=== PATIENT | female | born 1940 | race Caucasian/White ===

== ENCOUNTER 2019-03-14 16:55 | Inpatient (IN) | payer MEDICARE ==
[2019-03-15] MEDS ORDERED: Maalox 30 mL Cup PO PRN (14:26)
[2019-03-15] MEDS ORDERED: Magnesium Hydroxide (MOM) 30 mL UDC PO PRN (14:26)
[2019-03-16] MEDS: Multivitamin Tab PO SCH (08:50)
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
--- NOTE | 2019-03-17 00:07 | History & Physical ---
ADMIT DATE: 03/16/2019 REASON FOR ADMISSION: Psychiatric disorder. HISTORY OF PRESENT ILLNESS: This is an 78-year-old female with underlying history of hypertension, hyperlipidemia, hypothyroidism and prior history of valvular heart disease, status post repair, on Coumadin, admitted to the [facility] for underlying psychiatric illnesses by Dr. Hinkle. Dr. Hinkle requested medical H and P on this patient. During my evaluation, the patient's daughter was at bedside. Daughter helped me providing most of the history. 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 PAST MEDICAL HISTORY: Hypothyroidism; hypertension; hyperlipidemia; old CVA, late effect and valvular heart ____ in the past. FAMILY HISTORY: Noncontributory. SOCIAL HISTORY: The patient lives at home. No reported alcohol, tobacco or drug use. CURRENT MEDICATIONS: Per medication reconciliation. ALLERGIES: No known allergies. REVIEW OF SYSTEMS: No reported fever, no chills, no diarrhea, no vomiting, no abdominal pain, no headache, no chest pain or trouble breathing or concerns. PHYSICAL EXAMINATION: VITAL SIGNS: Temperature 97.4, pulse 61, respirations 18, blood pressure 134/59, oxygen ____ on room air. HEENT: Unremarkable. HEART: S1, S2 normal. LUNGS: Clear to auscultation. ABDOMEN: Soft, nontender, no guarding. NEUROLOGIC: The patient is awake, alert, follows commands. Aphasia noted. ASSESSMENT: 1. 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 2. Hypertension. 3. Hyperlipidemia. 4. Hypothyroidism. 5. Valvular heart disease, status post surgery. PLAN: The patient is admitted to [facility] Unit. Psych evaluation and management per Psychiatry. Continue atenolol. The patient is also on Coumadin. The patient's vital signs will be monitored. Psychotropic medication management per psychiatrist. The patient is medically stable. . JOB# [id number]
[2019-03-17] MEDS: Multivitamin Tab PO SCH (08:42)
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
[2019-03-18] MEDS: Multivitamin Tab PO SCH (08:45)
[2019-03-19] MEDS: Multivitamin Tab PO SCH (09:04)
[2019-03-20] MEDS: Multivitamin Tab PO SCH (08:35)
[2019-03-21] MEDS: Multivitamin Tab PO SCH (09:55)
[2019-03-22] MEDS: Levothyroxine 0.05 Mg Tab PO SCH (06:41)
[2019-03-22] MEDS: Multivitamin Tab PO SCH (09:02)
[2019-03-23] MEDS: Levothyroxine 0.05 Mg Tab PO SCH (06:45)
[2019-03-23] MEDS: Multivitamin Tab PO SCH (09:33)
[2019-03-24] MEDS: Levothyroxine 0.05 Mg Tab PO SCH (06:57)
[2019-03-24] MEDS: Multivitamin Tab PO SCH (08:43)
[2019-03-25] MEDS: Levothyroxine 0.05 Mg Tab PO SCH (06:39)
[2019-03-25] MEDS: Multivitamin Tab PO SCH (08:11)
[2019-03-26] MEDS: Levothyroxine 0.05 Mg Tab PO SCH (06:44)
[2019-03-26] MEDS: Multivitamin Tab PO SCH (08:34)
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
--- NOTE | 2019-03-26 20:34 | Progress Notes ---
DATE: 03/23/2019 SUBJECTIVE: The patient in the hospital, still calm, and sleeping about 5 hours. Speech impaired, still disoriented, somewhat sad, withdrawn, keeps to herself. We are working on a safe discharge plan. Otherwise, no agitation, no discomfort noted. JOB# [id number]
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
--- NOTE | 2019-03-26 20:34 | Progress Notes ---
DATE: 03/20/2019 SUBJECTIVE: The patient in the hospital, poorly oriented, medication compliant, very calm and cooperative, unable to care for basic needs. She is unclear where she is going to go when she leaves here, is mostly here because of her disability, history of CVA. PLAN: We will continue to monitor pending confirmation of placement by social media marketer. JOB# [id number]
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
--- NOTE | 2019-03-26 20:35 | Progress Notes ---
DATE: SUBJECTIVE: The patient was seen and evaluated. The patient's chart reviewed. No acute events reported overnight. Today on avif-yi-[id number] evaluation, the patient continues to demonstrate severe aphasia, difficult to communicate, was easily anxious, stressful. ASSESSMENT AND PLAN: History of dementia with behavior disturbances. She continues to be disorganized. We will continue with primary psychiatrist's treatment plan and goals. [facility]# [id number]
--- NOTE | 2019-03-26 20:35 | Progress Notes ---
DATE: 03/25/2019 SUBJECTIVE: The patient was seen and evaluated. The patient's chart reviewed. Today on [id number]-nz-[id number] evaluation, the patient continues to need redirections, very difficult to understand, incoherent at times, disorganized. She has been compliant, noted to be slightly calmer, but needs a lot of redirection. MENTAL STATUS EXAMINATION: Disengaged and avoidant, difficult to understand, incoherent at times. ASSESSMENT AND PLAN: The patient is an 78-year-old female with behavior disturbances. We will continue with the current medication regimen. Reconciliation reviewed, which includes Tylenol, Maalox, Tenormin, Lipitor, Synthroid, milk of magnesia, Theragran, warfarin, and Ambien as needed. JOB# [id number]
[2019-03-27] MEDS: Levothyroxine 0.05 Mg Tab PO SCH (06:34)
[2019-03-27] MEDS: Multivitamin Tab PO SCH (08:31)
--- NOTE | 2019-03-27 20:52 | Progress Notes ---
DATE: 03/27/2019 The patient is calm. Currently pending a safe discharge plan. No events, no agitation, not really able to understand it whatsoever. Fair sleep, fair appetite, aphasic. We will continue to monitor, concerns for her ability to tend to her basic needs. JOB# [id number]
[2019-03-28] MEDS: Levothyroxine 0.05 Mg Tab PO SCH (06:43)
[2019-03-28] MEDS: Multivitamin Tab PO SCH (08:44)
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
[2019-03-29] MEDS: Levothyroxine 0.05 Mg Tab PO SCH (06:43)
--- NOTE | 2019-03-29 07:10 | Progress Notes ---
DATE: 03/29/2019 SUBJECTIVE: The patient is in the hospital. Resting comfortably, seems to be calm, following unit rules and directions. No outbursts. We are trying to help her with a safe discharge plan. It is unclear where she is going to go when she leaves. Coffee Grower involves with this. Medications were reviewed. Labs reviewed. Fair sleep and appetite. JOB# [id number]
[2019-03-29] MEDS: Multivitamin Tab PO SCH (08:41)
[2019-03-30] MEDS: Levothyroxine 0.05 Mg Tab PO SCH (06:41)
[2019-03-30] MEDS: Multivitamin Tab PO SCH (09:05)
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
[2019-03-31] MEDS: Levothyroxine 0.05 Mg Tab PO SCH (06:37)
[2019-03-31] MEDS: Multivitamin Tab PO SCH (08:24)
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
[2019-04-01] MEDS: Levothyroxine 0.05 Mg Tab PO SCH (06:39)
[2019-04-01] MEDS: Multivitamin Tab PO SCH (08:32)
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
[2019-04-02] MEDS: Levothyroxine 0.05 Mg Tab PO SCH (06:42)
[2019-04-02] MEDS: Multivitamin Tab PO SCH (08:22)
[2019-04-02] MEDS ORDERED: WARFARIN SODIUM PO SCH (20:00)
--- NOTE | 2019-04-02 22:27 | Progress Notes ---
DATE: SUBJECTIVE: The patient was seen, chart reviewed, and discussed with staff. The patient continues to be disoriented, confused, and confabulating most answers. She is currently awaiting placement, has been compliant with medications. No reports of any verbal or physical altercations. PLAN: We will continue to follow up with cyanide case hardener regarding the patient's placement upon discharge. Titrate medications as needed. JOB# [id number]
[2019-04-03] MEDS: Levothyroxine 0.05 Mg Tab PO SCH (06:47)
[2019-04-03] MEDS: Multivitamin Tab PO SCH (09:05)
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
--- NOTE | 2019-04-03 21:26 | General Progress Note ---
Subjective - Review of Systems Service Date: 04/02/19 Subjective: Patient seen and examined doing ok no new concern noted Objective - Physical Exam Vitals and I&O: Vital Signs Temp 97.1 F 04/03/19 20:14 Pulse 52 04/03/19 20:14 Resp 18 04/03/19 20:14 BP 134/72 04/03/19 13:56 Pulse Ox 96 04/03/19 20:14 Intake & Output 04/03/19 04/03/19 04/04/19 06:59 18:59 06:59 Intake Total 240 240 Balance 240 240 Intake: Oral 240 240 Other: # Voids 2 3 2 # Bowel Movements 0 Active Medications: Current Medications Acetaminophen (Tylenol) 650 mg PO Q4HR PRN PRN Reason: Mild Pain (Scale 1-3) Stop: 05/14/19 14:25 Acetaminophen (Tylenol) 650 mg PO Q4HR PRN PRN Reason: TEMP ABOVE 100 Stop: 05/14/19 14:47 Al Hydrox/Mg Hydrox/Simethicone (Maalox) 30 ml PO Q4HR PRN PRN Reason: GI DISTRESS Stop: 05/14/19 14:25 Atenolol (Tenormin) 25 mg PO DAILY [facility] Stop: 05/16/19 08:59 Last Admin: 04/03/19 09:05 Dose: 25 mg Atorvastatin Calcium (Lipitor) 40 mg PO DAILY [facility]; Protocol Stop: 05/16/19 08:59 Last Admin: 04/03/19 09:05 Dose: 40 mg Levothyroxine Sodium (Synthroid) 0.05 mg PO QDAC [facility] Stop: 05/21/19 07:29 Last Admin: 04/03/19 06:47 Dose: 0.05 mg Multivitamins/Vitamin C (Theragran) 1 tab PO DAILY [facility] Stop: 05/15/19 08:59 Last Admin: 04/03/19 09:05 Dose: 1 tab Warfarin Sodium (Coumadin Per Pharmacy) 1 ea [facility] PRN PRN PRN Reason: PER PHARMACY Stop: 05/23/19 13:18 Warfarin Sodium 5 mg/ Warfarin (Sodium 2.5 mg) 7.5 mg PO QPM [facility] Stop: 04/05/19 16:59 Last Admin: 04/03/19 16:33 Dose: 7.5 mg Zolpidem Tartrate (Ambien) 5 mg PO HS PRN PRN Reason: Insomnia Stop: 05/14/19 14:25 Last Admin: 03/22/19 21:23 Dose: 5 mg Cardiovascular: Regular rate Lungs: Clear to auscultation Assessment/Plan - Assessment Assessment: Afib Hypothyrodism Hyperlipidemia Psych disorder - Plan Plan: Monitor PT/INR Coumidine Levothyroxine Statin Psych follow up Nutritional Asmnt/Malnutr-PDOC - Dietary Evaluation Malnutrition Findings (Please click <Entered> for more info): Nutritional Asmnt/Malnutrition Start: 03/21/19 11: 55 Text: Status: Complete Freq: Protocol: Document 03/21/19 11:55 NENO (Rec: 03/21/19 11:58 NENO [email or web address]) Nutritional Asmnt/Malnutrition Patient General Information Nutritional Screening Low 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 Pt is eating an estimated 70% of meals x 3 days Per Meal/ Nutrition Activity Record. Dietary is currently providing an estimated 3100 kcals and 115 gm Pro, per Pt PO intake this is providing an estimated 2170 kcals and 80gm Pro to meet 100+% kcal and 100+% Pro needs- adequate to promote gradual weight gain to trend towards normal BMI and IBW. Visited pt today, she is hard of hearing, so I wrote down questions for her pertaining to her knowledge of a food- drug interaction between vitamin K and her coumadin medication. Pt was confused, unable to get answers/ comprehend what pt was saying; unable to provide education. Gave the charge NurseLaura education materials to place in d/c packet. Anthropometrics HT: 57 WT: 115 LB (52.27 kg) BMI: 18.01 (underweight) GI/ Skin Integrity GI: WNL, Soft, Flat BM: 03/19 x1 I/O: 2000/Not Noted Skin: WNL, Dryness Wilbert: 19 Diet Order: Regular Estimated Energy Needs: ( Geriatric, Underweight) 1351-6901 kcals (28-35 kcals/ kg) 52-63g Pro (1.0-1.2 g/kg) 2139-2202 ml (28-35 ml/kg) Current Diet Order/ Nutrition Support Regular Patient / S.O Can't verbalize diet edu Pertinent Medications Maalox (PRN), Lipitor, MOM ( PRN), Theragran, Warfarin, Tenormin Pertinent Labs 03/17: HDL 47, LDL 137, A1c 5. 6, ProTime 10.6, INR 1.1 Nutritional Hx/Data Height 1.7 m Height (Calculated Centimeters) 170.2 Current Weight (lbs) 52.163 kg Weight (Calculated Kilograms) 52.2 Weight (Calculated Grams) 64875.1 [place] Body Weight 135 LB (61.36 kg) % [place] Body Weight 85 Body Mass Index (BMI) 18.0 Weight Status Underweight GI Symptoms GI Symptoms None Last BM 03/19 x1 Skin Integrity/Comment: Skin: WNL, Dryness Wilbert: 19 Estimated Nutritional Goals BEE in Kcals: Using Current wt Calories/Kcals/Kg 28-35 Kcals Calculated 5426-2040 Protein: Using Current wt Protein g/k.0-1.2 Protein Calculated 52-63 Fluid: ml 3441-2664 ml (28-35 ml/kg) Nutritional Problem 1. Problem Problem Food-medication (Warfarin) interaction Etiology r/t vitamin K intake and medication effectiveness Signs/Symptoms: aeb pt on Warfarin. Malnutrition Related to Morbid Obesity Malnutrition related to morbid obesity No Intervention/Recommendation Recommendations by RD Decrease Calorie Intake Comments 1. Continue regular diet as tolerated. 2. Provide food-medication interaction education materials (completed). Expected Outcomes/Goals Expected Outcomes/Goals 1. PO intake to continue to meet 75% of estimated nutritional needs. 2. Monitor PO intake, wt, nutrition related labs, and skin integrity. 3. F/U as low risk in 7-10 days, 03/28-03/31/2019
[2019-04-04] MEDS: Levothyroxine 0.05 Mg Tab PO SCH (06:48)
[2019-04-04] MEDS: Multivitamin Tab PO SCH (08:40)
--- NOTE | 2019-04-04 21:15 | Progress Notes ---
DATE: 04/04/2019 SUBJECTIVE: An 78-year-old female who remains very confused on exam. I do spend a lot of time yesterday and today, trying to further assess her mentation, but it is very difficult. I talked to her, wrote things down on paper. She cannot abstract, she cannot subtract or do any addition. She asked to refer to a calendar to tell me the year, the month and the date. She cannot tell me where she is or why she is here. I did fill out capacity declaration. PLAN: We will continue to monitor. Also pending a safe disposition. JOB# [id number]
--- NOTE | 2019-04-04 23:48 | Progress Notes ---
DATE: Case was discussed with staff of the patient, reviewed records. The patient continues to stay for herself. Continues to be unpredictable, unable to express herself. Sleeping better, eating better. Staff is working on discharge plan. No side effects with the medication, no sedation, no nausea, no extrapyramidal symptoms. We will continue outpatient group therapy, milieu therapy, and adjust medications as needed. JOB# [id number]
[2019-04-05] MEDS: Levothyroxine 0.05 Mg Tab PO SCH (06:40)
[2019-04-05] MEDS: Multivitamin Tab PO SCH (08:57)
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
[2019-04-06] MEDS: Levothyroxine 0.05 Mg Tab PO SCH (06:38)
[2019-04-06] MEDS: Multivitamin Tab PO SCH (08:06)
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
== END 2019-04-06 16:30 | DRG 884 ==
LOC: GERO 03-15 12:06
PROVIDERS: ADMIT Psychiatry & Neurology Psychiatry; ATTEND Psychiatry & Neurology Psychiatry
DX: F03.90 Unspecified dementia, unspecified severity, without behavioral disturbance, psychotic disturbance, mood disturbance, and anxiety (principal); F39 Unspecified mood [affective] disorder; I10 Essential (primary) hypertension; E78.5 Hyperlipidemia, unspecified; E03.9 Hypothyroidism, unspecified; Z79.01 Long term (current) use of anticoagulants; I69.320 Aphasia following cerebral infarction
CPT/HCPCS: 83036-90; 90899; G0410; Z7610

== ENCOUNTER 2019-11-15 23:26 | Inpatient (IN) | payer MEDICARE, MEDICAID ==
[2019-11-16] MEDS ORDERED: Acetaminophen 500 MG TAB PO PRN (04:05)
[2019-11-16] MEDS ORDERED: Magnesium Hydroxide (MOM) 30 mL UDC PO PRN (04:05)
[2019-11-16] MEDS ORDERED: Maalox 30 mL Cup PO PRN (04:05)
[2019-11-16 04:06] VITALS: BP 152/92
[2019-11-16] MEDS: Multivitamin Tab PO SCH (08:24)
--- NOTE | 2019-11-16 15:45 | History & Physical ---
ADMIT DATE: 11/16/2019 CHIEF COMPLAINT: Agitation, depression. HISTORY OF PRESENT ILLNESS: We have an 79-year-old female with dementia, hypertension, cardiovascular disease, who is on Coumadin, presents with agitation and depression. The patient is confused, cannot give any meaningful history. It is not quite clear at this time why the patient is taking Coumadin. No nausea, vomiting, abdominal pain, diarrhea. PAST MEDICAL HISTORY: 1. Dementia. 2. Hypertension. PAST SURGICAL HISTORY: None. MEDICATIONS: List includes Coumadin. ALLERGIES: None. SOCIAL HISTORY: Tobacco, IV drugs, ETOH negative. PHYSICAL EXAMINATION: VITAL SIGNS: Temperature is 98.2, pulse 56, respirations 18, blood pressure is 108/49, satting 97% on room air. HEENT: Normocephalic, atraumatic head exam. NECK: Supple. CARDIOVASCULAR: Regular rate and rhythm. LUNGS: Decreased breath sounds. ABDOMEN: Soft, nontender. EXTREMITIES: No edema, cyanosis or clubbing. CN is grossly intact ASSESSMENT AND PLAN: 1. Coagulopathy, on Coumadin. 2. Dementia. 3. Hypertension. The patient will have routine labs done including stat INR. Rechecked with the family members to get better understanding of her medical profile and specifically to know why the patient is taking Coumadin. I will await for their phone call back. JOB# [id number] MARINA
[2019-11-17] MEDS: Levothyroxine 0.05 Mg Tab PO SCH (06:38)
[2019-11-17] MEDS: Multivitamin Tab PO SCH (08:39)
[2019-11-17 15:44] LABS: CHOLESTEROL 158 mg/dL (<200); LDL CHOLESTEROL 101 mg/dL (0-129); TRIGLYCERIDES 130 mg/dL (30-150)
--- NOTE | 2019-11-17 16:04 | Internal Medicine Prog Note ---
Internal Medicine Subjective - Subjective Service Date: 11/17/19 Patient seen and examined:: without staff Patient is:: awake Per staff patient has:: no adverse event, no episodes of fall Internal Medicine Objective - Results Recent Labs: Laboratory Last Values POC Glucose 96 MG/DL (70 - 105) 11/16/19 03:10 Triglycerides 130 mg/dL (30-150) 11/17/19 12:31 Cholesterol 158 mg/dL (<200) 11/17/19 12:31 LDL Cholesterol 101 mg/dL (0-129) 11/17/19 12:31 HDL Cholesterol 42 mg/dL (>55) L 11/17/19 12:31 - Physical Exam Vitals and I&O: Vital Signs Temp 97.5 F 11/17/19 15:29 Pulse 57 11/17/19 15:29 Resp 20 11/17/19 15:29 BP 102/63 11/17/19 15:29 Pulse Ox 96 11/17/19 15:29 Intake & Output 11/16/19 11/17/19 11/17/19 18:59 06:59 18:59 Intake Total 1000 120 Balance 1000 120 Intake: Oral 1000 120 Other: # Voids 3 2 # Bowel Movements 1 Active Medications: Current Medications Acetaminophen (Tylenol) 650 mg PO Q4H PRN PRN Reason: Pain (Mild 1-3) Stop: 01/15/20 04:04 Acetaminophen (Tylenol Extra Strength) 1,000 mg PO Q6H PRN PRN Reason: Pain (Moderate 4-6) Stop: 01/15/20 04:04 Al Hydrox/Mg Hydrox/Simethicone (Maalox) 30 ml PO Q4HR PRN PRN Reason: GI DISTRESS Stop: 01/15/20 04:04 Atenolol (Tenormin) 25 mg PO DAILY [facility] Stop: 01/16/20 08:59 Last Admin: 11/17/19 08:41 Dose: 25 mg Atorvastatin Calcium (Lipitor) 40 mg PO DAILY [facility]; Protocol Stop: 01/16/20 08:59 Last Admin: 11/17/19 08:38 Dose: 40 mg Ibuprofen (Motrin) 400 mg PO Q4H PRN PRN Reason: Pain (Severe 7-10) Stop: 01/15/20 04:04 Levothyroxine Sodium (Synthroid) 0.05 mg PO QDAC [facility] Stop: 01/16/20 07:29 Last Admin: 11/17/19 06:38 Dose: 0.05 mg Lorazepam (Ativan) 0.5 mg PO Q4HR PRN; Protocol PRN Reason: Anxiety Stop: 12/16/19 04:04 Last Admin: 11/17/19 08:38 Dose: 0.5 mg Magnesium Hydroxide (Milk Of Magnesia) 30 ml PO HS PRN PRN Reason: Constipation Multivitamins/Vitamin C (Theragran) 1 tab PO DAILY [facility] Stop: 01/15/20 08:59 Last Admin: 11/17/19 08:39 Dose: 1 tab Quetiapine Fumarate (Seroquel) 12.5 mg PO BID [facility]; Protocol Stop: 01/15/20 08:59 Last Admin: 11/17/19 08:38 Dose: 12.5 mg Zolpidem Tartrate (Ambien) 5 mg PO HS PRN PRN Reason: Insomnia Stop: 01/15/20 04:52 HEENT: NC/AT, PERRLA Neck: Supple, No JVD Lungs: CTAB Cardiovascular: RRR, Normal S1, Normal S2 Abdomen: soft Extremities: clear Internal Medicine Assmt/Plan - Assessment Assessment: 1. HTN 2. Depression - Plan Plan: continue supportive care d/w r.n. reviewed complete medical records Nutritional Asmnt/Malnutr-PDOC - Dietary Evaluation Malnutrition Findings (Please click <Entered> for more info): Nutritional Asmnt/Malnutrition Start: 11/16/19 12: 33 Text: Status: Complete Freq: Protocol: Document 11/16/19 13:10 NENO (Rec: 11/16/19 13:14 NENO [id number]) Nutritional Asmnt/Malnutrition Patient General Information Nutritional Screening High Risk Diagnosis Acute Psychosis Pertinent Medical Hx/Surgical Hx HTN Subjective Information Consult: Poor nutrition, pt thin and underweight Pt is a 79-year-old female admitted on 11/15 d/t acute psychosis, agitation and striking out. Provided pt with an Ensure at 10am, visited pt at 12pm and she had drank the entire Ensure. Pt nodded she enjoyed it, pt did not use words to speak. Pt allowed me to do a limited nutrition focused physical examination as she was unable to completely sit up to view back areas. Adding Ensure Enlive TID at snack times. Nutrition Focused Physical Exam Head and Face (Severe Malnutrition) Orbital region: Slightly dark circles, somewhat hollow Buccal Region: Hollow, sunken cheeks Hindu region: Deep hallowing, scooping Upper Body (Mild to Moderate Malnutrition) Upper Arm Region: Some depth to pinch, not ample Clavicle Bone Region: Clavicle shows with some protrusion Acromion Bone Region: Shoulder to arm joints squared, bones prominent Ribs/Midaxillary Line (Normal) Thoracic and Lumbar Region: Chest is full and round with ribs not evident Minimal ability to visualize the iliac crest Lower Extremities (Mild to Moderate Malnutrition) Anterior thigh region: Slight depressions Patellar Region: Kneecap is more prominent Posterior Calf Region: Less- developed bulb of muscle Anthropometrics HT: 57 WT: 104 LB (47.27 kg) IBW: 135 LB (61.36 kg), 77% IBW BMI: 16.31 (underweight) GI/ Skin Integrity GI: WNL, Non-tender, Flat, Soft BM: Not Noted I/O: 120/Not Noted Skin: WNL Wilbert: 19 Diet Order: Cardiac Estimated Energy Needs: ( Underweight, CBW) 9378-5817 kcals (30-35 kcals/ kg) 55-60g Pro (1.2-1.3 g/kg) 3639-3458 ml (30-35 ml/kg) Current Diet Order/ Nutrition Support Cardiac Patient / S.O Can't verbalize diet edu Pertinent Medications Maalox (PRN), MOM (PRN), Theragran Pertinent Labs 11/13: PT 16.2, INR 1.64, Na 146, Cl 112, TSH 5.337, Free T4 0.85 Nutritional Hx/Data Height 1.7 m Height (Calculated Centimeters) 170.2 Current Weight (lbs) 47.174 kg Weight (Calculated Kilograms) 47.2 Weight (Calculated Grams) 09232.6 [place] Body Weight 135 LB (61.36 kg) % [place] Body Weight 77 Body Mass Index (BMI) 16.2 Weight Status Underweight GI Symptoms Last BM Not Noted Skin Integrity/Comment: Skin: WNL Wilbert: 19 Estimated Nutritional Goals BEE in Kcals: Using Current wt Calories/Kcals/Kg 30-35 Kcals Calculated 2922-7956 Protein: Using Current wt Protein g/k.2-1.3 Protein Calculated 55-60 Fluid: ml 2654-5699 ml (30-35 ml/kg) Nutritional Problem 2. Problem Problem Malnutrition Etiology r/t inadequate energy and protein intake Signs/Symptoms: aeb mild to moderate muscle and fat wasting noted on exam with some clavicle, Acromion, and kneecap protrusion, and slight bulb of muscle in calf region. 1. Problem Problem Underweight Etiology r/t chronic energy underconsumption Signs/Symptoms: aeb BMI >18.5 (16.31). Malnutrition Alert Body Fat Depletion (Non-Severe) Mild Depletion Muscle Mass (Non-Severe) Mild Depletion Is there a minimum of two criteria Yes selected? Query Text:Check all the applicable criteria. A minimum of two criteria are recommended for diagnosis of either severe or non-severe malnutrition. Malnutrition Related to Morbid Obesity Malnutrition related to morbid obesity No Intervention/Recommendation Recommendations by RD Increase Calorie Intake Comments 1.Continue cardiac diet as tolerated. 2.Add Ensure Enlive TID ( completed). 3.Nurse to encourage PO intake . 4.Weekly weights. Expected Outcomes/Goals Expected Outcomes/Goals 1.PO intake to meet 75% of estimated nutritional needs. 2.Gradual weight gain (~1.0 LB /week) trending toward IBW preferred. 3.Monitor PO intake, wt, nutrition related labs, and skin integrity. 4.F/U as moderate risk in 3-5 days, 11/18-11/20.
[2019-11-17 16:56] LABS: HEMATOCRIT 41.5 % (36-48); HEMOGLOBIN 12.8 g/dL (12.0-16.0); MEAN CORPUSCULAR HEMOGLOBIN 27 pg (27-31); MEAN CORPUSCULAR HGB CONC 31 % (32-36); MEAN CORPUSCULAR VOLUME 88 fL (79.0-98.0); RED BLOOD COUNT 4.73 MIL/uL (4.2-6.2); RED CELL DISTRIBUTION WIDTH 17.1 % (9.0-15.0); WHITE BLOOD COUNT 5.5 K/uL (4.8-10.8)
[2019-11-17 16:57] LABS: % NEUTROPHILS 59.2 % (40-70); BASOPHILS % (AUTO) 0.4 % (0.0-2.0); EOSINOPHILS # (AUTO) 0.1 K/uL (0.0-0.4); EOSINOPHILS % (AUTO) 1.5 % (0-4); LYMPHOCYTES # (AUTO) 1.6 K/uL (1.0-5.5); LYMPHOCYTES % (AUTO) 28.9 % (20.5-51.5); MONOCYTES # (AUTO) 0.5 K/uL (0.0-1.0); NEUTROPHILS # (AUTO) 3.2 K/uL (1.8-7.7); PLATELET COUNT 162 K/uL (130-430)
--- NOTE | 2019-11-17 18:09 | Progress Notes ---
DATE: 11/17/2019 SUBJECTIVE: Chart reviewed and the patient interviewed. Also discussed the patient's condition with the staff and reviewed records and labs. The patient is still anxious and still seems to be confused and easily agitated. The patient also is restless and is interacting minimally with others. The patient also is isolative and is still unable to give any safe plan for self-care. The patient also is irritable and angry mood and needs redirections. Otherwise, the patient is compliant with taking her medications and no side effects of medications. ASSESSMENT: The patient is still agitated and is still psychotic. TREATMENT PLAN: Continue monitoring behavior and condition closely. Also, continue working on her ineffective coping and follow up closely. [facility]# [id number]
--- NOTE | 2019-11-17 23:28 | Psychiatric Evaluation ---
DATE OF SERVICE: 11/16/2019 AGE: 79. SEX: Female. PHYSICIAN: Dr. Hinkle. CHIEF COMPLAINT: Agitation and grave disability. HISTORY OF PRESENT ILLNESS: The patient is an 79-year-old female who I evaluated in [facility] because of agitation and irritability. The patient basically was brought into the Emergency Room from her home because of combative behavior and erratic behavior. The patient is nonverbal, but according to the family and the EMS report, the patient has old bruises on her chest and possibly accuse, but at the same time when I was interviewing the patient, she was hitting her chest with her fist. The patient lives with her daughter and also it seems that her daughter has some psychiatric issues according to the Emergency Room staff. During my interview, the patient was not able to communicate at all and she was hitting her chest with her fist. The patient also was in irritable mood. She also was not able to express herself or her feelings and she did not know where she is at. PAST PSYCHIATRIC HISTORY: Not known, but the patient has dementia. PAST MEDICAL HISTORY: No major medical problems. SOCIAL HISTORY: The patient lives with her daughter. No known alcohol or any street drug use. ALLERGIES: No known allergies. MENTAL STATUS EXAMINATION: The patient appears her stated age. Anxious. Flat affect. In an irritable mood. The patient was hitting her chest during the interview. The patient also was easily agitated. She was also whispering to herself. The patient did not answer questions regarding hallucinations or delusions or suicidal or homicidal ideations because of her confusion and agitation. The patient is alert, but seems to be disoriented to time, place, person and situation. Impaired immediate, recent and remote memories and she was not able to even tell me about her date, also that might be because she is nonverbal. Poor insight and poor judgment. ASSESSMENT: PRIMARY DIAGNOSIS: Dementia, severe, with psychotic features and behavioral disturbances. TREATMENT PLAN: Monitor the patient's behavior closely. Also, monitor psychotropic medications and we will work on her irritability and her agitation and also evaluate possible use of psychotropic medications. ESTIMATED LENGTH OF STAY: 5-7 days. PATIENT'S STRENGTHS AND WEAKNESSES: The patient's strength is not clear at this time. Weakness is her poor impulse control and her irritability. AFTER DISCHARGE PLAN: Possibly, the patient will need placement and [facility] accepted the patient. Planning to discharge the patient to [facility] when medically stable. [facility]# [id number]
[2019-11-18] MEDS: Levothyroxine 0.05 Mg Tab PO SCH (06:30)
[2019-11-18 07:09] LABS: A1C 5.6 % (4.8-5.6)
[2019-11-18] MEDS: Multivitamin Tab PO SCH (08:33)
--- NOTE | 2019-11-18 11:33 | Progress Notes ---
DATE: 11/18/2019 COVERING PHYSICIAN: Randall Hinkle M.D. SUBJECTIVE: The patient was interviewed. Case was discussed with staff. Chart and records were reviewed. The patient continues to be disorganized, continues to be selectively mute, continues to have poor hygiene and poor self-care. The patient was visited at bedside this afternoon. The patient is poorly cooperative with the interview. She is not cooperating at all, remains mute, looking away from this provider, gets easily angered, irritable and has no plan for self-care at this time. MENTAL STATUS EXAMINATION: The patient is a disheveled female with poor eye contact, selectively mute. Mood and affect appear to be labile. Thought process appears to be disorganized. Unable to assess for any suicidal or homicidal thoughts. Unable to assess for hallucinations or paranoia, but the patient appears to be internally preoccupied. She is alert and oriented to her name only. Insight, judgment and impulse control appeared to be poor. ASSESSMENT AND PLAN: The patient requires ongoing acute psychiatric hospitalization due to severity of her symptoms. The patient continues to remain disorganized, easily irritable, agitated, angry and with poor self-care, therefore we will transition the patient on to a 14-day hold. We will also encourage the patient to verbalize her needs and participate in group and milieu therapy. We will also continue her medications as prescribed. No side effects have been noted. [facility]# [id number]
[2019-11-18 14:01] LABS: PROTHROMBIN TIME (TEST) 10.9 SECS (9.5-12.5)
[2019-11-18 14:06] LABS: INR 1.08 (0.5-1.4)
--- NOTE | 2019-11-18 15:10 | Internal Medicine Prog Note ---
Internal Medicine Subjective - Subjective Service Date: 11/18/19 Patient seen and examined:: without staff Patient is:: awake Per staff patient has:: no adverse event, no episodes of fall Internal Medicine Objective - Results Result Diagrams: 11/17/19 12:31 Recent Labs: Laboratory Last Values WBC 5.5 K/uL (4.8-10.8) 11/17/19 12:31 RBC 4.73 MIL/uL (4.2-6.2) 11/17/19 12:31 Hgb 12.8 g/dL (12.0-16.0) 11/17/19 12:31 Hct 41.5 % (36-48) 11/17/19 12:31 MCV 88 fL (79.0-98.0) 11/17/19 12: MCH 27 pg (27-31) 11/17/19 12: MCHC 31 % (32-36) L 11/17/19 12:31 RDW 17.1 % (9.0-15.0) H 11/17/19 12:31 Plt Count 162 K/uL (130-430) 11/17/19 12:31 MPV 11.3 fl (7.4-10.4) H 11/17/19 12:31 Neut % (Auto) 59.2 % (40-70) 11/17/19 12: Lymph % (Auto) 28.9 % (20.5-51.5) 11/17/19 12: [place] % (Auto) 10.0 % (1.7-9.3) H 11/17/19 12:31 Eos % (Auto) 1.5 % (0-4) 11/17/19 12:31 Baso % (Auto) 0.4 % (0.0-2.0) 11/17/19 12:31 Neut # (Auto) 3.2 K/uL (1.8-7.7) 11/17/19 12: Lymph # (Auto) 1.6 K/uL (1.0-5.5) 11/17/19 12:31 [place] # (Auto) 0.5 K/uL (0.0-1.0) 11/17/19 12: Eos # (Auto) 0.1 K/uL (0.0-0.4) 11/17/19 12:31 Baso # (Auto) 0.0 K/uL (0.0-0.2) 11/17/19 12:31 PT 10.9 SECS (9.5-12.5) 11/18/19 08:21 INR 1.08 (0.5-1.4) 11/18/19 08:21 POC Glucose 96 MG/DL (70 - 105) 11/16/19 03:10 Hemoglobin A1c 5.6 % (4.8-5.6) 11/17/19 12:49 Triglycerides 130 mg/dL (30-150) 11/17/19 12:31 Cholesterol 158 mg/dL (<200) 11/17/19 12:31 LDL Cholesterol 101 mg/dL (0-129) 11/17/19 12:31 HDL Cholesterol 42 mg/dL (>55) L 11/17/19 12:31 - Physical Exam Vitals and I&O: Vital Signs Temp 99.1 F 11/18/19 06:23 Pulse 56 11/18/19 08:34 Resp 19 11/18/19 06:23 BP 125/51 11/18/19 08:34 Pulse Ox 94 11/18/19 06:23 Intake & Output 11/17/19 11/18/19 11/18/19 18:59 06:59 18:59 Intake Total 300 Balance 300 Intake: Oral 300 Other: # Voids 1 # Bowel Movements 0 Active Medications: Current Medications Acetaminophen (Tylenol) 650 mg PO Q4H PRN PRN Reason: Pain (Mild 1-3) Stop: 01/15/20 04:04 Acetaminophen (Tylenol Extra Strength) 1,000 mg PO Q6H PRN PRN Reason: Pain (Moderate 4-6) Stop: 01/15/20 04:04 Al Hydrox/Mg Hydrox/Simethicone (Maalox) 30 ml PO Q4HR PRN PRN Reason: GI DISTRESS Stop: 01/15/20 04:04 Atenolol (Tenormin) 25 mg PO DAILY [facility] Stop: 01/16/20 08:59 Last Admin: 11/18/19 08:34 Dose: Not Given Atorvastatin Calcium (Lipitor) 40 mg PO DAILY [facility]; Protocol Stop: 01/16/20 08:59 Last Admin: 11/18/19 08:32 Dose: 40 mg Ibuprofen (Motrin) 400 mg PO Q4H PRN PRN Reason: Pain (Severe 7-10) Stop: 11/18/19 04:04 Levothyroxine Sodium (Synthroid) 0.05 mg PO QDAC [facility] Stop: 01/16/20 07:29 Last Admin: 11/18/19 06:30 Dose: 0.05 mg Lorazepam (Ativan) 0.5 mg PO Q4HR PRN; Protocol PRN Reason: Anxiety Stop: 12/16/19 04:04 Last Admin: 11/17/19 16:28 Dose: 0.5 mg Magnesium Hydroxide (Milk Of Magnesia) 30 ml PO HS PRN PRN Reason: Constipation Multivitamins/Vitamin C (Theragran) 1 tab PO DAILY [facility] Stop: 01/15/20 08:59 Last Admin: 11/18/19 08:33 Dose: 1 tab Quetiapine Fumarate (Seroquel) 12.5 mg PO BID [facility]; Protocol Stop: 01/15/20 08:59 Last Admin: 11/18/19 08:33 Dose: 12.5 mg Warfarin Sodium (Coumadin) 5 mg PO 1300 [facility]; Protocol Stop: 01/18/20 12:59 Zolpidem Tartrate (Ambien) 5 mg PO HS PRN PRN Reason: Insomnia Stop: 01/15/20 04:52 HEENT: NC/AT, PERRLA Neck: Supple, No JVD Lungs: CTAB Cardiovascular: RRR, Normal S1, Normal S2 Abdomen: soft Extremities: clear Neurological: no change Internal Medicine Assmt/Plan - Assessment Assessment: 1. Coagulapathy 2. CAD 3. HTN - Plan Plan: resumed coumadin 5 mg po daily check inr, pt, ptt in 2-3 days d/w r.n. reviewed complete medical records Nutritional Asmnt/Malnutr-PDOC - Dietary Evaluation Malnutrition Findings (Please click <Entered> for more info): Nutritional Asmnt/Malnutrition Start: 11/16/19 12: 33 Text: Status: Complete Freq: Protocol: Document 11/16/19 13:10 NENO (Rec: 11/16/19 13:14 NENO [id number]) Nutritional Asmnt/Malnutrition Patient General Information Nutritional Screening High Risk Diagnosis Acute Psychosis Pertinent Medical Hx/Surgical Hx HTN Subjective Information Consult: Poor nutrition, pt thin and underweight Pt is a 79-year-old female admitted on 11/15 d/t acute psychosis, agitation and striking out. Provided pt with an Ensure at 10am, visited pt at 12pm and she had drank the entire Ensure. Pt nodded she enjoyed it, pt did not use words to speak. Pt allowed me to do a limited nutrition focused physical examination as she was unable to completely sit up to view back areas. Adding Ensure Enlive TID at snack times. Nutrition Focused Physical Exam Head and Face (Severe Malnutrition) Orbital region: Slightly dark circles, somewhat hollow Buccal Region: Hollow, sunken cheeks Confucianism region: Deep hallowing, scooping Upper Body (Mild to Moderate Malnutrition) Upper Arm Region: Some depth to pinch, not ample Clavicle Bone Region: Clavicle shows with some protrusion Acromion Bone Region: Shoulder to arm joints squared, bones prominent Ribs/Midaxillary Line (Normal) Thoracic and Lumbar Region: Chest is full and round with ribs not evident Minimal ability to visualize the iliac crest Lower Extremities (Mild to Moderate Malnutrition) Anterior thigh region: Slight depressions Patellar Region: Kneecap is more prominent Posterior Calf Region: Less- developed bulb of muscle Anthropometrics HT: 57 WT: 104 LB (47.27 kg) IBW: 135 LB (61.36 kg), 77% IBW BMI: 16.31 (underweight) GI/ Skin Integrity GI: WNL, Non-tender, Flat, Soft BM: Not Noted I/O: 120/Not Noted Skin: WNL Wilbert: 19 Diet Order: Cardiac Estimated Energy Needs: ( Underweight, CBW) 6937-3806 kcals (30-35 kcals/ kg) 55-60g Pro (1.2-1.3 g/kg) 2426-4148 ml (30-35 ml/kg) Current Diet Order/ Nutrition Support Cardiac Patient / S.O Can't verbalize diet edu Pertinent Medications Maalox (PRN), MOM (PRN), Theragran Pertinent Labs 11/13: PT 16.2, INR 1.64, Na 146, Cl 112, TSH 5.337, Free T4 0.85 Nutritional Hx/Data Height 1.7 m Height (Calculated Centimeters) 170.2 Current Weight (lbs) 47.174 kg Weight (Calculated Kilograms) 47.2 Weight (Calculated Grams) 98889.6 [place] Body Weight 135 LB (61.36 kg) % [place] Body Weight 77 Body Mass Index (BMI) 16.2 Weight Status Underweight GI Symptoms Last BM Not Noted Skin Integrity/Comment: Skin: WNL Wilbert: 19 Estimated Nutritional Goals BEE in Kcals: Using Current wt Calories/Kcals/Kg 30-35 Kcals Calculated 5232-5420 Protein: Using Current wt Protein g/k.2-1.3 Protein Calculated 55-60 Fluid: ml 3743-3412 ml (30-35 ml/kg) Nutritional Problem 2. Problem Problem Malnutrition Etiology r/t inadequate energy and protein intake Signs/Symptoms: aeb mild to moderate muscle and fat wasting noted on exam with some clavicle, Acromion, and kneecap protrusion, and slight bulb of muscle in calf region. 1. Problem Problem Underweight Etiology r/t chronic energy underconsumption Signs/Symptoms: aeb BMI >18.5 (16.31). Malnutrition Alert Body Fat Depletion (Non-Severe) Mild Depletion Muscle Mass (Non-Severe) Mild Depletion Is there a minimum of two criteria Yes selected? Query Text:Check all the applicable criteria. A minimum of two criteria are recommended for diagnosis of either severe or non-severe malnutrition. Malnutrition Related to Morbid Obesity Malnutrition related to morbid obesity No Intervention/Recommendation Recommendations by RD Increase Calorie Intake Comments 1.Continue cardiac diet as tolerated. 2.Add Ensure Enlive TID ( completed). 3.Nurse to encourage PO intake . 4.Weekly weights. Expected Outcomes/Goals Expected Outcomes/Goals 1.PO intake to meet 75% of estimated nutritional needs. 2.Gradual weight gain (~1.0 LB /week) trending toward IBW preferred. 3.Monitor PO intake, wt, nutrition related labs, and skin integrity. 4.F/U as moderate risk in 3-5 days, 11/18-11/20.
[2019-11-19] MEDS: Levothyroxine 0.05 Mg Tab PO SCH (06:33)
[2019-11-19] MEDS: Multivitamin Tab PO SCH (09:06)
--- NOTE | 2019-11-19 11:15 | Progress Notes ---
DATE: 11/19/[address] Randall Hinkle. SUBJECTIVE: The patient was interviewed. Case was discussed with staff. Chart and records were reviewed. Per the staff, the patient remains mostly in her room. The patient has been unkempt. She has been disorganized and confused. She needed significant prompting to take a shower, but eventually did with assistance. Was able to sleep well last night, sleeping over 9 hours. This morning, the patient is isolative to her room, withdrawn and not cooperating at all with the interview, attempting to engage the patient with yes or no answers. However, the patient stares at this provider and then quickly goes back to sleep. She appears to get easily irritable at times and other times she is smiling. She has no plan for self-care and needs significant staff assistance for simple ADLs. MENTAL STATUS EXAMINATION: The patient is an unkempt female, lying in the hospital bed, selectively mute, weak, awake and alert, oriented to her name, but remains selectively mute and not willing to engage much more than this. Appears to be internally preoccupied, appears to be labile, has very poor insight, judgment and impulse control. ASSESSMENT AND PLAN: We will continue acute psychiatric hospitalization given the severity of symptoms. We will also continue medications as prescribed. No side effects have been noted. We will also encourage the patient to communicate her needs and to attend group and milieu therapy and attend to her hygiene. JOB# [id number]
--- NOTE | 2019-11-19 14:35 | Internal Medicine Prog Note ---
Internal Medicine Subjective - Subjective Service Date: 11/19/19 Patient seen and examined:: without staff Patient is:: awake Per staff patient has:: no adverse event, no episodes of fall Internal Medicine Objective - Results Result Diagrams: 11/17/19 12:31 Recent Labs: Laboratory Last Values WBC 5.5 K/uL (4.8-10.8) 11/17/19 12:31 RBC 4.73 MIL/uL (4.2-6.2) 11/17/19 12:31 Hgb 12.8 g/dL (12.0-16.0) 11/17/19 12:31 Hct 41.5 % (36-48) 11/17/19 12:31 MCV 88 fL (79.0-98.0) 11/17/19 12: MCH 27 pg (27-31) 11/17/19 12: MCHC 31 % (32-36) L 11/17/19 12:31 RDW 17.1 % (9.0-15.0) H 11/17/19 12:31 Plt Count 162 K/uL (130-430) 11/17/19 12:31 MPV 11.3 fl (7.4-10.4) H 11/17/19 12:31 Neut % (Auto) 59.2 % (40-70) 11/17/19 12: Lymph % (Auto) 28.9 % (20.5-51.5) 11/17/19 12: [place] % (Auto) 10.0 % (1.7-9.3) H 11/17/19 12:31 Eos % (Auto) 1.5 % (0-4) 11/17/19 12:31 Baso % (Auto) 0.4 % (0.0-2.0) 11/17/19 12:31 Neut # (Auto) 3.2 K/uL (1.8-7.7) 11/17/19 12: Lymph # (Auto) 1.6 K/uL (1.0-5.5) 11/17/19 12:31 [place] # (Auto) 0.5 K/uL (0.0-1.0) 11/17/19 12: Eos # (Auto) 0.1 K/uL (0.0-0.4) 11/17/19 12:31 Baso # (Auto) 0.0 K/uL (0.0-0.2) 11/17/19 12:31 PT 10.9 SECS (9.5-12.5) 11/18/19 08:21 INR 1.08 (0.5-1.4) 11/18/19 08:21 POC Glucose 96 MG/DL (70 - 105) 11/16/19 03:10 Hemoglobin A1c 5.6 % (4.8-5.6) 11/17/19 12:49 Triglycerides 130 mg/dL (30-150) 11/17/19 12:31 Cholesterol 158 mg/dL (<200) 11/17/19 12:31 LDL Cholesterol 101 mg/dL (0-129) 11/17/19 12:31 HDL Cholesterol 42 mg/dL (>55) L 11/17/19 12:31 - Physical Exam Vitals and I&O: Vital Signs Temp 98.2 F 11/19/19 06:16 Pulse 56 11/19/19 09:06 Resp 18 11/19/19 06:16 BP 142/74 11/19/19 09:06 Pulse Ox 93 11/19/19 06:16 Intake & Output 11/18/19 11/19/19 11/19/19 18:59 06:59 18:59 Intake Total 1000 240 Balance 1000 240 Intake: Oral 1000 240 Other: # Voids 4 2 # Bowel Movements 1 Active Medications: Current Medications Acetaminophen (Tylenol) 650 mg PO Q4H PRN PRN Reason: Pain (Mild 1-3) Stop: 01/15/20 04:04 Acetaminophen (Tylenol Extra Strength) 1,000 mg PO Q6H PRN PRN Reason: Pain (Moderate 4-6) Stop: 01/15/20 04:04 Al Hydrox/Mg Hydrox/Simethicone (Maalox) 30 ml PO Q4HR PRN PRN Reason: GI DISTRESS Stop: 01/15/20 04:04 Atenolol (Tenormin) 25 mg PO DAILY CORNELIO Stop: 01/16/20 08:59 Last Admin: 11/19/19 09:06 Dose: 25 mg Atorvastatin Calcium (Lipitor) 40 mg PO DAILY CORNELIO; Protocol Stop: 01/16/20 08:59 Last Admin: 11/19/19 09:02 Dose: 40 mg Levothyroxine Sodium (Synthroid) 0.05 mg PO QDAC CORNELIO Stop: 01/16/20 07:29 Last Admin: 11/19/19 06:33 Dose: 0.05 mg Lorazepam (Ativan) 0.5 mg PO Q4HR PRN; Protocol PRN Reason: Anxiety Stop: 12/16/19 04:04 Last Admin: 11/17/19 16:28 Dose: 0.5 mg Magnesium Hydroxide (Milk Of Magnesia) 30 ml PO HS PRN PRN Reason: Constipation Multivitamins/Vitamin C (Theragran) 1 tab PO DAILY CORNELIO Stop: 01/15/20 08:59 Last Admin: 11/19/19 09:06 Dose: 1 tab Quetiapine Fumarate (Seroquel) 12.5 mg PO BID CORNELIO; Protocol Stop: 01/15/20 08:59 Last Admin: 11/19/19 09:05 Dose: 12.5 mg Warfarin Sodium (Coumadin) 5 mg PO 1300 CORNELIO; Protocol Stop: 01/18/20 12:59 Zolpidem Tartrate (Ambien) 5 mg PO HS PRN PRN Reason: Insomnia Stop: 01/15/20 04:52 Last Admin: 11/18/19 21:26 Dose: 5 mg HEENT: NC/AT, PERRLA Neck: Supple, No JVD Lungs: CTAB Cardiovascular: RRR, Normal S1, Normal S2 Abdomen: soft Extremities: clear Neurological: no change Internal Medicine Assmt/Plan - Assessment Assessment: 1. Coagulapathy 2. CAD 3. HTN - Plan Plan: resumed coumadin 5 mg po daily check INR, PT, PTT d/w r.n. reviewed complete medical records Nutritional Asmnt/Malnutr-PDOC - Dietary Evaluation Malnutrition Findings (Please click <Entered> for more info): Nutritional Asmnt/Malnutrition Start: 11/16/19 12: 33 Text: Status: Complete Freq: Protocol: Document 11/16/19 13:10 NENO (Rec: 11/16/19 13:14 NENO [id number]) Nutritional Asmnt/Malnutrition Patient General Information Nutritional Screening High Risk Diagnosis Acute Psychosis Pertinent Medical Hx/Surgical Hx HTN Subjective Information Consult: Poor nutrition, pt thin and underweight Pt is a 79-year-old female admitted on 8/20 d/t acute psychosis, agitation and striking out. Provided pt with an Ensure at 10am, visited pt at 12pm and she had drank the entire Ensure. Pt nodded she enjoyed it, pt did not use words to speak. Pt allowed me to do a limited nutrition focused physical examination as she was unable to completely sit up to view back areas. Adding Ensure Enlive TID at snack times. Nutrition Focused Physical Exam Head and Face (Severe Malnutrition) Orbital region: Slightly dark circles, somewhat hollow Buccal Region: Hollow, sunken cheeks Gnosticism region: Deep hallowing, scooping Upper Body (Mild to Moderate Malnutrition) Upper Arm Region: Some depth to pinch, not ample Clavicle Bone Region: Clavicle shows with some protrusion Acromion Bone Region: Shoulder to arm joints squared, bones prominent Ribs/Midaxillary Line (Normal) Thoracic and Lumbar Region: Chest is full and round with ribs not evident Minimal ability to visualize the iliac crest Lower Extremities (Mild to Moderate Malnutrition) Anterior thigh region: Slight depressions Patellar Region: Kneecap is more prominent Posterior Calf Region: Less- developed bulb of muscle Anthropometrics HT: 57 WT: 104 LB (47.27 kg) IBW: 135 LB (61.36 kg), 77% IBW BMI: 16.31 (underweight) GI/ Skin Integrity GI: WNL, Non-tender, Flat, Soft BM: Not Noted I/O: 120/Not Noted Skin: WNL Wilbert: 19 Diet Order: Cardiac Estimated Energy Needs: ( Underweight, CBW) 9314-9742 kcals (30-35 kcals/ kg) 55-60g Pro (1.2-1.3 g/kg) 6978-1017 ml (30-35 ml/kg) Current Diet Order/ Nutrition Support Cardiac Patient / S.O Can't verbalize diet edu Pertinent Medications Maalox (PRN), MOM (PRN), Theragran Pertinent Labs 11/13: PT 16.2, INR 1.64, Na 146, Cl 112, TSH 5.337, Free T4 0.85 Nutritional Hx/Data Height 1.7 m Height (Calculated Centimeters) 170.2 Current Weight (lbs) 47.174 kg Weight (Calculated Kilograms) 47.2 Weight (Calculated Grams) 32392.6 [place] Body Weight 135 LB (61.36 kg) % [place] Body Weight 77 Body Mass Index (BMI) 16.2 Weight Status Underweight GI Symptoms Last BM Not Noted Skin Integrity/Comment: Skin: WNL Wilbert: 19 Estimated Nutritional Goals BEE in Kcals: Using Current wt Calories/Kcals/Kg 30-35 Kcals Calculated 5893-1836 Protein: Using Current wt Protein g/k.2-1.3 Protein Calculated 55-60 Fluid: ml 0580-3103 ml (30-35 ml/kg) Nutritional Problem 2. Problem Problem Malnutrition Etiology r/t inadequate energy and protein intake Signs/Symptoms: aeb mild to moderate muscle and fat wasting noted on exam with some clavicle, Acromion, and kneecap protrusion, and slight bulb of muscle in calf region. 1. Problem Problem Underweight Etiology r/t chronic energy underconsumption Signs/Symptoms: aeb BMI >18.5 (16.31). Malnutrition Alert Body Fat Depletion (Non-Severe) Mild Depletion Muscle Mass (Non-Severe) Mild Depletion Is there a minimum of two criteria Yes selected? Query Text:Check all the applicable criteria. A minimum of two criteria are recommended for diagnosis of either severe or non-severe malnutrition. Malnutrition Related to Morbid Obesity Malnutrition related to morbid obesity No Intervention/Recommendation Recommendations by RD Increase Calorie Intake Comments 1.Continue cardiac diet as tolerated. 2.Add Ensure Enlive TID ( completed). 3.Nurse to encourage PO intake . 4.Weekly weights. Expected Outcomes/Goals Expected Outcomes/Goals 1.PO intake to meet 75% of estimated nutritional needs. 2.Gradual weight gain (~1.0 LB /week) trending toward IBW preferred. 3.Monitor PO intake, wt, nutrition related labs, and skin integrity. 4.F/U as moderate risk in 3-5 days, 11/18-11/20.
[2019-11-20] MEDS: Levothyroxine 0.05 Mg Tab PO SCH (06:31)
[2019-11-20] MEDS: Multivitamin Tab PO SCH (08:26)
[2019-11-20 11:18] LABS: PROTHROMBIN TIME (TEST) 9.9 SECS (9.5-12.5)
[2019-11-20 11:20] LABS: INR 0.98 (0.5-1.4)
--- NOTE | 2019-11-20 14:51 | Internal Medicine Prog Note ---
Internal Medicine Subjective - Subjective Service Date: 11/20/19 Patient seen and examined:: without staff Patient is:: awake Per staff patient has:: no adverse event, no episodes of fall Internal Medicine Objective - Results Result Diagrams: 11/17/19 12:31 Recent Labs: Laboratory Last Values WBC 5.5 K/uL (4.8-10.8) 11/17/19 12:31 RBC 4.73 MIL/uL (4.2-6.2) 11/17/19 12:31 Hgb 12.8 g/dL (12.0-16.0) 11/17/19 12:31 Hct 41.5 % (36-48) 11/17/19 12:31 MCV 88 fL (79.0-98.0) 11/17/19 12: MCH 27 pg (27-31) 11/17/19 12: MCHC 31 % (32-36) L 11/17/19 12: RDW 17.1 % (9.0-15.0) H 11/17/19 12:31 Plt Count 162 K/uL (130-430) 11/17/19 12:31 MPV 11.3 fl (7.4-10.4) H 11/17/19 12:31 Neut % (Auto) 59.2 % (40-70) 11/17/19 12: Lymph % (Auto) 28.9 % (20.5-51.5) 11/17/19 12: [place] % (Auto) 10.0 % (1.7-9.3) H 11/17/19 12:31 Eos % (Auto) 1.5 % (0-4) 11/17/19 12:31 Baso % (Auto) 0.4 % (0.0-2.0) 11/17/19 12:31 Neut # (Auto) 3.2 K/uL (1.8-7.7) 11/17/19 12: Lymph # (Auto) 1.6 K/uL (1.0-5.5) 11/17/19 12:31 [place] # (Auto) 0.5 K/uL (0.0-1.0) 11/17/19 12: Eos # (Auto) 0.1 K/uL (0.0-0.4) 11/17/19 12:31 Baso # (Auto) 0.0 K/uL (0.0-0.2) 11/17/19 12:31 PT 9.9 SECS (9.5-12.5) 11/20/19 07:50 INR 0.98 (0.5-1.4) 11/20/19 07:50 POC Glucose 96 MG/DL (70 - 105) 11/16/19 03:10 Hemoglobin A1c 5.6 % (4.8-5.6) 11/17/19 12:49 Triglycerides 130 mg/dL (30-150) 11/17/19 12:31 Cholesterol 158 mg/dL (<200) 11/17/19 12:31 LDL Cholesterol 101 mg/dL (0-129) 11/17/19 12:31 HDL Cholesterol 42 mg/dL (>55) L 11/17/19 12:31 - Physical Exam Vitals and I&O: Vital Signs Temp 97.9 F 11/20/19 14:34 Pulse 63 11/20/19 14:34 Resp 20 11/20/19 14:34 BP 149/68 11/20/19 14:34 Pulse Ox 97 11/20/19 14:34 Intake & Output 11/19/19 11/20/19 11/20/19 18:59 06:59 18:59 Intake Total 800 Balance 800 Intake: Oral 800 Other: # Voids 4 3 # Bowel Movements 1 0 Active Medications: Current Medications Acetaminophen (Tylenol) 650 mg PO Q4H PRN PRN Reason: Pain (Mild 1-3) Stop: 01/15/20 04:04 Acetaminophen (Tylenol Extra Strength) 1,000 mg PO Q6H PRN PRN Reason: Pain (Moderate 4-6) Stop: 01/15/20 04:04 Al Hydrox/Mg Hydrox/Simethicone (Maalox) 30 ml PO Q4HR PRN PRN Reason: GI DISTRESS Stop: 01/15/20 04:04 Atenolol (Tenormin) 25 mg PO DAILY CORNELIO Stop: 01/16/20 08:59 Last Admin: 11/20/19 08:25 Dose: 25 mg Atorvastatin Calcium (Lipitor) 40 mg PO DAILY CORNELIO; Protocol Stop: 01/16/20 08:59 Last Admin: 08/24/20 08:26 Dose: 40 mg Levothyroxine Sodium (Synthroid) 0.05 mg PO QDAC CORNELIO Stop: 01/16/20 07:29 Last Admin: 11/20/19 06:31 Dose: 0.05 mg Lorazepam (Ativan) 0.5 mg PO Q4HR PRN; Protocol PRN Reason: Anxiety Stop: 12/16/19 04:04 Last Admin: 11/17/19 16:28 Dose: 0.5 mg Magnesium Hydroxide (Milk Of Magnesia) 30 ml PO HS PRN PRN Reason: Constipation Multivitamins/Vitamin C (Theragran) 1 tab PO DAILY CORNELIO Stop: 01/15/20 08:59 Last Admin: 11/20/19 08:26 Dose: 1 tab Quetiapine Fumarate (Seroquel) 25 mg PO BID CORNELIO; Protocol Stop: 01/19/20 16:59 Warfarin Sodium (Coumadin) 5 mg PO 1300 CORNELIO; Protocol Stop: 01/18/20 12:59 Last Admin: 11/20/19 12:26 Dose: 5 mg Zolpidem Tartrate (Ambien) 5 mg PO HS PRN PRN Reason: Insomnia Stop: 01/15/20 04:52 Last Admin: 11/19/19 21:26 Dose: 5 mg HEENT: NC/AT, PERRLA Neck: Supple, No JVD Lungs: CTAB Cardiovascular: RRR, Normal S1, Normal S2 Abdomen: soft Extremities: clear Neurological: no change Internal Medicine Assmt/Plan - Assessment Assessment: 1. Coagulapathy 2. CAD 3. HTN - Plan Plan: coumadin 5 mg po daily check INR, PT, PTT d/w r.n. reviewed complete medical records Nutritional Asmnt/Malnutr-PDOC - Dietary Evaluation Malnutrition Findings (Please click <Entered> for more info): Nutritional Asmnt/Malnutrition Start: 11/16/19 12: 33 Text: Status: Complete Freq: Protocol: Document 11/16/19 13:10 NENO (Rec: 11/16/19 13:14 NENO [id number]) Nutritional Asmnt/Malnutrition Patient General Information Nutritional Screening High Risk Diagnosis Acute Psychosis Pertinent Medical Hx/Surgical Hx HTN Subjective Information Consult: Poor nutrition, pt thin and underweight Pt is a 79-year-old female admitted on 11/15 d/t acute psychosis, agitation and striking out. Provided pt with an Ensure at 10am, visited pt at 12pm and she had drank the entire Ensure. Pt nodded she enjoyed it, pt did not use words to speak. Pt allowed me to do a limited nutrition focused physical examination as she was unable to completely sit up to view back areas. Adding Ensure Enlive TID at snack times. Nutrition Focused Physical Exam Head and Face (Severe Malnutrition) Orbital region: Slightly dark circles, somewhat hollow Buccal Region: Hollow, sunken cheeks Yazdanism region: Deep hallowing, scooping Upper Body (Mild to Moderate Malnutrition) Upper Arm Region: Some depth to pinch, not ample Clavicle Bone Region: Clavicle shows with some protrusion Acromion Bone Region: Shoulder to arm joints squared, bones prominent Ribs/Midaxillary Line (Normal) Thoracic and Lumbar Region: Chest is full and round with ribs not evident Minimal ability to visualize the iliac crest Lower Extremities (Mild to Moderate Malnutrition) Anterior thigh region: Slight depressions Patellar Region: Kneecap is more prominent Posterior Calf Region: Less- developed bulb of muscle Anthropometrics HT: 57 WT: 104 LB (47.27 kg) IBW: 135 LB (61.36 kg), 77% IBW BMI: 16.31 (underweight) GI/ Skin Integrity GI: WNL, Non-tender, Flat, Soft BM: Not Noted I/O: 120/Not Noted Skin: WNL Wilbert: 19 Diet Order: Cardiac Estimated Energy Needs: ( Underweight, CBW) 2249-7028 kcals (30-35 kcals/ kg) 55-60g Pro (1.2-1.3 g/kg) 0767-1736 ml (30-35 ml/kg) Current Diet Order/ Nutrition Support Cardiac Patient / S.O Can't verbalize diet edu Pertinent Medications Maalox (PRN), MOM (PRN), Theragran Pertinent Labs 11/13: PT 16.2, INR 1.64, Na 146, Cl 112, TSH 5.337, Free T4 0.85 Nutritional Hx/Data Height 1.7 m Height (Calculated Centimeters) 170.2 Current Weight (lbs) 47.174 kg Weight (Calculated Kilograms) 47.2 Weight (Calculated Grams) 16142.6 [place] Body Weight 135 LB (61.36 kg) % [place] Body Weight 77 Body Mass Index (BMI) 16.2 Weight Status Underweight GI Symptoms Last BM Not Noted Skin Integrity/Comment: Skin: WNL Wilbert: 19 Estimated Nutritional Goals BEE in Kcals: Using Current wt Calories/Kcals/Kg 30-35 Kcals Calculated 0340-3227 Protein: Using Current wt Protein g/k.2-1.3 Protein Calculated 55-60 Fluid: ml 0103-6120 ml (30-35 ml/kg) Nutritional Problem 2. Problem Problem Malnutrition Etiology r/t inadequate energy and protein intake Signs/Symptoms: aeb mild to moderate muscle and fat wasting noted on exam with some clavicle, Acromion, and kneecap protrusion, and slight bulb of muscle in calf region. 1. Problem Problem Underweight Etiology r/t chronic energy underconsumption Signs/Symptoms: aeb BMI >18.5 (16.31). Malnutrition Alert Body Fat Depletion (Non-Severe) Mild Depletion Muscle Mass (Non-Severe) Mild Depletion Is there a minimum of two criteria Yes selected? Query Text:Check all the applicable criteria. A minimum of two criteria are recommended for diagnosis of either severe or non-severe malnutrition. Malnutrition Related to Morbid Obesity Malnutrition related to morbid obesity No Intervention/Recommendation Recommendations by RD Increase Calorie Intake Comments 1.Continue cardiac diet as tolerated. 2.Add Ensure Enlive TID ( completed). 3.Nurse to encourage PO intake . 4.Weekly weights. Expected Outcomes/Goals Expected Outcomes/Goals 1.PO intake to meet 75% of estimated nutritional needs. 2.Gradual weight gain (~1.0 LB /week) trending toward IBW preferred. 3.Monitor PO intake, wt, nutrition related labs, and skin integrity. 4.F/U as moderate risk in 3-5 days, 11/18-11/20.
--- NOTE | 2019-11-21 00:57 | Progress Notes ---
DATE: 11/20/2019 Case was discussed with staff of the patient, reviewed records. Covering for Dr. Hinkle. This is an 79-year-old female who was admitted on 11/16/2019 on a hold for agitation and grave disability. The patient was seen by Dr. Hinkle at [facility] because of agitation, irritability. Basically, was brought into the Emergency Room from her home because of combative behavior and erratic behavior. The patient is nonverbal. According to family and EMS reported the patient has old bruises on her chest and possibly by the same time when I was interviewing the patient, she was hitting her chest with her fist. The patient lives with her daughter and also it seems that her daughter has some psychiatric issues. According to the Emergency Room staff, when interviewed by Dr. Hinkle was unable to communicate at all. She was hitting her chest with her fist. She was very irritable, unable to express herself. When I try talked her actually she kept pointing to her chest. She was not hitting on it. However, she is pointing to it and then she has some written things, but did not make sense to me. I am not sure if she is delusional, still mute, unable to express herself. I am not sure if she is deaf or mute. The patient was started by Dr. Hinkle on Seroquel 12.5 mg twice a day. I will be increasing her Seroquel to 25 mg twice a day and so far no side effects with the medication, no sedation, no nausea, no extrapyramidal symptoms. We will continue outpatient group therapy, milieu therapy, adjust medication as needed. JOB# [id number] [facility]ITAL[facility]
[2019-11-21] MEDS: Levothyroxine 0.05 Mg Tab PO SCH (06:51)
[2019-11-21] MEDS: Multivitamin Tab PO SCH (08:23)
--- NOTE | 2019-11-21 18:31 | Internal Medicine Prog Note ---
Internal Medicine Subjective - Subjective Service Date: 11/21/19 Patient seen and examined:: without staff Patient is:: awake Per staff patient has:: no adverse event, no episodes of fall Internal Medicine Objective - Results Result Diagrams: 11/17/19 12:31 Recent Labs: Laboratory Last Values WBC 5.5 K/uL (4.8-10.8) 11/17/19 12:31 RBC 4.73 MIL/uL (4.2-6.2) 11/17/19 12:31 Hgb 12.8 g/dL (12.0-16.0) 11/17/19 12:31 Hct 41.5 % (36-48) 11/17/19 12:31 MCV 88 fL (79.0-98.0) 11/17/19 12: MCH 27 pg (27-31) 11/17/19 12: MCHC 31 % (32-36) L 11/17/19 12: RDW 17.1 % (9.0-15.0) H 11/17/19 12:31 Plt Count 162 K/uL (130-430) 11/17/19 12:31 MPV 11.3 fl (7.4-10.4) H 11/17/19 12:31 Neut % (Auto) 59.2 % (40-70) 11/17/19 12: Lymph % (Auto) 28.9 % (20.5-51.5) 11/17/19 12: [place] % (Auto) 10.0 % (1.7-9.3) H 11/17/19 12:31 Eos % (Auto) 1.5 % (0-4) 11/17/19 12:31 Baso % (Auto) 0.4 % (0.0-2.0) 11/17/19 12:31 Neut # (Auto) 3.2 K/uL (1.8-7.7) 11/17/19 12: Lymph # (Auto) 1.6 K/uL (1.0-5.5) 11/17/19 12:31 [place] # (Auto) 0.5 K/uL (0.0-1.0) 11/17/19 12: Eos # (Auto) 0.1 K/uL (0.0-0.4) 11/17/19 12:31 Baso # (Auto) 0.0 K/uL (0.0-0.2) 11/17/19 12:31 PT 9.9 SECS (9.5-12.5) 11/20/19 07:50 INR 0.98 (0.5-1.4) 11/20/19 07:50 POC Glucose 96 MG/DL (70 - 105) 11/16/19 03:10 Hemoglobin A1c 5.6 % (4.8-5.6) 11/17/19 12:49 Triglycerides 130 mg/dL (30-150) 11/17/19 12:31 Cholesterol 158 mg/dL (<200) 11/17/19 12:31 LDL Cholesterol 101 mg/dL (0-129) 11/17/19 12:31 HDL Cholesterol 42 mg/dL (>55) L 11/17/19 12:31 - Physical Exam Vitals and I&O: Vital Signs Temp 98.5 F 11/21/19 14:36 Pulse 79 11/21/19 14:36 Resp 18 11/21/19 14:36 BP 96/54 11/21/19 14:36 Pulse Ox 95 11/21/19 14:36 Intake & Output 11/20/19 11/21/19 11/21/19 18:59 06:59 18:59 Intake Total 960 480 900 Balance 960 480 900 Intake: Oral 960 480 900 Other: # Voids 4 3 4 # Bowel Movements 1 0 1 Active Medications: Current Medications Acetaminophen (Tylenol) 650 mg PO Q4H PRN PRN Reason: Pain (Mild 1-3) Stop: 01/15/20 04:04 Acetaminophen (Tylenol Extra Strength) 1,000 mg PO Q6H PRN PRN Reason: Pain (Moderate 4-6) Stop: 01/15/20 04:04 Al Hydrox/Mg Hydrox/Simethicone (Maalox) 30 ml PO Q4HR PRN PRN Reason: GI DISTRESS Stop: 01/15/20 04:04 Atenolol (Tenormin) 25 mg PO DAILY [facility] Stop: 01/16/20 08:59 Last Admin: 11/21/19 08:23 Dose: 25 mg Atorvastatin Calcium (Lipitor) 40 mg PO DAILY [facility]; Protocol Stop: 01/16/20 08:59 Last Admin: 11/21/19 08:23 Dose: 40 mg Levothyroxine Sodium (Synthroid) 0.05 mg PO QDAC [facility] Stop: 01/16/20 07:29 Last Admin: 11/21/19 06:51 Dose: 0.05 mg Lorazepam (Ativan) 0.5 mg PO Q4HR PRN; Protocol PRN Reason: Anxiety Stop: 12/16/19 04:04 Last Admin: 11/21/19 08:24 Dose: 0.5 mg Magnesium Hydroxide (Milk Of Magnesia) 30 ml PO HS PRN PRN Reason: Constipation Multivitamins/Vitamin C (Theragran) 1 tab PO DAILY [facility] Stop: 01/15/20 08:59 Last Admin: 11/21/19 08:23 Dose: 1 tab Quetiapine Fumarate (Seroquel) 25 mg PO BID [facility]; Protocol Stop: 01/19/20 16:59 Last Admin: 11/21/19 16:33 Dose: 25 mg Warfarin Sodium (Coumadin) 5 mg PO 1300 [facility]; Protocol Stop: 01/18/20 12:59 Last Admin: 11/21/19 12:46 Dose: 5 mg Zolpidem Tartrate (Ambien) 5 mg PO HS PRN PRN Reason: Insomnia Stop: 01/15/20 04:52 Last Admin: 11/20/19 20:42 Dose: 5 mg HEENT: NC/AT, PERRLA Neck: Supple, No JVD Lungs: CTAB Cardiovascular: RRR, Normal S1, Normal S2 Abdomen: soft Extremities: clear Neurological: no change Internal Medicine Assmt/Plan - Assessment Assessment: 1. Coagulapathy 2. CAD 3. HTN - Plan Plan: coumadin 5 mg po daily check INR, PT, PTT d/w r.n. reviewed complete medical records Nutritional Asmnt/Malnutr-PDOC - Dietary Evaluation Malnutrition Findings (Please click <Entered> for more info): Nutritional Asmnt/Malnutrition Start: 11/16/19 12: 33 Text: Status: Complete Freq: Protocol: Document 11/16/19 13:10 NENO (Rec: 11/16/19 13:14 NENO [id number]) Nutritional Asmnt/Malnutrition Patient General Information Nutritional Screening High Risk Diagnosis Acute Psychosis Pertinent Medical Hx/Surgical Hx HTN Subjective Information Consult: Poor nutrition, pt thin and underweight Pt is a 79-year-old female admitted on 11/15 d/t acute psychosis, agitation and striking out. Provided pt with an Ensure at 10am, visited pt at 12pm and she had drank the entire Ensure. Pt nodded she enjoyed it, pt did not use words to speak. Pt allowed me to do a limited nutrition focused physical examination as she was unable to completely sit up to view back areas. Adding Ensure Enlive TID at snack times. Nutrition Focused Physical Exam Head and Face (Severe Malnutrition) Orbital region: Slightly dark circles, somewhat hollow Buccal Region: Hollow, sunken cheeks [place] region: Deep hallowing, scooping Upper Body (Mild to Moderate Malnutrition) Upper Arm Region: Some depth to pinch, not ample Clavicle Bone Region: Clavicle shows with some protrusion Acromion Bone Region: Shoulder to arm joints squared, bones prominent Ribs/Midaxillary Line (Normal) Thoracic and Lumbar Region: Chest is full and round with ribs not evident Minimal ability to visualize the iliac crest Lower Extremities (Mild to Moderate Malnutrition) Anterior thigh region: Slight depressions Patellar Region: Kneecap is more prominent Posterior Calf Region: Less- developed bulb of muscle Anthropometrics HT: 57 WT: 104 LB (47.27 kg) IBW: 135 LB (61.36 kg), 77% IBW BMI: 16.31 (underweight) GI/ Skin Integrity GI: WNL, Non-tender, Flat, Soft BM: Not Noted I/O: 120/Not Noted Skin: WNL Wilbert: 19 Diet Order: Cardiac Estimated Energy Needs: ( Underweight, CBW) 5245-6653 kcals (30-35 kcals/ kg) 55-60g Pro (1.2-1.3 g/kg) 6958-3423 ml (30-35 ml/kg) Current Diet Order/ Nutrition Support Cardiac Patient / S.O Can't verbalize diet edu Pertinent Medications Maalox (PRN), MOM (PRN), Theragran Pertinent Labs 11/13: PT 16.2, INR 1.64, Na 146, Cl 112, TSH 5.337, Free T4 0.85 Nutritional Hx/Data Height 1.7 m Height (Calculated Centimeters) 170.2 Current Weight (lbs) 47.174 kg Weight (Calculated Kilograms) 47.2 Weight (Calculated Grams) 16950.6 [place] Body Weight 135 LB (61.36 kg) % [place] Body Weight 77 Body Mass Index (BMI) 16.2 Weight Status Underweight GI Symptoms Last BM Not Noted Skin Integrity/Comment: Skin: WNL Wilbert: 19 Estimated Nutritional Goals BEE in Kcals: Using Current wt Calories/Kcals/Kg 30-35 Kcals Calculated 3722-3584 Protein: Using Current wt Protein g/k.2-1.3 Protein Calculated 55-60 Fluid: ml 7664-0158 ml (30-35 ml/kg) Nutritional Problem 2. Problem Problem Malnutrition Etiology r/t inadequate energy and protein intake Signs/Symptoms: aeb mild to moderate muscle and fat wasting noted on exam with some clavicle, Acromion, and kneecap protrusion, and slight bulb of muscle in calf region. 1. Problem Problem Underweight Etiology r/t chronic energy underconsumption Signs/Symptoms: aeb BMI >18.5 (16.31). Malnutrition Alert Body Fat Depletion (Non-Severe) Mild Depletion Muscle Mass (Non-Severe) Mild Depletion Is there a minimum of two criteria Yes selected? Query Text:Check all the applicable criteria. A minimum of two criteria are recommended for diagnosis of either severe or non-severe malnutrition. Malnutrition Related to Morbid Obesity Malnutrition related to morbid obesity No Intervention/Recommendation Recommendations by RD Increase Calorie Intake Comments 1.Continue cardiac diet as tolerated. 2.Add Ensure Enlive TID ( completed). 3.Nurse to encourage PO intake . 4.Weekly weights. Expected Outcomes/Goals Expected Outcomes/Goals 1.PO intake to meet 75% of estimated nutritional needs. 2.Gradual weight gain (~1.0 LB /week) trending toward IBW preferred. 3.Monitor PO intake, wt, nutrition related labs, and skin integrity. 4.F/U as moderate risk in 3-5 days, 11/18-11/20.
--- NOTE | 2019-11-21 19:14 | Progress Notes ---
DATE: 11/21/2019 Case was discussed with staff of the patient, reviewed records. The patient continues to be mostly unable to express herself. The patient continues to have poor insight, continues to be unpredictable, impulsive, unable to make safe plan for self-care. No side effects with the medication, no sedation, no nausea, no extrapyramidal symptoms. Tolerating increase in Seroquel with no side effects. We will continue to work with the patient in group therapy, milieu therapy, and adjust the medications as needed. JOB# [id number]
[2019-11-22] MEDS: Levothyroxine 0.05 Mg Tab PO SCH (06:32)
[2019-11-22] MEDS: Multivitamin Tab PO SCH (08:41)
[2019-11-22 12:42] LABS: CALCIUM SERUM 9.9 mg/dL (8.4-10.2); CREATININE - SERUM 1.11 mg/dL (0.70-1.30); POTASSIUM SERUM 4.6 mmol/L (3.5-5.1); TOTAL PROTEIN,SERUM 6.9 g/dL (6.4-8.3)
[2019-11-22 12:43] LABS: BILIRUBIN,TOTAL 0.4 mg/dL (0.0-1.0)
--- NOTE | 2019-11-22 13:55 | Internal Medicine Prog Note ---
Internal Medicine Subjective - Subjective Service Date: 11/22/19 Patient seen and examined:: without staff Patient is:: awake Per staff patient has:: no adverse event, no episodes of fall Internal Medicine Objective - Results Result Diagrams: 11/17/19 12:31 11/22/19 09:17 Recent Labs: Laboratory Last Values WBC 5.5 K/uL (4.8-10.8) 11/17/19 12:31 RBC 4.73 MIL/uL (4.2-6.2) 11/17/19 12:31 Hgb 12.8 g/dL (12.0-16.0) 11/17/19 12:31 Hct 41.5 % (36-48) 11/17/19 12:31 MCV 88 fL (79.0-98.0) 11/17/19 12:31 MCH 27 pg (27-31) 11/17/19 12:31 MCHC 31 % (32-36) L 11/17/19 12:31 RDW 17.1 % (9.0-15.0) H 11/17/19 12:31 Plt Count 162 K/uL (130-430) 11/17/19 12:31 MPV 11.3 fl (7.4-10.4) H 11/17/19 12:31 Neut % (Auto) 59.2 % (40-70) 11/17/19 12: Lymph % (Auto) 28.9 % (20.5-51.5) 11/17/19 12:31 [place] % (Auto) 10.0 % (1.7-9.3) H 11/17/19 12:31 Eos % (Auto) 1.5 % (0-4) 11/17/19 12:31 Baso % (Auto) 0.4 % (0.0-2.0) 11/17/19 12:31 Neut # (Auto) 3.2 K/uL (1.8-7.7) 11/17/19 12: Lymph # (Auto) 1.6 K/uL (1.0-5.5) 11/17/19 12:31 [place] # (Auto) 0.5 K/uL (0.0-1.0) 11/17/19 12:31 Eos # (Auto) 0.1 K/uL (0.0-0.4) 11/17/19 12:31 Baso # (Auto) 0.0 K/uL (0.0-0.2) 11/17/19 12:31 PT 9.9 SECS (9.5-12.5) 11/20/19 07:50 INR 0.98 (0.5-1.4) 11/20/19 07:50 Sodium 140 mmol/L (136-145) 11/22/19 09:17 Potassium 4.6 mmol/L (3.5-5.1) 11/22/19 09:17 Chloride 108 mmol/L (98-107) H 11/22/19 09:17 Carbon Dioxide 26 mmol/L (23-29) 11/22/19 09:17 Anion Gap 11 (5-15) 11/22/19 09:17 BUN 22 mg/dL (8-21) H 11/22/19 09:17 Creatinine 1.11 mg/dL (0.70-1.30) 11/22/19 09:17 Glucose 67 mg/dL (70-99) L 11/22/19 09:17 POC Glucose 96 MG/DL (70 - 105) 11/16/19 03:10 Hemoglobin A1c 5.6 % (4.8-5.6) 11/17/19 12:49 Calcium 9.9 mg/dL (8.4-10.2) 11/22/19 09:17 Total Bilirubin 0.4 mg/dL (0.0-1.0) 11/22/19 09:17 AST 40 U/L (10-37) H 11/22/19 09:17 ALT 27 U/L (12-78) 11/22/19 09:17 Alkaline Phosphatase 119 U/L (46-116) H 11/22/19 09:17 Total Protein 6.9 g/dL (6.4-8.3) 11/22/19 09:17 Albumin 3.1 g/dL (3.4-5.0) L 11/22/19 09:17 Triglycerides 130 mg/dL (30-150) 11/17/19 12:31 Cholesterol 158 mg/dL (<200) 11/17/19 12:31 LDL Cholesterol 101 mg/dL (0-129) 11/17/19 12:31 HDL Cholesterol 42 mg/dL (>55) L 11/17/19 12:31 - Physical Exam Vitals and I&O: Vital Signs Temp 98.3 F 11/22/19 05:52 Pulse 65 11/22/19 08:38 Resp 20 11/22/19 08:00 BP 136/70 11/22/19 08:38 Pulse Ox 94 11/22/19 05:52 Intake & Output 11/21/19 11/22/19 11/22/19 18:59 06:59 18:59 Intake Total 900 240 Balance 900 240 Intake: Oral 900 240 Other: # Voids 4 3 # Bowel Movements 1 0 Active Medications: Current Medications Acetaminophen (Tylenol) 650 mg PO Q4H PRN PRN Reason: Pain (Mild 1-3) Stop: 01/15/20 04:04 Acetaminophen (Tylenol Extra Strength) 1,000 mg PO Q6H PRN PRN Reason: Pain (Moderate 4-6) Stop: 01/15/20 04:04 Al Hydrox/Mg Hydrox/Simethicone (Maalox) 30 ml PO Q4HR PRN PRN Reason: GI DISTRESS Stop: 01/15/20 04:04 Atenolol (Tenormin) 25 mg PO DAILY [facility] Stop: 01/16/20 08:59 Last Admin: 11/22/19 08:38 Dose: 25 mg Atorvastatin Calcium (Lipitor) 40 mg PO DAILY [facility]; Protocol Stop: 01/16/20 08:59 Last Admin: 11/22/19 08:39 Dose: 40 mg Donepezil HCl (Aricept) 5 mg PO DAILY [facility] Stop: 01/21/20 08:59 Last Admin: 11/22/19 08:38 Dose: Not Given Levothyroxine Sodium (Synthroid) 0.05 mg PO QDAC [facility] Stop: 01/16/20 07:29 Last Admin: 11/22/19 06:32 Dose: 0.05 mg Lorazepam (Ativan) 0.5 mg PO Q4HR PRN; Protocol PRN Reason: Anxiety Stop: 12/16/19 04:04 Last Admin: 11/21/19 08:24 Dose: 0.5 mg Magnesium Hydroxide (Milk Of Magnesia) 30 ml PO HS PRN PRN Reason: Constipation Multivitamins/Vitamin C (Theragran) 1 tab PO DAILY [facility] Stop: 01/15/20 08:59 Last Admin: 11/22/19 08:41 Dose: 1 tab Quetiapine Fumarate (Seroquel) 25 mg PO BID [facility]; Protocol Stop: 01/19/20 16:59 Last Admin: 11/22/19 08:41 Dose: 25 mg Warfarin Sodium (Coumadin) 5 mg PO 1300 [facility]; Protocol Stop: 01/18/20 12:59 Last Admin: 11/22/19 13:48 Dose: 5 mg Zolpidem Tartrate (Ambien) 5 mg PO HS PRN PRN Reason: Insomnia Stop: 01/15/20 04:52 Last Admin: 11/21/19 21:00 Dose: 5 mg HEENT: NC/AT, PERRLA Neck: Supple, No JVD Lungs: CTAB Cardiovascular: RRR, Normal S1, Normal S2 Abdomen: soft Extremities: clear Neurological: no change Internal Medicine Assmt/Plan - Assessment Assessment: 1. Coagulapathy 2. CAD 3. HTN - Plan Plan: coumadin 5 mg po daily check INR, PT, PTT d/w r.n. reviewed complete medical records Nutritional Asmnt/Malnutr-PDOC - Dietary Evaluation Malnutrition Findings (Please click <Entered> for more info): Nutritional Asmnt/Malnutrition Start: 11/16/19 12: 33 Text: Status: Complete Freq: Protocol: Document 11/16/19 13:10 NENO (Rec: 11/16/19 13:14 NENO [id number]) Nutritional Asmnt/Malnutrition Patient General Information Nutritional Screening High Risk Diagnosis Acute Psychosis Pertinent Medical Hx/Surgical Hx HTN Subjective Information Consult: Poor nutrition, pt thin and underweight Pt is a 79-year-old female admitted on 11/15 d/t acute psychosis, agitation and striking out. Provided pt with an Ensure at 10am, visited pt at 12pm and she had drank the entire Ensure. Pt nodded she enjoyed it, pt did not use words to speak. Pt allowed me to do a limited nutrition focused physical examination as she was unable to completely sit up to view back areas. Adding Ensure Enlive TID at snack times. Nutrition Focused Physical Exam Head and Face (Severe Malnutrition) Orbital region: Slightly dark circles, somewhat hollow Buccal Region: Hollow, sunken cheeks [place] region: Deep hallowing, scooping Upper Body (Mild to Moderate Malnutrition) Upper Arm Region: Some depth to pinch, not ample Clavicle Bone Region: Clavicle shows with some protrusion Acromion Bone Region: Shoulder to arm joints squared, bones prominent Ribs/Midaxillary Line (Normal) Thoracic and Lumbar Region: Chest is full and round with ribs not evident Minimal ability to visualize the iliac crest Lower Extremities (Mild to Moderate Malnutrition) Anterior thigh region: Slight depressions Patellar Region: Kneecap is more prominent Posterior Calf Region: Less- developed bulb of muscle Anthropometrics HT: 57 WT: 104 LB (47.27 kg) IBW: 135 LB (61.36 kg), 77% IBW BMI: 16.31 (underweight) GI/ Skin Integrity GI: WNL, Non-tender, Flat, Soft BM: Not Noted I/O: 120/Not Noted Skin: WNL Wilbert: 19 Diet Order: Cardiac Estimated Energy Needs: ( Underweight, CBW) 6054-9652 kcals (30-35 kcals/ kg) 55-60g Pro (1.2-1.3 g/kg) 9567-1481 ml (30-35 ml/kg) Current Diet Order/ Nutrition Support Cardiac Patient / S.O Can't verbalize diet edu Pertinent Medications Maalox (PRN), MOM (PRN), Theragran Pertinent Labs 11/13: PT 16.2, INR 1.64, Na 146, Cl 112, TSH 5.337, Free T4 0.85 Nutritional Hx/Data Height 1.7 m Height (Calculated Centimeters) 170.2 Current Weight (lbs) 47.174 kg Weight (Calculated Kilograms) 47.2 Weight (Calculated Grams) 09579.6 [place] Body Weight 135 LB (61.36 kg) % [place] Body Weight 77 Body Mass Index (BMI) 16.2 Weight Status Underweight GI Symptoms Last BM Not Noted Skin Integrity/Comment: Skin: WNL Wilbert: 19 Estimated Nutritional Goals BEE in Kcals: Using Current wt Calories/Kcals/Kg 30-35 Kcals Calculated 6268-5545 Protein: Using Current wt Protein g/k.2-1.3 Protein Calculated 55-60 Fluid: ml 2467-1772 ml (30-35 ml/kg) Nutritional Problem 2. Problem Problem Malnutrition Etiology r/t inadequate energy and protein intake Signs/Symptoms: aeb mild to moderate muscle and fat wasting noted on exam with some clavicle, Acromion, and kneecap protrusion, and slight bulb of muscle in calf region. 1. Problem Problem Underweight Etiology r/t chronic energy underconsumption Signs/Symptoms: aeb BMI >18.5 (16.31). Malnutrition Alert Body Fat Depletion (Non-Severe) Mild Depletion Muscle Mass (Non-Severe) Mild Depletion Is there a minimum of two criteria Yes selected? Query Text:Check all the applicable criteria. A minimum of two criteria are recommended for diagnosis of either severe or non-severe malnutrition. Malnutrition Related to Morbid Obesity Malnutrition related to morbid obesity No Intervention/Recommendation Recommendations by RD Increase Calorie Intake Comments 1.Continue cardiac diet as tolerated. 2.Add Ensure Enlive TID ( completed). 3.Nurse to encourage PO intake . 4.Weekly weights. Expected Outcomes/Goals Expected Outcomes/Goals 1.PO intake to meet 75% of estimated nutritional needs. 2.Gradual weight gain (~1.0 LB /week) trending toward IBW preferred. 3.Monitor PO intake, wt, nutrition related labs, and skin integrity. 4.F/U as moderate risk in 3-5 days, 11/18-11/20.
--- NOTE | 2019-11-22 20:48 | Progress Notes ---
DATE: SUBJECTIVE: Chart reviewed and the patient interviewed. Also discussed the patient's condition with the staff and reviewed records and labs. The patient is still confused and is still forgetful. The patient also is having difficulty verbalizing her feelings and also she is selectively mute. She is interacting minimally with others. The patient also during my interview was pounding in her chest with the fist. Also, she was whispering and talking to herself. The patient also has minimum interaction with others. Otherwise, the patient is compliant with taking her medications, which are basically Seroquel. ASSESSMENT: The patient is still confused and forgetful and needs close monitoring. TREATMENT PLAN: We will continue Seroquel 25 mg twice a day and we will add Aricept 5 mg every day. Also, continue working on her irritability and her agitation and continue to follow up closely. JOB# [id number]
[2019-11-23] MEDS: Levothyroxine 0.05 Mg Tab PO SCH (06:44)
[2019-11-23] MEDS: Multivitamin Tab PO SCH (08:52)
--- NOTE | 2019-11-23 13:42 | Internal Medicine Prog Note ---
Internal Medicine Subjective - Subjective Service Date: 11/23/19 Patient seen and examined:: without staff Patient is:: awake Per staff patient has:: no adverse event, no episodes of fall Internal Medicine Objective - Results Result Diagrams: 11/17/19 12:31 11/22/19 09:17 Recent Labs: Laboratory Last Values WBC 5.5 K/uL (4.8-10.8) 11/17/19 12:31 RBC 4.73 MIL/uL (4.2-6.2) 11/17/19 12:31 Hgb 12.8 g/dL (12.0-16.0) 11/17/19 12:31 Hct 41.5 % (36-48) 11/17/19 12:31 MCV 88 fL (79.0-98.0) 11/17/19 12:31 MCH 27 pg (27-31) 11/17/19 12:31 MCHC 31 % (32-36) L 11/17/19 12:31 RDW 17.1 % (9.0-15.0) H 11/17/19 12:31 Plt Count 162 K/uL (130-430) 11/17/19 12:31 MPV 11.3 fl (7.4-10.4) H 11/17/19 12:31 Neut % (Auto) 59.2 % (40-70) 11/17/19 12: Lymph % (Auto) 28.9 % (20.5-51.5) 11/17/19 12:31 [place] % (Auto) 10.0 % (1.7-9.3) H 11/17/19 12:31 Eos % (Auto) 1.5 % (0-4) 11/17/19 12:31 Baso % (Auto) 0.4 % (0.0-2.0) 11/17/19 12:31 Neut # (Auto) 3.2 K/uL (1.8-7.7) 11/17/19 12: Lymph # (Auto) 1.6 K/uL (1.0-5.5) 11/17/19 12:31 [place] # (Auto) 0.5 K/uL (0.0-1.0) 11/17/19 12:31 Eos # (Auto) 0.1 K/uL (0.0-0.4) 11/17/19 12:31 Baso # (Auto) 0.0 K/uL (0.0-0.2) 11/17/19 12:31 PT 9.9 SECS (9.5-12.5) 11/20/19 07:50 INR 0.98 (0.5-1.4) 11/20/19 07:50 Sodium 140 mmol/L (136-145) 11/22/19 09:17 Potassium 4.6 mmol/L (3.5-5.1) 11/22/19 09:17 Chloride 108 mmol/L (98-107) H 11/22/19 09:17 Carbon Dioxide 26 mmol/L (23-29) 11/22/19 09:17 Anion Gap 11 (5-15) 11/22/19 09:17 BUN 22 mg/dL (8-21) H 11/22/19 09:17 Creatinine 1.11 mg/dL (0.70-1.30) 11/22/19 09:17 Glucose 67 mg/dL (70-99) L 11/22/19 09:17 POC Glucose 96 MG/DL (70 - 105) 11/16/19 03:10 Hemoglobin A1c 5.6 % (4.8-5.6) 11/17/19 12:49 Calcium 9.9 mg/dL (8.4-10.2) 11/22/19 09:17 Total Bilirubin 0.4 mg/dL (0.0-1.0) 11/22/19 09:17 AST 40 U/L (10-37) H 11/22/19 09:17 ALT 27 U/L (12-78) 11/22/19 09:17 Alkaline Phosphatase 119 U/L (46-116) H 11/22/19 09:17 Total Protein 6.9 g/dL (6.4-8.3) 11/22/19 09:17 Albumin 3.1 g/dL (3.4-5.0) L 11/22/19 09:17 Triglycerides 130 mg/dL (30-150) 11/17/19 12:31 Cholesterol 158 mg/dL (<200) 11/17/19 12:31 LDL Cholesterol 101 mg/dL (0-129) 11/17/19 12:31 HDL Cholesterol 42 mg/dL (>55) L 11/17/19 12:31 - Physical Exam Vitals and I&O: Vital Signs Temp 98.7 F 11/23/19 05:57 Pulse 55 11/23/19 08:59 Resp 20 11/23/19 08:00 BP 127/75 11/23/19 08:59 Pulse Ox 97 11/23/19 05:57 Intake & Output 11/22/19 11/23/19 11/23/19 18:59 06:59 18:59 Intake Total 1000 120 Balance 1000 120 Intake: Oral 1000 120 Other: # Voids 3 3 # Bowel Movements 1 Active Medications: Current Medications Acetaminophen (Tylenol) 650 mg PO Q4H PRN PRN Reason: Pain (Mild 1-3) Stop: 01/15/20 04:04 Acetaminophen (Tylenol Extra Strength) 1,000 mg PO Q6H PRN PRN Reason: Pain (Moderate 4-6) Stop: 01/15/20 04:04 Al Hydrox/Mg Hydrox/Simethicone (Maalox) 30 ml PO Q4HR PRN PRN Reason: GI DISTRESS Stop: 01/15/20 04:04 Atenolol (Tenormin) 25 mg PO DAILY [facility] Stop: 01/16/20 08:59 Last Admin: 11/23/19 08:59 Dose: Not Given Atorvastatin Calcium (Lipitor) 40 mg PO DAILY CORNELIO; Protocol Stop: 01/16/20 08:59 Last Admin: 11/23/19 08:52 Dose: 40 mg Donepezil HCl (Aricept) 5 mg PO DAILY [facility] Stop: 01/21/20 08:59 Last Admin: 11/23/19 08:54 Dose: 5 mg Levothyroxine Sodium (Synthroid) 0.05 mg PO QDAC [facility] Stop: 01/16/20 07:29 Last Admin: 11/23/19 06:44 Dose: 0.05 mg Lorazepam (Ativan) 0.5 mg PO Q4HR PRN; Protocol PRN Reason: Anxiety Stop: 12/16/19 04:04 Last Admin: 11/21/19 08:24 Dose: 0.5 mg Magnesium Hydroxide (Milk Of Magnesia) 30 ml PO HS PRN PRN Reason: Constipation Multivitamins/Vitamin C (Theragran) 1 tab PO DAILY [facility] Stop: 01/15/20 08:59 Last Admin: 11/23/19 08:52 Dose: 1 tab Quetiapine Fumarate (Seroquel) 25 mg PO BID [facility]; Protocol Stop: 01/19/20 16:59 Last Admin: 11/23/19 08:54 Dose: 25 mg Warfarin Sodium (Coumadin) 5 mg PO 1300 CORNELIO; Protocol Stop: 01/18/20 12:59 Last Admin: 11/23/19 13:07 Dose: 5 mg Zolpidem Tartrate (Ambien) 5 mg PO HS PRN PRN Reason: Insomnia Stop: 01/15/20 04:52 Last Admin: 11/21/19 21:00 Dose: 5 mg HEENT: NC/AT, PERRLA Neck: Supple, No JVD Lungs: CTAB Cardiovascular: RRR, Normal S1, Normal S2 Abdomen: soft Extremities: clear Neurological: no change Internal Medicine Assmt/Plan - Assessment Assessment: 1. Coagulapathy 2. CAD 3. HTN - Plan Plan: coumadin 5 mg po daily check INR, PT, PTT d/w r.n. reviewed complete medical records Nutritional Asmnt/Malnutr-PDOC - Dietary Evaluation Malnutrition Findings (Please click <Entered> for more info): Nutritional Asmnt/Malnutrition Start: 11/16/19 12: 33 Text: Status: Complete Freq: Protocol: Document 11/16/19 13:10 NENO (Rec: 11/16/19 13:14 NENO [id number]) Nutritional Asmnt/Malnutrition Patient General Information Nutritional Screening High Risk Diagnosis Acute Psychosis Pertinent Medical Hx/Surgical Hx HTN Subjective Information Consult: Poor nutrition, pt thin and underweight Pt is a 79-year-old female admitted on 11/15 d/t acute psychosis, agitation and striking out. Provided pt with an Ensure at 10am, visited pt at 12pm and she had drank the entire Ensure. Pt nodded she enjoyed it, pt did not use words to speak. Pt allowed me to do a limited nutrition focused physical examination as she was unable to completely sit up to view back areas. Adding Ensure Enlive TID at snack times. Nutrition Focused Physical Exam Head and Face (Severe Malnutrition) Orbital region: Slightly dark circles, somewhat hollow Buccal Region: Hollow, sunken cheeks [place] region: Deep hallowing, scooping Upper Body (Mild to Moderate Malnutrition) Upper Arm Region: Some depth to pinch, not ample Clavicle Bone Region: Clavicle shows with some protrusion Acromion Bone Region: Shoulder to arm joints squared, bones prominent Ribs/Midaxillary Line (Normal) Thoracic and Lumbar Region: Chest is full and round with ribs not evident Minimal ability to visualize the iliac crest Lower Extremities (Mild to Moderate Malnutrition) Anterior thigh region: Slight depressions Patellar Region: Kneecap is more prominent Posterior Calf Region: Less- developed bulb of muscle Anthropometrics HT: 57 WT: 104 LB (47.27 kg) IBW: 135 LB (61.36 kg), 77% IBW BMI: 16.31 (underweight) GI/ Skin Integrity GI: WNL, Non-tender, Flat, Soft BM: Not Noted I/O: 120/Not Noted Skin: WNL Wilbert: 19 Diet Order: Cardiac Estimated Energy Needs: ( Underweight, CBW) 7850-9360 kcals (30-35 kcals/ kg) 55-60g Pro (1.2-1.3 g/kg) 2229-7355 ml (30-35 ml/kg) Current Diet Order/ Nutrition Support Cardiac Patient / S.O Can't verbalize diet edu Pertinent Medications Maalox (PRN), MOM (PRN), Theragran Pertinent Labs 11/13: PT 16.2, INR 1.64, Na 146, Cl 112, TSH 5.337, Free T4 0.85 Nutritional Hx/Data Height 1.7 m Height (Calculated Centimeters) 170.2 Current Weight (lbs) 47.174 kg Weight (Calculated Kilograms) 47.2 Weight (Calculated Grams) 66702.6 [place] Body Weight 135 LB (61.36 kg) % [place] Body Weight 77 Body Mass Index (BMI) 16.2 Weight Status Underweight GI Symptoms Last BM Not Noted Skin Integrity/Comment: Skin: WNL Wilbert: 19 Estimated Nutritional Goals BEE in Kcals: Using Current wt Calories/Kcals/Kg 30-35 Kcals Calculated 7136-0675 Protein: Using Current wt Protein g/k.2-1.3 Protein Calculated 55-60 Fluid: ml 4214-8157 ml (30-35 ml/kg) Nutritional Problem 2. Problem Problem Malnutrition Etiology r/t inadequate energy and protein intake Signs/Symptoms: aeb mild to moderate muscle and fat wasting noted on exam with some clavicle, Acromion, and kneecap protrusion, and slight bulb of muscle in calf region. 1. Problem Problem Underweight Etiology r/t chronic energy underconsumption Signs/Symptoms: aeb BMI >18.5 (16.31). Malnutrition Alert Body Fat Depletion (Non-Severe) Mild Depletion Muscle Mass (Non-Severe) Mild Depletion Is there a minimum of two criteria Yes selected? Query Text:Check all the applicable criteria. A minimum of two criteria are recommended for diagnosis of either severe or non-severe malnutrition. Malnutrition Related to Morbid Obesity Malnutrition related to morbid obesity No Intervention/Recommendation Recommendations by RD Increase Calorie Intake Comments 1.Continue cardiac diet as tolerated. 2.Add Ensure Enlive TID ( completed). 3.Nurse to encourage PO intake . 4.Weekly weights. Expected Outcomes/Goals Expected Outcomes/Goals 1.PO intake to meet 75% of estimated nutritional needs. 2.Gradual weight gain (~1.0 LB /week) trending toward IBW preferred. 3.Monitor PO intake, wt, nutrition related labs, and skin integrity. 4.F/U as moderate risk in 3-5 days, 11/18-11/20.
[2019-11-23 13:48] LABS: PROTHROMBIN TIME (TEST) 11.2 SECS (9.5-12.5)
[2019-11-24] MEDS: Levothyroxine 0.05 Mg Tab PO SCH (06:47)
[2019-11-24] MEDS: Multivitamin Tab PO SCH (09:07)
[2019-11-24 14:56] LABS: PROTHROMBIN TIME (TEST) 11.7 SECS (9.5-12.5)
[2019-11-24 14:59] LABS: INR 1.16 (0.5-1.4)
--- NOTE | 2019-11-24 19:13 | Progress Notes ---
DATE: 11/24/2019 The patient high to check Case was discussed with staff of the patient, reviewed records, also left a message to her daughter, who left a message for Dr. Hinkle to call her; however, she is not available asked her to call back. We talked to the staff, going to page me or tell them the information she want us to now and I described to her in my message how she is doing. The patient continues to isolate herself, continues to be confused, forgetful, unable to express herself. Continues to have episodes of pounding on her chest. No side effects with the medication, no sedation, no nausea, no extrapyramidal symptoms. I will be increasing her Seroquel to 37.5 twice a day. No side effects with the medication, no sedation, no nausea, no extrapyramidal symptoms. We will continue outpatient group therapy, milieu therapy, adjust medication as needed. JOB# [id number]
--- NOTE | 2019-11-24 20:21 | Progress Notes ---
DATE: 11/23/2019 SUBJECTIVE: The patient is still confused and is still easily agitated. The patient also is still pounding on her chest with her fist when I am trying to talk to her and she has great difficulty expressing herself or her feelings. The patient also still seems to be responding to stimuli. Otherwise, the patient continues to comply with taking her medications with no side effects of medications. ASSESSMENT: The patient is still aggressive and agitated. TREATMENT PLAN: Continue monitoring her behavior and her condition closely. Also, continue Seroquel as well as Aricept. Also, continue to work on her poor impulse control and anger. JOB# [id number]
[2019-11-25] MEDS: Levothyroxine 0.05 Mg Tab PO SCH (06:43)
[2019-11-25] MEDS: Multivitamin Tab PO SCH (08:17)
--- NOTE | 2019-11-25 13:17 | Progress Notes ---
DATE: 11/25/2019 SUBJECTIVE: The patient is currently in the hospital. The patient is minimally interactive, mostly keeps to self, not particularly agitated right now, sleeping, arousable, does not really want to engage with me, coming in from [facility], agitation, irritability, and nonverbal. The patient has a daughter who is pretty involved. Possible history of dementia. The patient was for a long time living in [facility], otherwise mostly friendly on exam. Apparently was aggressive at home. She was apparently hitting herself. PLAN: We will continue to cover for Dr. Hinkle. It is unclear where the patient will go when she leaves from here. The patient was apparently hitting her chest with her fist multiple times, hard to assess her because she is nonverbal. We will continue to monitor. Medications were reviewed. Labs reviewed. Vitals were reviewed. JOB# [id number]
[2019-11-25 14:36] LABS: INR 1.01 (0.5-1.4)
[2019-11-26] MEDS: Levothyroxine 0.05 Mg Tab PO SCH (06:46)
[2019-11-26] MEDS: Multivitamin Tab PO SCH (08:29)
--- NOTE | 2019-11-26 09:43 | Progress Notes ---
DATE: 11/26/2019 SUBJECTIVE: This is an 79-year-old female, nonverbal, calm right now. Apparently, she did have periods of agitation, poor impulse control, acting out behaviors at home, possible history of dementia. I saw her when she was at a longterm facility in [place]. Apparently, now at home. Calm right now, resting comfortably and no outbursts or event. It is unclear why she was so triggered. Slept about 7 hours, withdrawn, mostly keeps to self. No agitation or escalation of behaviors, but concerns she may get triggered and act out, strike out. It is unclear where she is going to go when she leaves the hospital. Per elementary school social worker, possible longterm facility placement. PLAN: We will continue inpatient monitoring, ongoing concerns about impulse control. We will continue to monitor closely. Tolerant of Seroquel thus far. JOB# [id number]
[2019-11-27] MEDS: Levothyroxine 0.05 Mg Tab PO SCH (06:34)
[2019-11-27] MEDS: Multivitamin Tab PO SCH (08:57)
--- NOTE | 2019-11-27 14:37 | Internal Medicine Prog Note ---
Internal Medicine Subjective - Subjective Service Date: 11/27/19 Patient seen and examined:: without staff Patient is:: awake Per staff patient has:: no adverse event, no episodes of fall Internal Medicine Objective - Results Result Diagrams: 11/17/19 12:31 11/22/19 09:17 Recent Labs: Laboratory Last Values WBC 5.5 K/uL (4.8-10.8) 11/17/19 12:31 RBC 4.73 MIL/uL (4.2-6.2) 11/17/19 12:31 Hgb 12.8 g/dL (12.0-16.0) 11/17/19 12:31 Hct 41.5 % (36-48) 11/17/19 12:31 MCV 88 fL (79.0-98.0) 11/17/19 12:31 MCH 27 pg (27-31) 11/17/19 12:31 MCHC 31 % (32-36) L 11/17/19 12:31 RDW 17.1 % (9.0-15.0) H 11/17/19 12:31 Plt Count 162 K/uL (130-430) 11/17/19 12:31 MPV 11.3 fl (7.4-10.4) H 11/17/19 12:31 Neut % (Auto) 59.2 % (40-70) 11/17/19 12: Lymph % (Auto) 28.9 % (20.5-51.5) 11/17/19 12:31 [place] % (Auto) 10.0 % (1.7-9.3) H 11/17/19 12:31 Eos % (Auto) 1.5 % (0-4) 11/17/19 12:31 Baso % (Auto) 0.4 % (0.0-2.0) 11/17/19 12:31 Neut # (Auto) 3.2 K/uL (1.8-7.7) 11/17/19 12: Lymph # (Auto) 1.6 K/uL (1.0-5.5) 11/17/19 12:31 [place] # (Auto) 0.5 K/uL (0.0-1.0) 11/17/19 12:31 Eos # (Auto) 0.1 K/uL (0.0-0.4) 11/17/19 12:31 Baso # (Auto) 0.0 K/uL (0.0-0.2) 11/17/19 12:31 PT 11.7 SECS (9.5-12.5) 11/24/19 12:28 INR 1.16 (0.5-1.4) 11/24/19 12:28 Sodium 140 mmol/L (136-145) 11/22/19 09:17 Potassium 4.6 mmol/L (3.5-5.1) 11/22/19 09:17 Chloride 108 mmol/L (98-107) H 11/22/19 09:17 Carbon Dioxide 26 mmol/L (23-29) 11/22/19 09:17 Anion Gap 11 (5-15) 11/22/19 09:17 BUN 22 mg/dL (8-21) H 11/22/19 09:17 Creatinine 1.11 mg/dL (0.70-1.30) 11/22/19 09:17 Glucose 67 mg/dL (70-99) L 11/22/19 09:17 POC Glucose 96 MG/DL (70 - 105) 11/16/19 03:10 Hemoglobin A1c 5.6 % (4.8-5.6) 11/17/19 12:49 Calcium 9.9 mg/dL (8.4-10.2) 11/22/19 09:17 Total Bilirubin 0.4 mg/dL (0.0-1.0) 11/22/19 09:17 AST 40 U/L (10-37) H 11/22/19 09:17 ALT 27 U/L (12-78) 11/22/19 09:17 Alkaline Phosphatase 119 U/L (46-116) H 11/22/19 09:17 Total Protein 6.9 g/dL (6.4-8.3) 11/22/19 09:17 Albumin 3.1 g/dL (3.4-5.0) L 11/22/19 09:17 Triglycerides 130 mg/dL (30-150) 11/17/19 12:31 Cholesterol 158 mg/dL (<200) 11/17/19 12:31 LDL Cholesterol 101 mg/dL (0-129) 11/17/19 12:31 HDL Cholesterol 42 mg/dL (>55) L 11/17/19 12:31 - Physical Exam Vitals and I&O: Vital Signs Temp 97.2 F 11/27/19 14:31 Pulse 50 11/27/19 14:31 Resp 18 11/27/19 14:31 BP 144/59 11/27/19 14:31 Pulse Ox 99 11/27/19 14:31 Intake & Output 11/26/19 11/27/19 11/27/19 18:59 06:59 18:59 Intake Total 800 720 Balance 800 720 Intake: Oral 800 720 Other: # Voids 4 1 # Bowel Movements 0 Active Medications: Current Medications Acetaminophen (Tylenol) 650 mg PO Q4H PRN PRN Reason: Pain (Mild 1-3) Stop: 01/15/20 04:04 Last Admin: 11/26/19 21:18 Dose: 650 mg Acetaminophen (Tylenol Extra Strength) 1,000 mg PO Q6H PRN PRN Reason: Pain (Moderate 4-6) Stop: 01/15/20 04:04 Al Hydrox/Mg Hydrox/Simethicone (Maalox) 30 ml PO Q4HR PRN PRN Reason: GI DISTRESS Stop: 01/15/20 04:04 Atenolol (Tenormin) 25 mg PO DAILY [facility] Stop: 01/16/20 08:59 Last Admin: 11/27/19 08:58 Dose: 25 mg Atorvastatin Calcium (Lipitor) 40 mg PO DAILY CORNELIO; Protocol Stop: 01/16/20 08:59 Last Admin: 11/27/19 08:57 Dose: 40 mg Donepezil HCl (Aricept) 5 mg PO DAILY [facility] Stop: 01/21/20 08:59 Last Admin: 11/27/19 08:57 Dose: 5 mg Levothyroxine Sodium (Synthroid) 0.05 mg PO QDAC [facility]IO Stop: 01/16/20 07:29 Last Admin: 11/27/19 06:34 Dose: 0.05 mg Lorazepam (Ativan) 0.5 mg PO Q4HR PRN; Protocol PRN Reason: Anxiety Stop: 12/16/19 04:04 Last Admin: 11/21/19 08:24 Dose: 0.5 mg Magnesium Hydroxide (Milk Of Magnesia) 30 ml PO HS PRN PRN Reason: Constipation Multivitamins/Vitamin C (Theragran) 1 tab PO DAILY [facility]IO Stop: 01/15/20 08:59 Last Admin: 11/27/19 08:57 Dose: 1 tab Quetiapine Fumarate (Seroquel) 37.5 mg PO BID [facility]; Protocol Stop: 01/23/20 16:59 Last Admin: 11/27/19 08:56 Dose: 37.5 mg Warfarin Sodium (Coumadin) 5 mg PO 1300 CORNELIO; Protocol Stop: 01/26/20 12:59 Zolpidem Tartrate (Ambien) 5 mg PO HS PRN PRN Reason: Insomnia Stop: 01/15/20 04:52 Last Admin: 11/26/19 21:18 Dose: 5 mg HEENT: NC/AT, PERRLA Neck: Supple, No JVD Lungs: CTAB Cardiovascular: RRR, Normal S1, Normal S2 Abdomen: soft Extremities: clear Neurological: no change Internal Medicine Assmt/Plan - Assessment Assessment: 1. Coagulapathy 2. CAD 3. HTN - Plan Plan: coumadin 5 mg po daily check INR today d/w r.n. reviewed complete medical records Nutritional Asmnt/Malnutr-PDOC - Dietary Evaluation Malnutrition Findings (Please click <Entered> for more info): Nutritional Asmnt/Malnutrition Start: 11/16/19 12: 33 Text: Status: Complete Freq: Protocol: Document 11/16/19 13:10 NENO (Rec: 11/16/19 13:14 NENO [id number]) Nutritional Asmnt/Malnutrition Patient General Information Nutritional Screening High Risk Diagnosis Acute Psychosis Pertinent Medical Hx/Surgical Hx HTN Subjective Information Consult: Poor nutrition, pt thin and underweight Pt is a 79-year-old female admitted on 11/15 d/t acute psychosis, agitation and striking out. Provided pt with an Ensure at 10am, visited pt at 12pm and she had drank the entire Ensure. Pt nodded she enjoyed it, pt did not use words to speak. Pt allowed me to do a limited nutrition focused physical examination as she was unable to completely sit up to view back areas. Adding Ensure Enlive TID at snack times. Nutrition Focused Physical Exam Head and Face (Severe Malnutrition) Orbital region: Slightly dark circles, somewhat hollow Buccal Region: Hollow, sunken cheeks [place] region: Deep hallowing, scooping Upper Body (Mild to Moderate Malnutrition) Upper Arm Region: Some depth to pinch, not ample Clavicle Bone Region: Clavicle shows with some protrusion [place] Bone Region: Shoulder to arm joints squared, bones prominent Ribs/Midaxillary Line (Normal) Thoracic and Lumbar Region: Chest is full and round with ribs not evident Minimal ability to visualize the iliac crest Lower Extremities (Mild to Moderate Malnutrition) Anterior thigh region: Slight depressions Patellar Region: Kneecap is more prominent Posterior Calf Region: Less- developed bulb of muscle Anthropometrics HT: 57 WT: 104 LB (47.27 kg) IBW: 135 LB (61.36 kg), 77% IBW BMI: 16.31 (underweight) GI/ Skin Integrity GI: WNL, Non-tender, Flat, Soft BM: Not Noted I/O: 120/Not Noted Skin: WNL Wilbert: 19 Diet Order: Cardiac Estimated Energy Needs: ( Underweight, CBW) 8374-6035 kcals (30-35 kcals/ kg) 55-60g Pro (1.2-1.3 g/kg) 0278-1243 ml (30-35 ml/kg) Current Diet Order/ Nutrition Support Cardiac Patient / S.O Can't verbalize diet edu Pertinent Medications Maalox (PRN), MOM (PRN), Theragran Pertinent Labs 11/13: PT 16.2, INR 1.64, Na 146, Cl 112, TSH 5.337, Free T4 0.85 Nutritional Hx/Data Height 1.7 m Height (Calculated Centimeters) 170.2 Current Weight (lbs) 47.174 kg Weight (Calculated Kilograms) 47.2 Weight (Calculated Grams) 55348.6 [place] Body Weight 135 LB (61.36 kg) % [place] Body Weight 77 Body Mass Index (BMI) 16.2 Weight Status Underweight GI Symptoms Last BM Not Noted Skin Integrity/Comment: Skin: WNL Wilbert: 19 Estimated Nutritional Goals BEE in Kcals: Using Current wt Calories/Kcals/Kg 30-35 Kcals Calculated 1125-0073 Protein: Using Current wt Protein g/k.2-1.3 Protein Calculated 55-60 Fluid: ml 5165-6482 ml (30-35 ml/kg) Nutritional Problem 2. Problem Problem Malnutrition Etiology r/t inadequate energy and protein intake Signs/Symptoms: aeb mild to moderate muscle and fat wasting noted on exam with some clavicle, Acromion, and kneecap protrusion, and slight bulb of muscle in calf region. 1. Problem Problem Underweight Etiology r/t chronic energy underconsumption Signs/Symptoms: aeb BMI >18.5 (16.31). Malnutrition Alert Body Fat Depletion (Non-Severe) Mild Depletion Muscle Mass (Non-Severe) Mild Depletion Is there a minimum of two criteria Yes selected? Query Text:Check all the applicable criteria. A minimum of two criteria are recommended for diagnosis of either severe or non-severe malnutrition. Malnutrition Related to Morbid Obesity Malnutrition related to morbid obesity No Intervention/Recommendation Recommendations by RD Increase Calorie Intake Comments 1.Continue cardiac diet as tolerated. 2.Add Ensure Enlive TID ( completed). 3.Nurse to encourage PO intake . 4.Weekly weights. Expected Outcomes/Goals Expected Outcomes/Goals 1.PO intake to meet 75% of estimated nutritional needs. 2.Gradual weight gain (~1.0 LB /week) trending toward IBW preferred. 3.Monitor PO intake, wt, nutrition related labs, and skin integrity. 4.F/U as moderate risk in 3-5 days, 11/18-11/20.
--- NOTE | 2019-11-27 23:46 | Progress Notes ---
DATE: 11/27/2019 Case was discussed with staff of the patient, reviewed records, also tried to call her daughter twice on Wednesday morning, Wednesday afternoon, she called me back. I tried to call this morning before I saw the patient, however, no answer. The patient continues to have episodes of agitation and irritability. The patient is unable to express herself. However, today, she was smiling. The patient with a possible history of dementia. She was at [facility] in [place], now she is living at home. No anger outbursts. She is sleeping better, keep to herself, compliant with the medication with no side effects. The patient also will be going to a [facility] facility. She is compliant with the medication, no side effects, no sedation, no nausea, no extrapyramidal symptoms. I did increase her Seroquel to 37.5 mg twice a day on Fridays, seems to be tolerating well. Also, she is on Aricept 5 mg at bedtime. We will continue outpatient group therapy, milieu therapy, adjust medication as needed. JOB# [id number]
[2019-11-28] MEDS: Levothyroxine 0.05 Mg Tab PO SCH (06:36)
[2019-11-28] MEDS: Multivitamin Tab PO SCH (08:21)
--- NOTE | 2019-11-28 13:28 | Internal Medicine Prog Note ---
Internal Medicine Subjective - Subjective Service Date: 11/28/19 Patient seen and examined:: without staff Patient is:: awake Per staff patient has:: no adverse event, no episodes of fall Internal Medicine Objective - Results Result Diagrams: 11/17/19 12:31 11/22/19 09:17 Recent Labs: Laboratory Last Values WBC 5.5 K/uL (4.8-10.8) 11/17/19 12:31 RBC 4.73 MIL/uL (4.2-6.2) 11/17/19 12:31 Hgb 12.8 g/dL (12.0-16.0) 11/17/19 12:31 Hct 41.5 % (36-48) 11/17/19 12:31 MCV 88 fL (79.0-98.0) 11/17/19 12:31 MCH 27 pg (27-31) 11/17/19 12:31 MCHC 31 % (32-36) L 11/17/19 12:31 RDW 17.1 % (9.0-15.0) H 11/17/19 12:31 Plt Count 162 K/uL (130-430) 11/17/19 12:31 MPV 11.3 fl (7.4-10.4) H 11/17/19 12:31 Neut % (Auto) 59.2 % (40-70) 11/17/19 12:31 Lymph % (Auto) 28.9 % (20.5-51.5) 11/17/19 12:31 [place] % (Auto) 10.0 % (1.7-9.3) H 11/17/19 12:31 Eos % (Auto) 1.5 % (0-4) 11/17/19 12:31 Baso % (Auto) 0.4 % (0.0-2.0) 11/17/19 12:31 Neut # (Auto) 3.2 K/uL (1.8-7.7) 11/17/19 12: Lymph # (Auto) 1.6 K/uL (1.0-5.5) 11/17/19 12:31 [place] # (Auto) 0.5 K/uL (0.0-1.0) 11/17/19 12:31 Eos # (Auto) 0.1 K/uL (0.0-0.4) 11/17/19 12:31 Baso # (Auto) 0.0 K/uL (0.0-0.2) 11/17/19 12:31 PT 11.7 SECS (9.5-12.5) 11/24/19 12:28 INR 1.16 (0.5-1.4) 11/24/19 12:28 Sodium 140 mmol/L (136-145) 11/22/19 09:17 Potassium 4.6 mmol/L (3.5-5.1) 11/22/19 09:17 Chloride 108 mmol/L (98-107) H 11/22/19 09:17 Carbon Dioxide 26 mmol/L (23-29) 11/22/19 09:17 Anion Gap 11 (5-15) 11/22/19 09:17 BUN 22 mg/dL (8-21) H 11/22/19 09:17 Creatinine 1.11 mg/dL (0.70-1.30) 11/22/19 09:17 Glucose 67 mg/dL (70-99) L 11/22/19 09:17 POC Glucose 96 MG/DL (70 - 105) 11/16/19 03:10 Hemoglobin A1c 5.6 % (4.8-5.6) 11/17/19 12:49 Calcium 9.9 mg/dL (8.4-10.2) 11/22/19 09:17 Total Bilirubin 0.4 mg/dL (0.0-1.0) 11/22/19 09:17 AST 40 U/L (10-37) H 11/22/19 09:17 ALT 27 U/L (12-78) 11/22/19 09:17 Alkaline Phosphatase 119 U/L (46-116) H 11/22/19 09:17 Total Protein 6.9 g/dL (6.4-8.3) 11/22/19 09:17 Albumin 3.1 g/dL (3.4-5.0) L 11/22/19 09:17 Triglycerides 130 mg/dL (30-150) 11/17/19 12:31 Cholesterol 158 mg/dL (<200) 11/17/19 12:31 LDL Cholesterol 101 mg/dL (0-129) 11/17/19 12:31 HDL Cholesterol 42 mg/dL (>55) L 11/17/19 12:31 - Physical Exam Vitals and I&O: Vital Signs Temp 97.7 F 11/28/19 06:09 Pulse 63 11/28/19 11:40 Resp 20 11/28/19 08:00 BP 178/77 11/28/19 11:40 Pulse Ox 97 11/28/19 06:09 Intake & Output 11/27/19 11/28/19 11/28/19 18:59 06:59 18:59 Intake Total 120 Balance 120 Intake: Oral 120 Other: # Voids 3 # Bowel Movements 0 Active Medications: Current Medications Acetaminophen (Tylenol) 650 mg PO Q4H PRN PRN Reason: Pain (Mild 1-3) Stop: 01/15/20 04:04 Last Admin: 11/26/19 21:18 Dose: 650 mg Acetaminophen (Tylenol Extra Strength) 1,000 mg PO Q6H PRN PRN Reason: Pain (Moderate 4-6) Stop: 01/15/20 04:04 Al Hydrox/Mg Hydrox/Simethicone (Maalox) 30 ml PO Q4HR PRN PRN Reason: GI DISTRESS Stop: 01/15/20 04:04 Atenolol (Tenormin) 25 mg PO DAILY [facility]IO Stop: 01/16/20 08:59 Last Admin: 11/28/19 11:40 Dose: 25 mg Atorvastatin Calcium (Lipitor) 40 mg PO DAILY [facility]; Protocol Stop: 01/16/20 08:59 Last Admin: 11/28/19 08:21 Dose: 40 mg Donepezil HCl (Aricept) 5 mg PO DAILY [facility] Stop: 01/21/20 08:59 Last Admin: 11/28/19 08:20 Dose: 5 mg Levothyroxine Sodium (Synthroid) 0.05 mg PO QDAC [facility] Stop: 01/16/20 07:29 Last Admin: 11/28/19 06:36 Dose: 0.05 mg Lorazepam (Ativan) 0.5 mg PO Q4HR PRN; Protocol PRN Reason: Anxiety Stop: 12/16/19 04:04 Last Admin: 11/21/19 08:24 Dose: 0.5 mg Magnesium Hydroxide (Milk Of Magnesia) 30 ml PO HS PRN PRN Reason: Constipation Multivitamins/Vitamin C (Theragran) 1 tab PO DAILY [facility] Stop: 01/15/20 08:59 Last Admin: 11/28/19 08:21 Dose: 1 tab Quetiapine Fumarate (Seroquel) 50 mg PO BID [facility]; Protocol Stop: 01/27/20 16:59 Warfarin Sodium (Coumadin) 5 mg PO 1300 [facility]; Protocol Stop: 01/26/20 12:59 Last Admin: 11/28/19 12:32 Dose: 5 mg Zolpidem Tartrate (Ambien) 5 mg PO HS PRN PRN Reason: Insomnia Stop: 01/15/20 04:52 Last Admin: 11/27/19 21:07 Dose: 5 mg HEENT: NC/AT, PERRLA Neck: Supple, No JVD Lungs: CTAB Cardiovascular: RRR, Normal S1, Normal S2 Abdomen: soft Extremities: clear Neurological: no change Internal Medicine Assmt/Plan - Assessment Assessment: 1. Coagulapathy 2. CAD 3. HTN - Plan Plan: coumadin 5 mg po daily still waiting for inr d/w r.n. reviewed complete medical records Nutritional Asmnt/Malnutr-PDOC - Dietary Evaluation Malnutrition Findings (Please click <Entered> for more info): Nutritional Asmnt/Malnutrition Start: 11/16/19 12: 33 Text: Status: Complete Freq: Protocol: Document 11/16/19 13:10 NENO (Rec: 11/16/19 13:14 NENO [id number]) Nutritional Asmnt/Malnutrition Patient General Information Nutritional Screening High Risk Diagnosis Acute Psychosis Pertinent Medical Hx/Surgical Hx HTN Subjective Information Consult: Poor nutrition, pt thin and underweight Pt is a 79-year-old female admitted on 11/15 d/t acute psychosis, agitation and striking out. Provided pt with an Ensure at 10am, visited pt at 12pm and she had drank the entire Ensure. Pt nodded she enjoyed it, pt did not use words to speak. Pt allowed me to do a limited nutrition focused physical examination as she was unable to completely sit up to view back areas. Adding Ensure Enlive TID at snack times. Nutrition Focused Physical Exam Head and Face (Severe Malnutrition) Orbital region: Slightly dark circles, somewhat hollow Buccal Region: Hollow, sunken cheeks [place] region: Deep hallowing, scooping Upper Body (Mild to Moderate Malnutrition) Upper Arm Region: Some depth to pinch, not ample Clavicle Bone Region: Clavicle shows with some protrusion Acromion Bone Region: Shoulder to arm joints squared, bones prominent Ribs/Midaxillary Line (Normal) Thoracic and Lumbar Region: Chest is full and round with ribs not evident Minimal ability to visualize the iliac crest Lower Extremities (Mild to Moderate Malnutrition) Anterior thigh region: Slight depressions Patellar Region: Kneecap is more prominent Posterior Calf Region: Less- developed bulb of muscle Anthropometrics HT: 57 WT: 104 LB (47.27 kg) IBW: 135 LB (61.36 kg), 77% IBW BMI: 16.31 (underweight) GI/ Skin Integrity GI: WNL, Non-tender, Flat, Soft BM: Not Noted I/O: 120/Not Noted Skin: WNL Wilbert: 19 Diet Order: Cardiac Estimated Energy Needs: ( Underweight, CBW) 9914-4531 kcals (30-35 kcals/ kg) 55-60g Pro (1.2-1.3 g/kg) 5480-6564 ml (30-35 ml/kg) Current Diet Order/ Nutrition Support Cardiac Patient / S.O Can't verbalize diet edu Pertinent Medications Maalox (PRN), MOM (PRN), Theragran Pertinent Labs 11/13: PT 16.2, INR 1.64, Na 146, Cl 112, TSH 5.337, Free T4 0.85 Nutritional Hx/Data Height 1.7 m Height (Calculated Centimeters) 170.2 Current Weight (lbs) 47.174 kg Weight (Calculated Kilograms) 47.2 Weight (Calculated Grams) 36113.6 [place] Body Weight 135 LB (61.36 kg) % [place] Body Weight 77 Body Mass Index (BMI) 16.2 Weight Status Underweight GI Symptoms Last BM Not Noted Skin Integrity/Comment: Skin: WNL Wilbert: 19 Estimated Nutritional Goals BEE in Kcals: Using Current wt Calories/Kcals/Kg 30-35 Kcals Calculated 3973-5064 Protein: Using Current wt Protein g/k.2-1.3 Protein Calculated 55-60 Fluid: ml 0715-2864 ml (30-35 ml/kg) Nutritional Problem 2. Problem Problem Malnutrition Etiology r/t inadequate energy and protein intake Signs/Symptoms: aeb mild to moderate muscle and fat wasting noted on exam with some clavicle, Acromion, and kneecap protrusion, and slight bulb of muscle in calf region. 1. Problem Problem Underweight Etiology r/t chronic energy underconsumption Signs/Symptoms: aeb BMI >18.5 (16.31). Malnutrition Alert Body Fat Depletion (Non-Severe) Mild Depletion Muscle Mass (Non-Severe) Mild Depletion Is there a minimum of two criteria Yes selected? Query Text:Check all the applicable criteria. A minimum of two criteria are recommended for diagnosis of either severe or non-severe malnutrition. Malnutrition Related to Morbid Obesity Malnutrition related to morbid obesity No Intervention/Recommendation Recommendations by RD Increase Calorie Intake Comments 1.Continue cardiac diet as tolerated. 2.Add Ensure Enlive TID ( completed). 3.Nurse to encourage PO intake . 4.Weekly weights. Expected Outcomes/Goals Expected Outcomes/Goals 1.PO intake to meet 75% of estimated nutritional needs. 2.Gradual weight gain (~1.0 LB /week) trending toward IBW preferred. 3.Monitor PO intake, wt, nutrition related labs, and skin integrity. 4.F/U as moderate risk in 3-5 days, 11/18-11/20.
--- NOTE | 2019-11-28 16:49 | Progress Notes ---
DATE: 11/28/2019 SUBJECTIVE: Case was discussed with staff of the patient, reviewed records. The patient was crying today; however, unable to express herself well, , she was smiling. She is unable to express herself very well and she is sleeping well, eating well. I will be increasing her Seroquel to 50 mg twice a day. No side effects with the medication, no sedation, no nausea, no extrapyramidal symptoms. We will continue outpatient group therapy, milieu therapy, and adjust her medication as needed. discussed care with her daughter JOB# [id number] [email or web address]
[2019-11-28 23:47] LABS: PROTHROMBIN TIME (TEST) 13.2 SECS (9.5-12.5)
[2019-11-29] MEDS: Levothyroxine 0.05 Mg Tab PO SCH (06:46)
[2019-11-29] MEDS: Multivitamin Tab PO SCH (10:00)
--- NOTE | 2019-11-29 13:59 | Internal Medicine Prog Note ---
Internal Medicine Subjective - Subjective Service Date: 11/29/19 Patient seen and examined:: without staff Patient is:: awake Per staff patient has:: no adverse event, no episodes of fall Internal Medicine Objective - Results Result Diagrams: 11/17/19 12:31 11/22/19 09:17 Recent Labs: Laboratory Last Values WBC 5.5 K/uL (4.8-10.8) 11/17/19 12:31 RBC 4.73 MIL/uL (4.2-6.2) 11/17/19 12:31 Hgb 12.8 g/dL (12.0-16.0) 11/17/19 12:31 Hct 41.5 % (36-48) 11/17/19 12:31 MCV 88 fL (79.0-98.0) 11/17/19 12:31 MCH 27 pg (27-31) 11/17/19 12:31 MCHC 31 % (32-36) L 11/17/19 12:31 RDW 17.1 % (9.0-15.0) H 11/17/19 12:31 Plt Count 162 K/uL (130-430) 11/17/19 12:31 MPV 11.3 fl (7.4-10.4) H 11/17/19 12:31 Neut % (Auto) 59.2 % (40-70) 11/17/19 12: Lymph % (Auto) 28.9 % (20.5-51.5) 11/17/19 12:31 [place] % (Auto) 10.0 % (1.7-9.3) H 11/17/19 12:31 Eos % (Auto) 1.5 % (0-4) 11/17/19 12:31 Baso % (Auto) 0.4 % (0.0-2.0) 11/17/19 12:31 Neut # (Auto) 3.2 K/uL (1.8-7.7) 11/17/19 12: Lymph # (Auto) 1.6 K/uL (1.0-5.5) 11/17/19 12:31 [place] # (Auto) 0.5 K/uL (0.0-1.0) 11/17/19 12:31 Eos # (Auto) 0.1 K/uL (0.0-0.4) 11/17/19 12:31 Baso # (Auto) 0.0 K/uL (0.0-0.2) 11/17/19 12:31 PT 13.2 SECS (9.5-12.5) H 11/28/19 13:20 INR 1.16 (0.5-1.4) 11/24/19 12:28 Sodium 140 mmol/L (136-145) 11/22/19 09:17 Potassium 4.6 mmol/L (3.5-5.1) 11/22/19 09:17 Chloride 108 mmol/L (98-107) H 11/22/19 09:17 Carbon Dioxide 26 mmol/L (23-29) 11/22/19 09:17 Anion Gap 11 (5-15) 11/22/19 09:17 BUN 22 mg/dL (8-21) H 11/22/19 09:17 Creatinine 1.11 mg/dL (0.70-1.30) 11/22/19 09:17 Glucose 67 mg/dL (70-99) L 11/22/19 09:17 POC Glucose 96 MG/DL (70 - 105) 11/16/19 03:10 Hemoglobin A1c 5.6 % (4.8-5.6) 11/17/19 12:49 Calcium 9.9 mg/dL (8.4-10.2) 11/22/19 09:17 Total Bilirubin 0.4 mg/dL (0.0-1.0) 11/22/19 09:17 AST 40 U/L (10-37) H 11/22/19 09:17 ALT 27 U/L (12-78) 11/22/19 09:17 Alkaline Phosphatase 119 U/L (46-116) H 11/22/19 09:17 Total Protein 6.9 g/dL (6.4-8.3) 11/22/19 09:17 Albumin 3.1 g/dL (3.4-5.0) L 11/22/19 09:17 Triglycerides 130 mg/dL (30-150) 11/17/19 12:31 Cholesterol 158 mg/dL (<200) 11/17/19 12:31 LDL Cholesterol 101 mg/dL (0-129) 11/17/19 12:31 HDL Cholesterol 42 mg/dL (>55) L 11/17/19 12:31 - Physical Exam Vitals and I&O: Vital Signs Temp 98.2 F 11/29/19 06:32 Pulse 77 11/29/19 10:00 Resp 18 11/29/19 06:32 BP 109/54 11/29/19 10:00 Pulse Ox 96 11/29/19 06:32 Intake & Output 11/28/19 11/29/19 11/29/19 18:59 06:59 18:59 Intake Total 800 540 Balance 800 540 Intake: Oral 800 540 Other: # Voids 3 3 # Bowel Movements 1 Active Medications: Current Medications Acetaminophen (Tylenol) 650 mg PO Q4H PRN PRN Reason: Pain (Mild 1-3) Stop: 01/15/20 04:04 Last Admin: 11/26/19 21:18 Dose: 650 mg Acetaminophen (Tylenol Extra Strength) 1,000 mg PO Q6H PRN PRN Reason: Pain (Moderate 4-6) Stop: 01/15/20 04:04 Last Admin: 11/28/19 16:16 Dose: 1,000 mg Al Hydrox/Mg Hydrox/Simethicone (Maalox) 30 ml PO Q4HR PRN PRN Reason: GI DISTRESS Stop: 01/15/20 04:04 Atenolol (Tenormin) 25 mg PO DAILY [facility] Stop: 01/16/20 08:59 Last Admin: 11/29/19 10:00 Dose: Not Given Atorvastatin Calcium (Lipitor) 40 mg PO DAILY CORNELIO; Protocol Stop: 01/16/20 08:59 Last Admin: 11/29/19 10:00 Dose: 40 mg Donepezil HCl (Aricept) 5 mg PO DAILY [facility] Stop: 01/21/20 08:59 Last Admin: 11/29/19 10:00 Dose: 5 mg Levothyroxine Sodium (Synthroid) 0.05 mg PO QDAC [facility] Stop: 01/16/20 07:29 Last Admin: 11/29/19 06:46 Dose: 0.05 mg Lorazepam (Ativan) 0.5 mg PO Q4HR PRN; Protocol PRN Reason: Anxiety Stop: 12/16/19 04:04 Last Admin: 11/21/19 08:24 Dose: 0.5 mg Magnesium Hydroxide (Milk Of Magnesia) 30 ml PO HS PRN PRN Reason: Constipation Multivitamins/Vitamin C (Theragran) 1 tab PO DAILY CORNELIO Stop: 01/15/20 08:59 Last Admin: 11/29/19 10:00 Dose: 1 tab Quetiapine Fumarate (Seroquel) 50 mg PO BID [facility]; Protocol Stop: 01/27/20 16:59 Last Admin: 11/29/19 10:00 Dose: 50 mg Warfarin Sodium (Coumadin) 5 mg PO 1300 CORNELIO; Protocol Stop: 01/26/20 12:59 Last Admin: 11/29/19 13:53 Dose: 5 mg Zolpidem Tartrate (Ambien) 5 mg PO HS PRN PRN Reason: Insomnia Stop: 01/15/20 04:52 Last Admin: 11/28/19 21:03 Dose: 5 mg HEENT: NC/AT, PERRLA Neck: Supple, No JVD Lungs: CTAB Cardiovascular: RRR, Normal S1, Normal S2 Abdomen: soft Extremities: clear Neurological: no change Internal Medicine Assmt/Plan - Assessment Assessment: 1. Coagulapathy 2. CAD 3. HTN - Plan Plan: coumadin 5 mg po daily still waiting for inr d/w r.n. reviewed complete medical records Nutritional Asmnt/Malnutr-PDOC - Dietary Evaluation Malnutrition Findings (Please click <Entered> for more info): Nutritional Asmnt/Malnutrition Start: 11/16/19 12: 33 Text: Status: Complete Freq: Protocol: Document 11/16/19 13:10 NENO (Rec: 11/16/19 13:14 NENO [id number]) Nutritional Asmnt/Malnutrition Patient General Information Nutritional Screening High Risk Diagnosis Acute Psychosis Pertinent Medical Hx/Surgical Hx HTN Subjective Information Consult: Poor nutrition, pt thin and underweight Pt is a 79-year-old female admitted on 11/15 d/t acute psychosis, agitation and striking out. Provided pt with an Ensure at 10am, visited pt at 12pm and she had drank the entire Ensure. Pt nodded she enjoyed it, pt did not use words to speak. Pt allowed me to do a limited nutrition focused physical examination as she was unable to completely sit up to view back areas. Adding Ensure Enlive TID at snack times. Nutrition Focused Physical Exam Head and Face (Severe Malnutrition) Orbital region: Slightly dark circles, somewhat hollow Buccal Region: Hollow, sunken cheeks [place] region: Deep hallowing, scooping Upper Body (Mild to Moderate Malnutrition) Upper Arm Region: Some depth to pinch, not ample Clavicle Bone Region: Clavicle shows with some protrusion Acrom[place] Bone Region: Shoulder to arm joints squared, bones prominent Ribs/Midaxillary Line (Normal) Thoracic and Lumbar Region: Chest is full and round with ribs not evident Minimal ability to visualize the iliac crest Lower Extremities (Mild to Moderate Malnutrition) Anterior thigh region: Slight depressions Patellar Region: Kneecap is more prominent Posterior Calf Region: Less- developed bulb of muscle Anthropometrics HT: 57 WT: 104 LB (47.27 kg) IBW: 135 LB (61.36 kg), 77% IBW BMI: 16.31 (underweight) GI/ Skin Integrity GI: WNL, Non-tender, Flat, Soft BM: Not Noted I/O: 120/Not Noted Skin: WNL Wilbert: 19 Diet Order: Cardiac Estimated Energy Needs: ( Underweight, CBW) 5428-0863 kcals (30-35 kcals/ kg) 55-60g Pro (1.2-1.3 g/kg) 7210-8031 ml (30-35 ml/kg) Current Diet Order/ Nutrition Support Cardiac Patient / S.O Can't verbalize diet edu Pertinent Medications Maalox (PRN), MOM (PRN), Theragran Pertinent Labs 11/13: PT 16.2, INR 1.64, Na 146, Cl 112, TSH 5.337, Free T4 0.85 Nutritional Hx/Data Height 1.7 m Height (Calculated Centimeters) 170.2 Current Weight (lbs) 47.174 kg Weight (Calculated Kilograms) 47.2 Weight (Calculated Grams) 85933.6 [place] Body Weight 135 LB (61.36 kg) % [place] Body Weight 77 Body Mass Index (BMI) 16.2 Weight Status Underweight GI Symptoms Last BM Not Noted Skin Integrity/Comment: Skin: WNL Wilbert: 19 Estimated Nutritional Goals BEE in Kcals: Using Current wt Calories/Kcals/Kg 30-35 Kcals Calculated 3888-3633 Protein: Using Current wt Protein g/k.2-1.3 Protein Calculated 55-60 Fluid: ml 2488-2731 ml (30-35 ml/kg) Nutritional Problem 2. Problem Problem Malnutrition Etiology r/t inadequate energy and protein intake Signs/Symptoms: aeb mild to moderate muscle and fat wasting noted on exam with some clavicle, Acromion, and kneecap protrusion, and slight bulb of muscle in calf region. 1. Problem Problem Underweight Etiology r/t chronic energy underconsumption Signs/Symptoms: aeb BMI >18.5 (16.31). Malnutrition Alert Body Fat Depletion (Non-Severe) Mild Depletion Muscle Mass (Non-Severe) Mild Depletion Is there a minimum of two criteria Yes selected? Query Text:Check all the applicable criteria. A minimum of two criteria are recommended for diagnosis of either severe or non-severe malnutrition. Malnutrition Related to Morbid Obesity Malnutrition related to morbid obesity No Intervention/Recommendation Recommendations by RD Increase Calorie Intake Comments 1.Continue cardiac diet as tolerated. 2.Add Ensure Enlive TID ( completed). 3.Nurse to encourage PO intake . 4.Weekly weights. Expected Outcomes/Goals Expected Outcomes/Goals 1.PO intake to meet 75% of estimated nutritional needs. 2.Gradual weight gain (~1.0 LB /week) trending toward IBW preferred. 3.Monitor PO intake, wt, nutrition related labs, and skin integrity. 4.F/U as moderate risk in 3-5 days, 11/18-11/20.
--- NOTE | 2019-11-29 14:09 | Progress Notes ---
DATE: 11/29/2019 Case was discussed with staff of the patient, reviewed records also discussed the care with her daughter yesterday. Finally, I managed to talk. We had a lengthy discussion, she told me that her mother has dementia and that she has multiple somatic complaints and the patient continues to be unpredictable and impulsive. She has difficulty explaining herself. The daughter reports she was having hard time taking care of her mother. She is going to wait until she sees how she progresses, she may decide to have her go to a nursing facility. No side effects with the medication, no sedation, no nausea, no extrapyramidal symptoms. Tolerating increase in her Seroquel yesterday to 50 mg twice a day. We will continue outpatient therapy, adjust medication as needed. JOB# [id number]
[2019-11-30] MEDS: Levothyroxine 0.05 Mg Tab PO SCH (06:43)
[2019-11-30] MEDS: Multivitamin Tab PO SCH (09:22)
--- NOTE | 2019-11-30 11:19 | Progress Notes ---
DATE: 11/30/2019 Case was discussed with staff of the patient, reviewed records. The patient is smiling today. She seems to be calmer. She is sleeping well, eating well. I did talk to her daughter, the staff believes maybe she had basic level of functioning. I left a message for her daughter yesterday to tell us how the patient if she thinks the patient is doing better. No side effects with the medication, no sedation, no nausea, no extrapyramidal symptoms. I will continue outpatient group therapy, milieu therapy, adjust medication as needed. JOB# [id number]
[2019-12-01] MEDS: Levothyroxine 0.05 Mg Tab PO SCH (06:37)
[2019-12-01] MEDS: Multivitamin Tab PO SCH (08:33)
--- NOTE | 2019-12-01 14:22 | Internal Medicine Prog Note ---
Internal Medicine Subjective - Subjective Service Date: 12/01/19 Patient seen and examined:: without staff Patient is:: awake Per staff patient has:: no adverse event, no episodes of fall Internal Medicine Objective - Results Result Diagrams: 11/17/19 12:31 11/22/19 09:17 Recent Labs: Laboratory Last Values WBC 5.5 K/uL (4.8-10.8) 11/17/19 12:31 RBC 4.73 MIL/uL (4.2-6.2) 11/17/19 12:31 Hgb 12.8 g/dL (12.0-16.0) 11/17/19 12:31 Hct 41.5 % (36-48) 11/17/19 12:31 MCV 88 fL (79.0-98.0) 11/17/19 12:31 MCH 27 pg (27-31) 11/17/19 12:31 MCHC 31 % (32-36) L 11/17/19 12:31 RDW 17.1 % (9.0-15.0) H 11/17/19 12:31 Plt Count 162 K/uL (130-430) 11/17/19 12:31 MPV 11.3 fl (7.4-10.4) H 11/17/19 12:31 Neut % (Auto) 59.2 % (40-70) 11/17/19 12: Lymph % (Auto) 28.9 % (20.5-51.5) 11/17/19 12:31 Glascock % (Auto) 10.0 % (1.7-9.3) H 11/17/19 12:31 Eos % (Auto) 1.5 % (0-4) 11/17/19 12:31 Baso % (Auto) 0.4 % (0.0-2.0) 11/17/19 12:31 Neut # (Auto) 3.2 K/uL (1.8-7.7) 11/17/19 12: Lymph # (Auto) 1.6 K/uL (1.0-5.5) 11/17/19 12:31 Glascock # (Auto) 0.5 K/uL (0.0-1.0) 11/17/19 12:31 Eos # (Auto) 0.1 K/uL (0.0-0.4) 11/17/19 12:31 Baso # (Auto) 0.0 K/uL (0.0-0.2) 11/17/19 12:31 PT 13.2 SECS (9.5-12.5) H 11/28/19 13:20 INR 1.16 (0.5-1.4) 11/24/19 12:28 Sodium 140 mmol/L (136-145) 11/22/19 09:17 Potassium 4.6 mmol/L (3.5-5.1) 11/22/19 09:17 Chloride 108 mmol/L (98-107) H 11/22/19 09:17 Carbon Dioxide 26 mmol/L (23-29) 11/22/19 09:17 Anion Gap 11 (5-15) 11/22/19 09:17 BUN 22 mg/dL (8-21) H 11/22/19 09:17 Creatinine 1.11 mg/dL (0.70-1.30) 11/22/19 09:17 Glucose 67 mg/dL (70-99) L 11/22/19 09:17 POC Glucose 96 MG/DL (70 - 105) 11/16/19 03:10 Hemoglobin A1c 5.6 % (4.8-5.6) 11/17/19 12:49 Calcium 9.9 mg/dL (8.4-10.2) 11/22/19 09:17 Total Bilirubin 0.4 mg/dL (0.0-1.0) 11/22/19 09:17 AST 40 U/L (10-37) H 11/22/19 09:17 ALT 27 U/L (12-78) 11/22/19 09:17 Alkaline Phosphatase 119 U/L (46-116) H 11/22/19 09:17 Total Protein 6.9 g/dL (6.4-8.3) 11/22/19 09:17 Albumin 3.1 g/dL (3.4-5.0) L 11/22/19 09:17 Triglycerides 130 mg/dL (30-150) 11/17/19 12:31 Cholesterol 158 mg/dL (<200) 11/17/19 12:31 LDL Cholesterol 101 mg/dL (0-129) 11/17/19 12:31 HDL Cholesterol 42 mg/dL (>55) L 11/17/19 12:31 - Physical Exam Vitals and I&O: Vital Signs Temp 98.3 F 12/01/19 06:02 Pulse 79 12/01/19 08:33 Resp 18 12/01/19 07:34 BP 120/64 12/01/19 08:33 Pulse Ox 94 12/01/19 06:02 Intake & Output 11/30/19 12/01/19 12/01/19 18:59 06:59 18:59 Intake Total 1200 360 Balance 1200 360 Intake: Oral 1200 360 Other: # Voids 1 # Bowel Movements 1 Active Medications: Current Medications Acetaminophen (Tylenol) 650 mg PO Q4H PRN PRN Reason: Pain (Mild 1-3) Stop: 01/15/20 04:04 Last Admin: 11/26/19 21:18 Dose: 650 mg Acetaminophen (Tylenol Extra Strength) 1,000 mg PO Q6H PRN PRN Reason: Pain (Moderate 4-6) Stop: 01/15/20 04:04 Last Admin: 11/28/19 16:16 Dose: 1,000 mg Al Hydrox/Mg Hydrox/Simethicone (Maalox) 30 ml PO Q4HR PRN PRN Reason: GI DISTRESS Stop: 01/15/20 04:04 Atenolol (Tenormin) 25 mg PO DAILY [facility] Stop: 01/16/20 08:59 Last Admin: 12/01/19 08:33 Dose: 25 mg Atorvastatin Calcium (Lipitor) 40 mg PO DAILY [facility]; Protocol Stop: 01/16/20 08:59 Last Admin: 12/01/19 08:32 Dose: 40 mg Donepezil HCl (Aricept) 5 mg PO DAILY [facility] Stop: 01/21/20 08:59 Last Admin: 12/01/19 08:32 Dose: 5 mg Levothyroxine Sodium (Synthroid) 0.05 mg PO QDAC [facility] Stop: 01/16/20 07:29 Last Admin: 12/01/19 06:37 Dose: 0.05 mg Lorazepam (Ativan) 0.5 mg PO Q4HR PRN; Protocol PRN Reason: Anxiety Stop: 12/16/19 04:04 Last Admin: 11/21/19 08:24 Dose: 0.5 mg Magnesium Hydroxide (Milk Of Magnesia) 30 ml PO HS PRN PRN Reason: Constipation Multivitamins/Vitamin C (Theragran) 1 tab PO DAILY [facility] Stop: 01/15/20 08:59 Last Admin: 12/01/19 08:33 Dose: 1 tab Quetiapine Fumarate (Seroquel) 50 mg PO BID [facility]; Protocol Stop: 01/27/20 16:59 Last Admin: 12/01/19 08:32 Dose: 50 mg Warfarin Sodium (Coumadin) 5 mg PO 1300 [facility]; Protocol Stop: 01/26/20 12:59 Last Admin: 12/01/19 12:20 Dose: 5 mg Zolpidem Tartrate (Ambien) 5 mg PO HS PRN PRN Reason: Insomnia Stop: 01/15/20 04:52 Last Admin: 11/28/19 21:03 Dose: 5 mg HEENT: NC/AT, PERRLA Neck: Supple, No JVD Lungs: CTAB Cardiovascular: RRR, Normal S1, Normal S2 Abdomen: soft Extremities: clear Neurological: no change Internal Medicine Assmt/Plan - Assessment Assessment: 1. Coagulapathy 2. CAD 3. HTN - Plan Plan: coumadin 5 mg po daily repeat INR, pt.ptt. d/w r.n. reviewed complete medical records Nutritional Asmnt/Malnutr-PDOC - Dietary Evaluation Malnutrition Findings (Please click <Entered> for more info): Nutritional Asmnt/Malnutrition Start: 11/16/19 12: 33 Text: Status: Complete Freq: Protocol: Document 11/16/19 13:10 NENO (Rec: 11/16/19 13:14 [id number] [id number]) Nutritional Asmnt/Malnutrition Patient General Information Nutritional Screening High Risk Diagnosis Acute Psychosis Pertinent Medical Hx/Surgical Hx HTN Subjective Information Consult: Poor nutrition, pt thin and underweight Pt is a 79-year-old female admitted on 11/15 d/t acute psychosis, agitation and striking out. Provided pt with an Ensure at 10am, visited pt at 12pm and she had drank the entire Ensure. Pt nodded she enjoyed it, pt did not use words to speak. Pt allowed me to do a limited nutrition focused physical examination as she was unable to completely sit up to view back areas. Adding Ensure Enlive TID at snack times. Nutrition Focused Physical Exam Head and Face (Severe Malnutrition) Orbital region: Slightly dark circles, somewhat hollow Buccal Region: Hollow, sunken cheeks Jain region: Deep hallowing, scooping Upper Body (Mild to Moderate Malnutrition) Upper Arm Region: Some depth to pinch, not ample Clavicle Bone Region: Clavicle shows with some protrusion Acromion Bone Region: Shoulder to arm joints squared, bones prominent Ribs/Midaxillary Line (Normal) Thoracic and Lumbar Region: Chest is full and round with ribs not evident Minimal ability to visualize the iliac crest Lower Extremities (Mild to Moderate Malnutrition) Anterior thigh region: Slight depressions Patellar Region: Kneecap is more prominent Posterior Calf Region: Less- developed bulb of muscle Anthropometrics HT: 57 WT: 104 LB (47.27 kg) IBW: 135 LB (61.36 kg), 77% IBW BMI: 16.31 (underweight) GI/ Skin Integrity GI: WNL, Non-tender, Flat, Soft BM: Not Noted I/O: 120/Not Noted Skin: WNL Wilbert: 19 Diet Order: Cardiac Estimated Energy Needs: ( Underweight, CBW) 5565-5033 kcals (30-35 kcals/ kg) 55-60g Pro (1.2-1.3 g/kg) 6884-4940 ml (30-35 ml/kg) Current Diet Order/ Nutrition Support Cardiac Patient / S.O Can't verbalize diet edu Pertinent Medications Maalox (PRN), MOM (PRN), Theragran Pertinent Labs 11/13: PT 16.2, INR 1.64, Na 146, Cl 112, TSH 5.337, Free T4 0.85 Nutritional Hx/Data Height 1.7 m Height (Calculated Centimeters) 170.2 Current Weight (lbs) 47.174 kg Weight (Calculated Kilograms) 47.2 Weight (Calculated Grams) 49852.6 [place] Body Weight 135 LB (61.36 kg) % [place] Body Weight 77 Body Mass Index (BMI) 16.2 Weight Status Underweight GI Symptoms Last BM Not Noted Skin Integrity/Comment: Skin: WNL Wilbert: 19 Estimated Nutritional Goals BEE in Kcals: Using Current wt Calories/Kcals/Kg 30-35 Kcals Calculated 1599-1359 Protein: Using Current wt Protein g/k.2-1.3 Protein Calculated 55-60 Fluid: ml 9508-3643 ml (30-35 ml/kg) Nutritional Problem 2. Problem Problem Malnutrition Etiology r/t inadequate energy and protein intake Signs/Symptoms: aeb mild to moderate muscle and fat wasting noted on exam with some clavicle, Acromion, and kneecap protrusion, and slight bulb of muscle in calf region. 1. Problem Problem Underweight Etiology r/t chronic energy underconsumption Signs/Symptoms: aeb BMI >18.5 (16.31). Malnutrition Alert Body Fat Depletion (Non-Severe) Mild Depletion Muscle Mass (Non-Severe) Mild Depletion Is there a minimum of two criteria Yes selected? Query Text:Check all the applicable criteria. A minimum of two criteria are recommended for diagnosis of either severe or non-severe malnutrition. Malnutrition Related to Morbid Obesity Malnutrition related to morbid obesity No Intervention/Recommendation Recommendations by RD Increase Calorie Intake Comments 1.Continue cardiac diet as tolerated. 2.Add Ensure Enlive TID ( completed). 3.Nurse to encourage PO intake . 4.Weekly weights. Expected Outcomes/Goals Expected Outcomes/Goals 1.PO intake to meet 75% of estimated nutritional needs. 2.Gradual weight gain (~1.0 LB /week) trending toward IBW preferred. 3.Monitor PO intake, wt, nutrition related labs, and skin integrity. 4.F/U as moderate risk in 3-5 days, 11/18-11/20.
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
[2019-12-02] MEDS: Levothyroxine 0.05 Mg Tab PO SCH (06:53)
[2019-12-02] MEDS: Multivitamin Tab PO SCH (08:32)
--- NOTE | 2019-12-02 14:01 | Progress Notes ---
DATE: 12/02/2019 Covering for Randall Hinkle M.D. SUBJECTIVE: The patient was interviewed. Case was discussed with staff. Chart and records were reviewed. Per the staff, the patient is willing to sign voluntary and remain in the hospital. The patient was visited at bedside this afternoon. She is lying in bed, but she did not want to cooperate at all with the interview. She is lying there, does not maintain any eye contact until approached by this provider, but acknowledges that the provider is there; there appear to be no side effects to medications. The patient apparently has been communicating more per Dr. Esparza's notes. Also, her appetite is improving. The patient is pending placement. MENTAL STATUS EXAMINATION: The patient is an elderly female lying in the hospital bed; limited eye contact, limited engagement. Speech is selectively mute. Loose thought process: Unable to assess for suicidal or homicidal thoughts, hallucinations or paranoia. Alert and oriented to place. Insight, judgment and impulse control appear to be limited. ASSESSMENT AND PLAN: We will continue her current treatment plan. We will also attempt to find placement. The patient may be accepted at [facility]. Also, encouraged the patient to verbalize needs and participate in group and milieu therapy. JOB# [id number]
[2019-12-03] MEDS: Levothyroxine 0.05 Mg Tab PO SCH (06:44)
[2019-12-03] MEDS: Multivitamin Tab PO SCH (08:52)
[2019-12-04] MEDS: Levothyroxine 0.05 Mg Tab PO SCH (06:29)
[2019-12-04] MEDS: Multivitamin Tab PO SCH (09:04)
--- NOTE | 2019-12-05 05:24 | Psych Progress Note ---
Psych Progress Note - Intro Date of Progress Note: 12/03/19 - Assessment Assessment: patient not willing to participate much with interview but per staff no agitation, medication adherent. needs prompting for ADLs and self care. remains withdrawn in room most of the day. no plan for care. - Vitals, I&O Vitals: Vital Signs - 24 hr 12/04/19 12/04/19 12/04/19 06:05 08:00 09:04 Temp 98.1 F HR 52 63 RR 18 20 BP 145/63 153/72 O2 Sat % 95 12/04/19 12/04/19 12/04/19 15:11 20:00 20:45 Temp 97.1 F 98 F HR 49 54 RR 20 20 19 BP 142/71 127/69 O2 Sat % 96 96 - Objective Psych General Appearance: Report: Little eye-contact Psych Behavior: Report: Uncooperative Psych Mood: Report: Euthymic Psych Affect: Report: Flat Psych Insight: Report: Impaired Psych Judgement: Report: Impaired - Plan Plan: cont meds - Review of Relevant Data Review of Relevant Data: I have reviewed the following items and time jacklyn (where applicable) has been applied. - Medications Current Medications: Current Medications Acetaminophen (Tylenol) 650 mg PO Q4H PRN PRN Reason: Pain (Mild 1-3) Stop: 01/15/20 04:04 Last Admin: 11/26/19 21:18 Dose: 650 mg Acetaminophen (Tylenol Extra Strength) 1,000 mg PO Q6H PRN PRN Reason: Pain (Moderate 4-6) Stop: 01/15/20 04:04 Last Admin: 11/28/19 16:16 Dose: 1,000 mg Al Hydrox/Mg Hydrox/Simethicone (Maalox) 30 ml PO Q4HR PRN PRN Reason: GI DISTRESS Stop: 01/15/20 04:04 Atenolol (Tenormin) 25 mg PO DAILY [facility] Stop: 01/16/20 08:59 Last Admin: 12/04/19 09:04 Dose: 25 mg Atorvastatin Calcium (Lipitor) 40 mg PO DAILY [facility]; Protocol Stop: 01/16/20 08:59 Last Admin: 12/04/19 09:04 Dose: 40 mg Donepezil HCl (Aricept) 5 mg PO DAILY [facility] Stop: 01/21/20 08:59 Last Admin: 12/04/19 09:04 Dose: 5 mg Levothyroxine Sodium (Synthroid) 0.05 mg PO QDAC [facility] Stop: 01/16/20 07:29 Last Admin: 12/04/19 06:29 Dose: 0.05 mg Lorazepam (Ativan) 0.5 mg PO Q4HR PRN; Protocol PRN Reason: Anxiety Stop: 12/16/19 04:04 Last Admin: 11/21/19 08:24 Dose: 0.5 mg Magnesium Hydroxide (Milk Of Magnesia) 30 ml PO HS PRN PRN Reason: Constipation Multivitamins/Vitamin C (Theragran) 1 tab PO DAILY [facility] Stop: 01/15/20 08:59 Last Admin: 12/04/19 09:04 Dose: 1 tab Quetiapine Fumarate (Seroquel) 50 mg PO BID [facility]; Protocol Stop: 01/27/20 16:59 Last Admin: 12/04/19 16:57 Dose: 50 mg Warfarin Sodium (Coumadin) 5 mg PO 1300 [facility]; Protocol Stop: 01/26/20 12:59 Last Admin: 12/04/19 14:01 Dose: 5 mg Zolpidem Tartrate (Ambien) 5 mg PO HS PRN PRN Reason: Insomnia Stop: 01/15/20 04:52 Last Admin: 12/02/19 21:49 Dose: 5 mg
--- NOTE | 2019-12-05 05:25 | Psych Progress Note ---
Psych Progress Note - Intro Date of Progress Note: 12/04/19 - Assessment Assessment: patient not willing to participate much with interview but per staff no agitation, medication adherent. needs prompting for ADLs and self care. remains withdrawn in room most of the day. no plan for care. - Vitals, I&O Vitals: Vital Signs - 24 hr 12/04/19 12/04/19 12/04/19 06:05 08:00 09:04 Temp 98.1 F HR 52 63 RR 18 20 BP 145/63 153/72 O2 Sat % 95 12/04/19 12/04/19 12/04/19 15:11 20:00 20:45 Temp 97.1 F 98 F HR 49 54 RR 20 20 19 BP 142/71 127/69 O2 Sat % 96 96 - Objective Psych General Appearance: Report: Little eye-contact Psych Behavior: Report: Uncooperative Psych Mood: Report: Euthymic Psych Affect: Report: Flat Psych Insight: Report: Impaired Psych Judgement: Report: Impaired - Plan Plan: cont meds - Review of Relevant Data Review of Relevant Data: I have reviewed the following items and time jacklyn (where applicable) has been applied. - Medications Current Medications: Current Medications Acetaminophen (Tylenol) 650 mg PO Q4H PRN PRN Reason: Pain (Mild 1-3) Stop: 01/15/20 04:04 Last Admin: 11/26/19 21:18 Dose: 650 mg Acetaminophen (Tylenol Extra Strength) 1,000 mg PO Q6H PRN PRN Reason: Pain (Moderate 4-6) Stop: 01/15/20 04:04 Last Admin: 11/28/19 16:16 Dose: 1,000 mg Al Hydrox/Mg Hydrox/Simethicone (Maalox) 30 ml PO Q4HR PRN PRN Reason: GI DISTRESS Stop: 01/15/20 04:04 Atenolol (Tenormin) 25 mg PO DAILY [facility] Stop: 01/16/20 08:59 Last Admin: 12/04/19 09:04 Dose: 25 mg Atorvastatin Calcium (Lipitor) 40 mg PO DAILY [facility]; Protocol Stop: 01/16/20 08:59 Last Admin: 12/04/19 09:04 Dose: 40 mg Donepezil HCl (Aricept) 5 mg PO DAILY [facility] Stop: 01/21/20 08:59 Last Admin: 12/04/19 09:04 Dose: 5 mg Levothyroxine Sodium (Synthroid) 0.05 mg PO QDAC [facility] Stop: 01/16/20 07:29 Last Admin: 12/04/19 06:29 Dose: 0.05 mg Lorazepam (Ativan) 0.5 mg PO Q4HR PRN; Protocol PRN Reason: Anxiety Stop: 12/16/19 04:04 Last Admin: 11/21/19 08:24 Dose: 0.5 mg Magnesium Hydroxide (Milk Of Magnesia) 30 ml PO HS PRN PRN Reason: Constipation Multivitamins/Vitamin C (Theragran) 1 tab PO DAILY [facility] Stop: 01/15/20 08:59 Last Admin: 12/04/19 09:04 Dose: 1 tab Quetiapine Fumarate (Seroquel) 50 mg PO BID [facility]; Protocol Stop: 01/27/20 16:59 Last Admin: 12/04/19 16:57 Dose: 50 mg Warfarin Sodium (Coumadin) 5 mg PO 1300 [facility]; Protocol Stop: 01/26/20 12:59 Last Admin: 12/04/19 14:01 Dose: 5 mg Zolpidem Tartrate (Ambien) 5 mg PO HS PRN PRN Reason: Insomnia Stop: 01/15/20 04:52 Last Admin: 12/02/19 21:49 Dose: 5 mg
[2019-12-05] MEDS: Levothyroxine 0.05 Mg Tab PO SCH (08:24)
[2019-12-05] MEDS: Multivitamin Tab PO SCH (08:24)
[2019-12-05 10:32] LABS: PROTHROMBIN TIME (TEST) 16.2 SECS (9.5-12.5)
[2019-12-05 10:41] LABS: INR 1.62 (0.5-1.4)
[2019-12-05 12:10] LABS: HEMATOCRIT 42.4 % (36-48); HEMOGLOBIN 13.7 g/dL (12.0-16.0)
[2019-12-05 14:08] LABS: INR 1.57 (0.5-1.4)
[2019-12-05 14:09] LABS: PROTHROMBIN TIME (TEST) 15.8 SECS (9.5-12.5)
[2019-12-05 14:24] LABS: INR 1.32 (0.5-1.4)
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
[2019-12-06] MEDS: Levothyroxine 0.05 Mg Tab PO SCH (07:35)
[2019-12-06] MEDS: Multivitamin Tab PO SCH (08:18)
--- NOTE | 2019-12-06 14:15 | Internal Medicine Prog Note ---
Internal Medicine Subjective - Subjective Service Date: 12/06/19 Patient seen and examined:: without staff Patient is:: awake Per staff patient has:: no adverse event, no episodes of fall Internal Medicine Objective - Results Result Diagrams: 12/05/19 09:30 11/22/19 09:17 Recent Labs: Laboratory Last Values WBC 5.5 K/uL (4.8-10.8) 11/17/19 12:31 RBC 4.73 MIL/uL (4.2-6.2) 11/17/19 12:31 Hgb 13.7 g/dL (12.0-16.0) 12/05/19 09:30 Hct 42.4 % (36-48) 12/05/19 09:30 MCV 88 fL (79.0-98.0) 11/17/19 12:31 MCH 27 pg (27-31) 11/17/19 12:31 MCHC 31 % (32-36) L 11/17/19 12:31 RDW 17.1 % (9.0-15.0) H 11/17/19 12:31 Plt Count 184 K/uL (130-430) 12/05/19 09:30 MPV 11.3 fl (7.4-10.4) H 11/17/19 12:31 Neut % (Auto) 59.2 % (40-70) 11/17/19 12:31 Lymph % (Auto) 28.9 % (20.5-51.5) 11/17/19 12:31 [place] % (Auto) 10.0 % (1.7-9.3) H 11/17/19 12:31 Eos % (Auto) 1.5 % (0-4) 11/17/19 12:31 Baso % (Auto) 0.4 % (0.0-2.0) 11/17/19 12:31 Neut # (Auto) 3.2 K/uL (1.8-7.7) 11/17/19 12:31 Lymph # (Auto) 1.6 K/uL (1.0-5.5) 11/17/19 12:31 [place] # (Auto) 0.5 K/uL (0.0-1.0) 11/17/19 12:31 Eos # (Auto) 0.1 K/uL (0.0-0.4) 11/17/19 12:31 Baso # (Auto) 0.0 K/uL (0.0-0.2) 11/17/19 12:31 PT 15.8 SECS (9.5-12.5) H 12/05/19 09:30 INR 1.57 (0.5-1.4) H 12/05/19 09:30 Sodium 140 mmol/L (136-145) 11/22/19 09:17 Potassium 4.6 mmol/L (3.5-5.1) 11/22/19 09:17 Chloride 108 mmol/L (98-107) H 11/22/19 09:17 Carbon Dioxide 26 mmol/L (23-29) 11/22/19 09:17 Anion Gap 11 (5-15) 11/22/19 09:17 BUN 22 mg/dL (8-21) H 11/22/19 09:17 Creatinine 1.11 mg/dL (0.70-1.30) 11/22/19 09:17 Glucose 67 mg/dL (70-99) L 11/22/19 09:17 POC Glucose 96 MG/DL (70 - 105) 11/16/19 03:10 Hemoglobin A1c 5.6 % (4.8-5.6) 11/17/19 12:49 Calcium 9.9 mg/dL (8.4-10.2) 11/22/19 09:17 Total Bilirubin 0.4 mg/dL (0.0-1.0) 11/22/19 09:17 AST 40 U/L (10-37) H 11/22/19 09:17 ALT 27 U/L (12-78) 11/22/19 09:17 Alkaline Phosphatase 119 U/L (46-116) H 11/22/19 09:17 Total Protein 6.9 g/dL (6.4-8.3) 11/22/19 09:17 Albumin 3.1 g/dL (3.4-5.0) L 11/22/19 09:17 Triglycerides 130 mg/dL (30-150) 11/17/19 12:31 Cholesterol 158 mg/dL (<200) 11/17/19 12:31 LDL Cholesterol 101 mg/dL (0-129) 11/17/19 12:31 HDL Cholesterol 42 mg/dL (>55) L 11/17/19 12:31 Coronavirus (PCR) NOT DETECTED (NOT DETECTD) 12/02/19 12:02 - Physical Exam Vitals and I&O: Vital Signs Temp 97.6 F 12/06/19 06:20 Pulse 79 12/06/19 08:18 Resp 17 12/06/19 08:00 BP 122/71 12/06/19 08:18 Pulse Ox 97 12/05/19 21:06 Intake & Output 12/05/19 12/06/19 12/06/19 18:59 06:59 18:59 Intake Total 240 Balance 240 Intake: Oral 240 Other: # Voids 1 Stool Characteristics Formed Formed Formed Active Medications: Current Medications Acetaminophen (Tylenol) 650 mg PO Q4H PRN PRN Reason: Pain (Mild 1-3) Stop: 01/15/20 04:04 Last Admin: 11/26/19 21:18 Dose: 650 mg Acetaminophen (Tylenol Extra Strength) 1,000 mg PO Q6H PRN PRN Reason: Pain (Moderate 4-6) Stop: 01/15/20 04:04 Last Admin: 11/28/19 16:16 Dose: 1,000 mg Al Hydrox/Mg Hydrox/Simethicone (Maalox) 30 ml PO Q4HR PRN PRN Reason: GI DISTRESS Stop: 01/15/20 04:04 Atenolol (Tenormin) 25 mg PO DAILY CORNELIO Stop: 01/16/20 08:59 Last Admin: 12/06/19 08:18 Dose: 25 mg Atorvastatin Calcium (Lipitor) 40 mg PO HS CORNELIO; Protocol Stop: 02/03/20 20:59 Last Admin: 12/05/19 23:09 Dose: 40 mg Donepezil HCl (Aricept) 5 mg PO DAILY CORNELIO Stop: 01/21/20 08:59 Last Admin: 12/06/19 08:18 Dose: 5 mg Levothyroxine Sodium (Synthroid) 0.05 mg PO QDAC CORNELIO Stop: 01/16/20 07:29 Last Admin: 12/06/19 07:35 Dose: 0.05 mg Lorazepam (Ativan) 0.5 mg PO Q4HR PRN; Protocol PRN Reason: Anxiety Stop: 12/16/19 04:04 Last Admin: 11/21/19 08:24 Dose: 0.5 mg Magnesium Hydroxide (Milk Of Magnesia) 30 ml PO HS PRN PRN Reason: Constipation Multivitamins/Vitamin C (Theragran) 1 tab PO DAILY CORNELIO Stop: 01/15/20 08:59 Last Admin: 12/06/19 08:18 Dose: 1 tab Quetiapine Fumarate (Seroquel) 50 mg PO BID [facility]; Protocol Stop: 01/27/20 16:59 Last Admin: 12/06/19 08:18 Dose: 50 mg Warfarin Sodium (Coumadin) 5 mg PO 1300 CORNELIO; Protocol Stop: 01/26/20 12:59 Last Admin: 12/06/19 13:06 Dose: 5 mg Zolpidem Tartrate (Ambien) 5 mg PO HS PRN PRN Reason: Insomnia Stop: 01/15/20 04:52 Last Admin: 12/02/19 21:49 Dose: 5 mg HEENT: NC/AT, PERRLA Neck: Supple, No JVD Lungs: CTAB Cardiovascular: RRR, Normal S1, Normal S2 Abdomen: soft Extremities: clear Neurological: no change Internal Medicine Assmt/Plan - Assessment Assessment: 1. Coagulapathy 2. CAD 3. HTN - Plan Plan: coumadin 5 mg po daily INR slowly climbing to goal of 2-3. no obvious bleeding. no rectal bleeding no melena d/w r.n. reviewed complete medical records Nutritional Asmnt/Malnutr-PDOC - Dietary Evaluation Malnutrition Findings (Please click <Entered> for more info): Nutritional Asmnt/Malnutrition Start: 11/16/19 12: 33 Text: Status: Complete Freq: Protocol: Document 11/16/19 13:10 NENO (Rec: 11/16/19 13:14 NENO [id number]) Nutritional Asmnt/Malnutrition Patient General Information Nutritional Screening High Risk Diagnosis Acute Psychosis Pertinent Medical Hx/Surgical Hx HTN Subjective Information Consult: Poor nutrition, pt thin and underweight Pt is a 79-year-old female admitted on 11/15 d/t acute psychosis, agitation and striking out. Provided pt with an Ensure at 10am, visited pt at 12pm and she had drank the entire Ensure. Pt nodded she enjoyed it, pt did not use words to speak. Pt allowed me to do a limited nutrition focused physical examination as she was unable to completely sit up to view back areas. Adding Ensure Enlive TID at snack times. Nutrition Focused Physical Exam Head and Face (Severe Malnutrition) Orbital region: Slightly dark circles, somewhat hollow Buccal Region: Hollow, sunken cheeks Gnosticist region: Deep hallowing, scooping Upper Body (Mild to Moderate Malnutrition) Upper Arm Region: Some depth to pinch, not ample Clavicle Bone Region: Clavicle shows with some protrusion Acromion Bone Region: Shoulder to arm joints squared, bones prominent Ribs/Midaxillary Line (Normal) Thoracic and Lumbar Region: Chest is full and round with ribs not evident Minimal ability to visualize the iliac crest Lower Extremities (Mild to Moderate Malnutrition) Anterior thigh region: Slight depressions Patellar Region: Kneecap is more prominent Posterior Calf Region: Less- developed bulb of muscle Anthropometrics HT: 57 WT: 104 LB (47.27 kg) IBW: 135 LB (61.36 kg), 77% IBW BMI: 16.31 (underweight) GI/ Skin Integrity GI: WNL, Non-tender, Flat, Soft BM: Not Noted I/O: 120/Not Noted Skin: WNL Wilbert: 19 Diet Order: Cardiac Estimated Energy Needs: ( Underweight, CBW) 4134-0729 kcals (30-35 kcals/ kg) 55-60g Pro (1.2-1.3 g/kg) 6844-1217 ml (30-35 ml/kg) Current Diet Order/ Nutrition Support Cardiac Patient / S.O Can't verbalize diet edu Pertinent Medications Maalox (PRN), MOM (PRN), Theragran Pertinent Labs 11/13: PT 16.2, INR 1.64, Na 146, Cl 112, TSH 5.337, Free T4 0.85 Nutritional Hx/Data Height 1.7 m Height (Calculated Centimeters) 170.2 Current Weight (lbs) 47.174 kg Weight (Calculated Kilograms) 47.2 Weight (Calculated Grams) 92860.6 [place] Body Weight 135 LB (61.36 kg) % [place] Body Weight 77 Body Mass Index (BMI) 16.2 Weight Status Underweight GI Symptoms Last BM Not Noted Skin Integrity/Comment: Skin: WNL Wilbert: 19 Estimated Nutritional Goals BEE in Kcals: Using Current wt Calories/Kcals/Kg 30-35 Kcals Calculated 1198-6956 Protein: Using Current wt Protein g/k.2-1.3 Protein Calculated 55-60 Fluid: ml 7477-8416 ml (30-35 ml/kg) Nutritional Problem 2. Problem Problem Malnutrition Etiology r/t inadequate energy and protein intake Signs/Symptoms: aeb mild to moderate muscle and fat wasting noted on exam with some clavicle, Acromion, and kneecap protrusion, and slight bulb of muscle in calf region. 1. Problem Problem Underweight Etiology r/t chronic energy underconsumption Signs/Symptoms: aeb BMI >18.5 (16.31). Malnutrition Alert Body Fat Depletion (Non-Severe) Mild Depletion Muscle Mass (Non-Severe) Mild Depletion Is there a minimum of two criteria Yes selected? Query Text:Check all the applicable criteria. A minimum of two criteria are recommended for diagnosis of either severe or non-severe malnutrition. Malnutrition Related to Morbid Obesity Malnutrition related to morbid obesity No Intervention/Recommendation Recommendations by RD Increase Calorie Intake Comments 1.Continue cardiac diet as tolerated. 2.Add Ensure Enlive TID ( completed). 3.Nurse to encourage PO intake . 4.Weekly weights. Expected Outcomes/Goals Expected Outcomes/Goals 1.PO intake to meet 75% of estimated nutritional needs. 2.Gradual weight gain (~1.0 LB /week) trending toward IBW preferred. 3.Monitor PO intake, wt, nutrition related labs, and skin integrity. 4.F/U as moderate risk in 3-5 days, 11/18-11/20.
--- NOTE | 2019-12-07 00:37 | Progress Notes ---
DATE: 12/06/2019 Case was discussed with staff of the patient, reviewed records. The patient was supposed to have been discharged yesterday. Apparently, the emt took her to to [place]; however, the EMT found her to have a high temperature, so they brought her back, so now we are going to go through the process again, trying to discharge her. Sleeping well, eating well. No suicidal ideation, no homicidal ideation, no paranoia, no side effect, so she may be discharged today if a place becomes available and they accept her and meanwhile we will continue the patient in group therapy, milieu therapy, and adjust medication as needed. JOB# [id number] [email or web address]
[2019-12-07] MEDS: Levothyroxine 0.05 Mg Tab PO SCH (06:58)
[2019-12-07] MEDS: Multivitamin Tab PO SCH (08:50)
--- NOTE | 2019-12-07 14:04 | Internal Medicine Prog Note ---
Internal Medicine Subjective - Subjective Service Date: 12/07/19 Patient seen and examined:: without staff Patient is:: awake Per staff patient has:: no adverse event, no episodes of fall Internal Medicine Objective - Results Result Diagrams: 12/05/19 09:30 11/22/19 09:17 Recent Labs: Laboratory Last Values WBC 5.5 K/uL (4.8-10.8) 11/17/19 12:31 RBC 4.73 MIL/uL (4.2-6.2) 11/17/19 12:31 Hgb 13.7 g/dL (12.0-16.0) 12/05/19 09:30 Hct 42.4 % (36-48) 12/05/19 09:30 MCV 88 fL (79.0-98.0) 11/17/19 12:31 MCH 27 pg (27-31) 11/17/19 12:31 MCHC 31 % (32-36) L 11/17/19 12:31 RDW 17.1 % (9.0-15.0) H 11/17/19 12:31 Plt Count 184 K/uL (130-430) 12/05/19 09:30 MPV 11.3 fl (7.4-10.4) H 11/17/19 12:31 Neut % (Auto) 59.2 % (40-70) 11/17/19 12:31 Lymph % (Auto) 28.9 % (20.5-51.5) 11/17/19 12:31 [place] % (Auto) 10.0 % (1.7-9.3) H 11/17/19 12:31 Eos % (Auto) 1.5 % (0-4) 11/17/19 12:31 Baso % (Auto) 0.4 % (0.0-2.0) 11/17/19 12:31 Neut # (Auto) 3.2 K/uL (1.8-7.7) 11/17/19 12:31 Lymph # (Auto) 1.6 K/uL (1.0-5.5) 11/17/19 12:31 [place] # (Auto) 0.5 K/uL (0.0-1.0) 11/17/19 12:31 Eos # (Auto) 0.1 K/uL (0.0-0.4) 11/17/19 12:31 Baso # (Auto) 0.0 K/uL (0.0-0.2) 11/17/19 12:31 PT 15.8 SECS (9.5-12.5) H 12/05/19 09:30 INR 1.57 (0.5-1.4) H 12/05/19 09:30 Sodium 140 mmol/L (136-145) 11/22/19 09:17 Potassium 4.6 mmol/L (3.5-5.1) 11/22/19 09:17 Chloride 108 mmol/L (98-107) H 11/22/19 09:17 Carbon Dioxide 26 mmol/L (23-29) 11/22/19 09:17 Anion Gap 11 (5-15) 11/22/19 09:17 BUN 22 mg/dL (8-21) H 11/22/19 09:17 Creatinine 1.11 mg/dL (0.70-1.30) 11/22/19 09:17 Glucose 67 mg/dL (70-99) L 11/22/19 09:17 POC Glucose 96 MG/DL (70 - 105) 11/16/19 03:10 Hemoglobin A1c 5.6 % (4.8-5.6) 11/17/19 12:49 Calcium 9.9 mg/dL (8.4-10.2) 11/22/19 09:17 Total Bilirubin 0.4 mg/dL (0.0-1.0) 11/22/19 09:17 AST 40 U/L (10-37) H 11/22/19 09:17 ALT 27 U/L (12-78) 11/22/19 09:17 Alkaline Phosphatase 119 U/L (46-116) H 11/22/19 09:17 Total Protein 6.9 g/dL (6.4-8.3) 11/22/19 09:17 Albumin 3.1 g/dL (3.4-5.0) L 11/22/19 09:17 Triglycerides 130 mg/dL (30-150) 11/17/19 12:31 Cholesterol 158 mg/dL (<200) 11/17/19 12:31 LDL Cholesterol 101 mg/dL (0-129) 11/17/19 12:31 HDL Cholesterol 42 mg/dL (>55) L 11/17/19 12:31 Coronavirus (PCR) NOT DETECTED (NOT DETECTD) 12/02/19 12:02 SARS Serology NEGATIVE (NEGATIVE) A* 12/06/19 14:14 - Physical Exam Vitals and I&O: Vital Signs Temp 97.1 F 12/07/19 06:08 Pulse 60 12/07/19 08:50 Resp 17 12/07/19 08:00 BP 130/74 12/07/19 08:50 Pulse Ox 95 12/07/19 06:08 Intake & Output 12/06/19 12/07/19 12/07/19 18:59 06:59 18:59 Intake Total 1200 240 Balance 1200 240 Intake: Oral 1200 240 Other: # Voids 4 # Bowel Movements 1 0 Stool Characteristics Formed Formed Formed Active Medications: Current Medications Acetaminophen (Tylenol) 650 mg PO Q4H PRN PRN Reason: Pain (Mild 1-3) Stop: 01/15/20 04:04 Last Admin: 11/26/19 21:18 Dose: 650 mg Acetaminophen (Tylenol Extra Strength) 1,000 mg PO Q6H PRN PRN Reason: Pain (Moderate 4-6) Stop: 01/15/20 04:04 Last Admin: 11/28/19 16:16 Dose: 1,000 mg Al Hydrox/Mg Hydrox/Simethicone (Maalox) 30 ml PO Q4HR PRN PRN Reason: GI DISTRESS Stop: 01/15/20 04:04 Atenolol (Tenormin) 25 mg PO DAILY CORNELIO Stop: 01/16/20 08:59 Last Admin: 12/07/19 08:50 Dose: 25 mg Atorvastatin Calcium (Lipitor) 40 mg PO HS CORNELIO; Protocol Stop: 02/03/20 20:59 Last Admin: 12/06/19 21:25 Dose: 40 mg Donepezil HCl (Aricept) 5 mg PO DAILY CORNELIO Stop: 01/21/20 08:59 Last Admin: 12/07/19 08:50 Dose: 5 mg Levothyroxine Sodium (Synthroid) 0.05 mg PO QDAC CORNELIO Stop: 01/16/20 07:29 Last Admin: 12/07/19 06:58 Dose: 0.05 mg Lorazepam (Ativan) 0.5 mg PO Q4HR PRN; Protocol PRN Reason: Anxiety Stop: 12/16/19 04:04 Last Admin: 11/21/19 08:24 Dose: 0.5 mg Magnesium Hydroxide (Milk Of Magnesia) 30 ml PO HS PRN PRN Reason: Constipation Multivitamins/Vitamin C (Theragran) 1 tab PO DAILY CORNELIO Stop: 01/15/20 08:59 Last Admin: 12/07/19 08:50 Dose: 1 tab Quetiapine Fumarate (Seroquel) 50 mg PO BID CORNELIO; Protocol Stop: 01/27/20 16:59 Last Admin: 12/07/19 08:50 Dose: 50 mg Warfarin Sodium (Coumadin) 5 mg PO 1300 CORNELIO; Protocol Stop: 01/26/20 12:59 Last Admin: 12/07/19 13:09 Dose: 5 mg Zolpidem Tartrate (Ambien) 5 mg PO HS PRN PRN Reason: Insomnia Stop: 01/15/20 04:52 Last Admin: 12/02/19 21:49 Dose: 5 mg HEENT: NC/AT, PERRLA Neck: Supple, No JVD Lungs: CTAB Cardiovascular: RRR, Normal S1, Normal S2 Abdomen: soft Extremities: clear Neurological: no change Internal Medicine Assmt/Plan - Assessment Assessment: 1. Coagulapathy 2. CAD 3. HTN - Plan Plan: coumadin 5 mg po daily INR slowly climbing to goal of 2-3. no obvious bleeding. no rectal bleeding no melena d/w r.n. reviewed complete medical records Nutritional Asmnt/Malnutr-PDOC - Dietary Evaluation Malnutrition Findings (Please click <Entered> for more info): Nutritional Asmnt/Malnutrition Start: 11/16/19 12: 33 Text: Status: Complete Freq: Protocol: Document 11/16/19 13:10 NENO (Rec: 11/16/19 13:14 NENO [id number]) Nutritional Asmnt/Malnutrition Patient General Information Nutritional Screening High Risk Diagnosis Acute Psychosis Pertinent Medical Hx/Surgical Hx HTN Subjective Information Consult: Poor nutrition, pt thin and underweight Pt is a 79-year-old female admitted on 11/15 d/t acute psychosis, agitation and striking out. Provided pt with an Ensure at 10am, visited pt at 12pm and she had drank the entire Ensure. Pt nodded she enjoyed it, pt did not use words to speak. Pt allowed me to do a limited nutrition focused physical examination as she was unable to completely sit up to view back areas. Adding Ensure Enlive TID at snack times. Nutrition Focused Physical Exam Head and Face (Severe Malnutrition) Orbital region: Slightly dark circles, somewhat hollow Buccal Region: Hollow, sunken cheeks Cheondoism region: Deep hallowing, scooping Upper Body (Mild to Moderate Malnutrition) Upper Arm Region: Some depth to pinch, not ample Clavicle Bone Region: Clavicle shows with some protrusion Acromion Bone Region: Shoulder to arm joints squared, bones prominent Ribs/Midaxillary Line (Normal) Thoracic and Lumbar Region: Chest is full and round with ribs not evident Minimal ability to visualize the iliac crest Lower Extremities (Mild to Moderate Malnutrition) Anterior thigh region: Slight depressions Patellar Region: Kneecap is more prominent Posterior Calf Region: Less- developed bulb of muscle Anthropometrics HT: 57 WT: 104 LB (47.27 kg) IBW: 135 LB (61.36 kg), 77% IBW BMI: 16.31 (underweight) GI/ Skin Integrity GI: WNL, Non-tender, Flat, Soft BM: Not Noted I/O: 120/Not Noted Skin: WNL Wilbert: 19 Diet Order: Cardiac Estimated Energy Needs: ( Underweight, CBW) 6152-7551 kcals (30-35 kcals/ kg) 55-60g Pro (1.2-1.3 g/kg) 3177-3664 ml (30-35 ml/kg) Current Diet Order/ Nutrition Support Cardiac Patient / S.O Can't verbalize diet edu Pertinent Medications Maalox (PRN), MOM (PRN), Theragran Pertinent Labs 11/13: PT 16.2, INR 1.64, Na 146, Cl 112, TSH 5.337, Free T4 0.85 Nutritional Hx/Data Height 1.7 m Height (Calculated Centimeters) 170.2 Current Weight (lbs) 47.174 kg Weight (Calculated Kilograms) 47.2 Weight (Calculated Grams) 94377.6 [place] Body Weight 135 LB (61.36 kg) % [place] Body Weight 77 Body Mass Index (BMI) 16.2 Weight Status Underweight GI Symptoms Last BM Not Noted Skin Integrity/Comment: Skin: WNL Wilbert: 19 Estimated Nutritional Goals BEE in Kcals: Using Current wt Calories/Kcals/Kg 30-35 Kcals Calculated 4532-8277 Protein: Using Current wt Protein g/k.2-1.3 Protein Calculated 55-60 Fluid: ml 9703-5781 ml (30-35 ml/kg) Nutritional Problem 2. Problem Problem Malnutrition Etiology r/t inadequate energy and protein intake Signs/Symptoms: aeb mild to moderate muscle and fat wasting noted on exam with some clavicle, Acromion, and kneecap protrusion, and slight bulb of muscle in calf region. 1. Problem Problem Underweight Etiology r/t chronic energy underconsumption Signs/Symptoms: aeb BMI >18.5 (16.31). Malnutrition Alert Body Fat Depletion (Non-Severe) Mild Depletion Muscle Mass (Non-Severe) Mild Depletion Is there a minimum of two criteria Yes selected? Query Text:Check all the applicable criteria. A minimum of two criteria are recommended for diagnosis of either severe or non-severe malnutrition. Malnutrition Related to Morbid Obesity Malnutrition related to morbid obesity No Intervention/Recommendation Recommendations by RD Increase Calorie Intake Comments 1.Continue cardiac diet as tolerated. 2.Add Ensure Enlive TID ( completed). 3.Nurse to encourage PO intake . 4.Weekly weights. Expected Outcomes/Goals Expected Outcomes/Goals 1.PO intake to meet 75% of estimated nutritional needs. 2.Gradual weight gain (~1.0 LB /week) trending toward IBW preferred. 3.Monitor PO intake, wt, nutrition related labs, and skin integrity. 4.F/U as moderate risk in 3-5 days, 11/18-11/20.
--- NOTE | 2019-12-08 01:34 | Progress Notes ---
DATE: 12/07/2019 Case was discussed with staff of the patient, reviewed records. The patient was supposed to have been discharged 2 days ago, but was to return because emt steam box operator had fever and not her, I misunderstood it yesterday. The patient had a test for SARS and it was negative. It was a serology test. The patient continues to do the same. She is not acting out in anyway dangerous. She is sleeping well. She is eating well. No side effects with the medication, no sedation, no nausea, no extrapyramidal symptoms. The patient will be going to [place], I am not sure if she can go today or some other day, but we are waiting for her to be medically cleared and the patient was seen by Dr. Grimm yesterday and no further recommendation. I will continue to work with the patient in group therapy, milieu therapy, adjust medication as needed. JOB# [id number] [email or web address]
[2019-12-08] MEDS: Levothyroxine 0.05 Mg Tab PO SCH (06:34)
[2019-12-08] MEDS: Multivitamin Tab PO SCH (08:26)
--- NOTE | 2019-12-08 14:07 | Internal Medicine Prog Note ---
Internal Medicine Subjective - Subjective Service Date: 12/08/19 Patient seen and examined:: without staff Patient is:: awake Per staff patient has:: no adverse event, no episodes of fall Internal Medicine Objective - Results Result Diagrams: 12/05/19 09:30 11/22/19 09:17 Recent Labs: Laboratory Last Values WBC 5.5 K/uL (4.8-10.8) 11/17/19 12:31 RBC 4.73 MIL/uL (4.2-6.2) 11/17/19 12:31 Hgb 13.7 g/dL (12.0-16.0) 12/05/19 09:30 Hct 42.4 % (36-48) 12/05/19 09:30 MCV 88 fL (79.0-98.0) 11/17/19 12:31 MCH 27 pg (27-31) 11/17/19 12:31 MCHC 31 % (32-36) L 11/17/19 12:31 RDW 17.1 % (9.0-15.0) H 11/17/19 12:31 Plt Count 184 K/uL (130-430) 12/05/19 09:30 MPV 11.3 fl (7.4-10.4) H 11/17/19 12:31 Neut % (Auto) 59.2 % (40-70) 11/17/19 12:31 Lymph % (Auto) 28.9 % (20.5-51.5) 11/17/19 12:31 [place] % (Auto) 10.0 % (1.7-9.3) H 11/17/19 12:31 Eos % (Auto) 1.5 % (0-4) 11/17/19 12:31 Baso % (Auto) 0.4 % (0.0-2.0) 11/17/19 12:31 Neut # (Auto) 3.2 K/uL (1.8-7.7) 11/17/19 12:31 Lymph # (Auto) 1.6 K/uL (1.0-5.5) 11/17/19 12:31 [place] # (Auto) 0.5 K/uL (0.0-1.0) 11/17/19 12:31 Eos # (Auto) 0.1 K/uL (0.0-0.4) 11/17/19 12:31 Baso # (Auto) 0.0 K/uL (0.0-0.2) 11/17/19 12:31 PT 15.8 SECS (9.5-12.5) H 12/05/19 09:30 INR 1.57 (0.5-1.4) H 12/05/19 09:30 Sodium 140 mmol/L (136-145) 11/22/19 09:17 Potassium 4.6 mmol/L (3.5-5.1) 11/22/19 09:17 Chloride 108 mmol/L (98-107) H 11/22/19 09:17 Carbon Dioxide 26 mmol/L (23-29) 11/22/19 09:17 Anion Gap 11 (5-15) 11/22/19 09:17 BUN 22 mg/dL (8-21) H 11/22/19 09:17 Creatinine 1.11 mg/dL (0.70-1.30) 11/22/19 09:17 Glucose 67 mg/dL (70-99) L 11/22/19 09:17 POC Glucose 96 MG/DL (70 - 105) 11/16/19 03:10 Hemoglobin A1c 5.6 % (4.8-5.6) 11/17/19 12:49 Calcium 9.9 mg/dL (8.4-10.2) 11/22/19 09:17 Total Bilirubin 0.4 mg/dL (0.0-1.0) 11/22/19 09:17 AST 40 U/L (10-37) H 11/22/19 09:17 ALT 27 U/L (12-78) 11/22/19 09:17 Alkaline Phosphatase 119 U/L (46-116) H 11/22/19 09:17 Total Protein 6.9 g/dL (6.4-8.3) 11/22/19 09:17 Albumin 3.1 g/dL (3.4-5.0) L 11/22/19 09:17 Triglycerides 130 mg/dL (30-150) 11/17/19 12:31 Cholesterol 158 mg/dL (<200) 11/17/19 12:31 LDL Cholesterol 101 mg/dL (0-129) 11/17/19 12:31 HDL Cholesterol 42 mg/dL (>55) L 11/17/19 12:31 Coronavirus (PCR) NOT DETECTED (NOT DETECTD) 12/02/19 12:02 SARS Serology NEGATIVE (NEGATIVE) A* 12/06/19 14:14 - Physical Exam Vitals and I&O: Vital Signs Temp 96.4 F 12/08/19 05:59 Pulse 86 12/08/19 08:27 Resp 17 12/08/19 08:00 BP 137/67 12/08/19 08:27 Pulse Ox 95 12/08/19 05:59 Intake & Output 12/07/19 12/08/19 12/08/19 18:59 06:59 18:59 Intake Total 1100 240 Balance 1100 240 Intake: Oral 1100 240 Other: # Voids 3 2 # Bowel Movements 0 Stool Characteristics Formed Formed Formed Active Medications: Current Medications Acetaminophen (Tylenol) 650 mg PO Q4H PRN PRN Reason: Pain (Mild 1-3) Stop: 01/15/20 04:04 Last Admin: 11/26/19 21:18 Dose: 650 mg Acetaminophen (Tylenol Extra Strength) 1,000 mg PO Q6H PRN PRN Reason: Pain (Moderate 4-6) Stop: 01/15/20 04:04 Last Admin: 11/28/19 16:16 Dose: 1,000 mg Al Hydrox/Mg Hydrox/Simethicone (Maalox) 30 ml PO Q4HR PRN PRN Reason: GI DISTRESS Stop: 01/15/20 04:04 Atenolol (Tenormin) 25 mg PO DAILY CORNELIO Stop: 01/16/20 08:59 Last Admin: 12/08/19 08:27 Dose: 25 mg Atorvastatin Calcium (Lipitor) 40 mg PO HS CORNELIO; Protocol Stop: 02/03/20 20:59 Last Admin: 12/07/19 20:59 Dose: 40 mg Donepezil HCl (Aricept) 5 mg PO DAILY CORNELIO Stop: 01/21/20 08:59 Last Admin: 12/08/19 08:26 Dose: 5 mg Levothyroxine Sodium (Synthroid) 0.05 mg PO QDAC CORNELIO Stop: 01/16/20 07:29 Last Admin: 12/08/19 06:34 Dose: 0.05 mg Lorazepam (Ativan) 0.5 mg PO Q4HR PRN; Protocol PRN Reason: Anxiety Stop: 12/16/19 04:04 Last Admin: 11/21/19 08:24 Dose: 0.5 mg Magnesium Hydroxide (Milk Of Magnesia) 30 ml PO HS PRN PRN Reason: Constipation Multivitamins/Vitamin C (Theragran) 1 tab PO DAILY CORNELIO Stop: 01/15/20 08:59 Last Admin: 12/08/19 08:26 Dose: 1 tab Quetiapine Fumarate (Seroquel) 50 mg PO BID CORNELIO; Protocol Stop: 01/27/20 16:59 Last Admin: 12/08/19 08:26 Dose: 50 mg Warfarin Sodium (Coumadin) 5 mg PO 1300 CORNELIO; Protocol Stop: 01/26/20 12:59 Last Admin: 12/08/19 13:40 Dose: 5 mg Zolpidem Tartrate (Ambien) 5 mg PO HS PRN PRN Reason: Insomnia Stop: 01/15/20 04:52 Last Admin: 12/02/19 21:49 Dose: 5 mg HEENT: NC/AT, PERRLA Neck: Supple, No JVD Lungs: CTAB Cardiovascular: RRR, Normal S1, Normal S2 Abdomen: soft Extremities: clear Neurological: no change Internal Medicine Assmt/Plan - Assessment Assessment: 1. Coagulapathy 2. CAD 3. HTN - Plan Plan: coumadin 5 mg po daily check INR, PT, PTT no obvious bleeding. no rectal bleeding no melena d/w r.n. reviewed complete medical records Nutritional Asmnt/Malnutr-PDOC - Dietary Evaluation Malnutrition Findings (Please click <Entered> for more info): Nutritional Asmnt/Malnutrition Start: 11/16/19 12: 33 Text: Status: Complete Freq: Protocol: Document 11/16/19 13:10 NENO (Rec: 11/16/19 13:14 NENO [id number]) Nutritional Asmnt/Malnutrition Patient General Information Nutritional Screening High Risk Diagnosis Acute Psychosis Pertinent Medical Hx/Surgical Hx HTN Subjective Information Consult: Poor nutrition, pt thin and underweight Pt is a 79-year-old female admitted on 11/15 d/t acute psychosis, agitation and striking out. Provided pt with an Ensure at 10am, visited pt at 12pm and she had drank the entire Ensure. Pt nodded she enjoyed it, pt did not use words to speak. Pt allowed me to do a limited nutrition focused physical examination as she was unable to completely sit up to view back areas. Adding Ensure Enlive TID at snack times. Nutrition Focused Physical Exam Head and Face (Severe Malnutrition) Orbital region: Slightly dark circles, somewhat hollow Buccal Region: Hollow, sunken cheeks [place] region: Deep hallowing, scooping Upper Body (Mild to Moderate Malnutrition) Upper Arm Region: Some depth to pinch, not ample Clavicle Bone Region: Clavicle shows with some protrusion Acromion Bone Region: Shoulder to arm joints squared, bones prominent Ribs/Midaxillary Line (Normal) Thoracic and Lumbar Region: Chest is full and round with ribs not evident Minimal ability to visualize the iliac crest Lower Extremities (Mild to Moderate Malnutrition) Anterior thigh region: Slight depressions Patellar Region: Kneecap is more prominent Posterior Calf Region: Less- developed bulb of muscle Anthropometrics HT: 57 WT: 104 LB (47.27 kg) IBW: 135 LB (61.36 kg), 77% IBW BMI: 16.31 (underweight) GI/ Skin Integrity GI: WNL, Non-tender, Flat, Soft BM: Not Noted I/O: 120/Not Noted Skin: WNL Wilbert: 19 Diet Order: Cardiac Estimated Energy Needs: ( Underweight, CBW) 8462-3462 kcals (30-35 kcals/ kg) 55-60g Pro (1.2-1.3 g/kg) 4102-9128 ml (30-35 ml/kg) Current Diet Order/ Nutrition Support Cardiac Patient / S.O Can't verbalize diet edu Pertinent Medications Maalox (PRN), MOM (PRN), Theragran Pertinent Labs 11/13: PT 16.2, INR 1.64, Na 146, Cl 112, TSH 5.337, Free T4 0.85 Nutritional Hx/Data Height 1.7 m Height (Calculated Centimeters) 170.2 Current Weight (lbs) 47.174 kg Weight (Calculated Kilograms) 47.2 Weight (Calculated Grams) 60335.6 [place] Body Weight 135 LB (61.36 kg) % [place] Body Weight 77 Body Mass Index (BMI) 16.2 Weight Status Underweight GI Symptoms Last BM Not Noted Skin Integrity/Comment: Skin: WNL Wilbert: 19 Estimated Nutritional Goals BEE in Kcals: Using Current wt Calories/Kcals/Kg 30-35 Kcals Calculated 1958-0150 Protein: Using Current wt Protein g/k.2-1.3 Protein Calculated 55-60 Fluid: ml 4011-3796 ml (30-35 ml/kg) Nutritional Problem 2. Problem Problem Malnutrition Etiology r/t inadequate energy and protein intake Signs/Symptoms: aeb mild to moderate muscle and fat wasting noted on exam with some clavicle, Acromion, and kneecap protrusion, and slight bulb of muscle in calf region. 1. Problem Problem Underweight Etiology r/t chronic energy underconsumption Signs/Symptoms: aeb BMI >18.5 (16.31). Malnutrition Alert Body Fat Depletion (Non-Severe) Mild Depletion Muscle Mass (Non-Severe) Mild Depletion Is there a minimum of two criteria Yes selected? Query Text:Check all the applicable criteria. A minimum of two criteria are recommended for diagnosis of either severe or non-severe malnutrition. Malnutrition Related to Morbid Obesity Malnutrition related to morbid obesity No Intervention/Recommendation Recommendations by RD Increase Calorie Intake Comments 1.Continue cardiac diet as tolerated. 2.Add Ensure Enlive TID ( completed). 3.Nurse to encourage PO intake . 4.Weekly weights. Expected Outcomes/Goals Expected Outcomes/Goals 1.PO intake to meet 75% of estimated nutritional needs. 2.Gradual weight gain (~1.0 LB /week) trending toward IBW preferred. 3.Monitor PO intake, wt, nutrition related labs, and skin integrity. 4.F/U as moderate risk in 3-5 days, 11/18-11/20.
--- NOTE | 2019-12-09 00:15 | Progress Notes ---
DATE: 12/08/2019 FOLLOW UP PROGRESS NOTE Case was discussed with staff of the patient, reviewed records. The patient continues to isolate herself in her room. . The patient is sleeping well, eating well, was still waiting for her to be medically cleared to go to [place] where she was supposed to be going few days ago; however, she returned back because of high temperature of one of the team members and she is sleeping well, eating well, can feed herself. She can ambulate. No side effects with the medication, no sedation, no nausea, no extrapyramidal symptoms. Will continue outpatient group therapy, milieu therapy, and adjust medications as needed. JOB# [id number] MARINA
[2019-12-09] MEDS: Levothyroxine 0.05 Mg Tab PO SCH (06:51)
[2019-12-09] MEDS: Multivitamin Tab PO SCH (08:33)
--- NOTE | 2019-12-09 10:35 | Internal Medicine Prog Note ---
Internal Medicine Subjective - Subjective Service Date: 12/09/19 Patient seen and examined:: without staff Patient is:: awake Per staff patient has:: no adverse event, no episodes of fall Internal Medicine Objective - Results Result Diagrams: 12/05/19 09:30 11/22/19 09:17 Recent Labs: Laboratory Last Values WBC 5.5 K/uL (4.8-10.8) 11/17/19 12:31 RBC 4.73 MIL/uL (4.2-6.2) 11/17/19 12:31 Hgb 13.7 g/dL (12.0-16.0) 12/05/19 09:30 Hct 42.4 % (36-48) 12/05/19 09:30 MCV 88 fL (79.0-98.0) 11/17/19 12:31 MCH 27 pg (27-31) 11/17/19 12:31 MCHC 31 % (32-36) L 11/17/19 12:31 RDW 17.1 % (9.0-15.0) H 11/17/19 12:31 Plt Count 184 K/uL (130-430) 12/05/19 09:30 MPV 11.3 fl (7.4-10.4) H 11/17/19 12:31 Neut % (Auto) 59.2 % (40-70) 11/17/19 12:31 Lymph % (Auto) 28.9 % (20.5-51.5) 11/17/19 12:31 [place] % (Auto) 10.0 % (1.7-9.3) H 11/17/19 12:31 Eos % (Auto) 1.5 % (0-4) 11/17/19 12:31 Baso % (Auto) 0.4 % (0.0-2.0) 11/17/19 12:31 Neut # (Auto) 3.2 K/uL (1.8-7.7) 11/17/19 12:31 Lymph # (Auto) 1.6 K/uL (1.0-5.5) 11/17/19 12:31 [place] # (Auto) 0.5 K/uL (0.0-1.0) 11/17/19 12:31 Eos # (Auto) 0.1 K/uL (0.0-0.4) 11/17/19 12:31 Baso # (Auto) 0.0 K/uL (0.0-0.2) 11/17/19 12:31 PT 15.8 SECS (9.5-12.5) H 12/05/19 09:30 INR 1.57 (0.5-1.4) H 12/05/19 09:30 Sodium 140 mmol/L (136-145) 11/22/19 09:17 Potassium 4.6 mmol/L (3.5-5.1) 11/22/19 09:17 Chloride 108 mmol/L (98-107) H 11/22/19 09:17 Carbon Dioxide 26 mmol/L (23-29) 11/22/19 09:17 Anion Gap 11 (5-15) 11/22/19 09:17 BUN 22 mg/dL (8-21) H 11/22/19 09:17 Creatinine 1.11 mg/dL (0.70-1.30) 11/22/19 09:17 Glucose 67 mg/dL (70-99) L 11/22/19 09:17 POC Glucose 96 MG/DL (70 - 105) 11/16/19 03:10 Hemoglobin A1c 5.6 % (4.8-5.6) 11/17/19 12:49 Calcium 9.9 mg/dL (8.4-10.2) 11/22/19 09:17 Total Bilirubin 0.4 mg/dL (0.0-1.0) 11/22/19 09:17 AST 40 U/L (10-37) H 11/22/19 09:17 ALT 27 U/L (12-78) 11/22/19 09:17 Alkaline Phosphatase 119 U/L (46-116) H 11/22/19 09:17 Total Protein 6.9 g/dL (6.4-8.3) 11/22/19 09:17 Albumin 3.1 g/dL (3.4-5.0) L 11/22/19 09:17 Triglycerides 130 mg/dL (30-150) 11/17/19 12:31 Cholesterol 158 mg/dL (<200) 11/17/19 12:31 LDL Cholesterol 101 mg/dL (0-129) 11/17/19 12:31 HDL Cholesterol 42 mg/dL (>55) L 11/17/19 12:31 Coronavirus (PCR) NOT DETECTED (NOT DETECTD) 12/02/19 12:02 SARS Serology NEGATIVE (NEGATIVE) A* 12/06/19 14:14 - Physical Exam Vitals and I&O: Vital Signs Temp 96.7 F 12/09/19 06:26 Pulse 56 12/09/19 08:32 Resp 19 12/09/19 06:26 BP 133/71 12/09/19 08:32 Pulse Ox 95 12/09/19 06:26 Intake & Output 12/08/19 12/09/19 12/09/19 18:59 06:59 18:59 Intake Total 900 144 Balance 900 144 Intake: Oral 900 144 Other: # Voids 3 1 # Bowel Movements 1 0 Stool Characteristics Formed Formed Active Medications: Current Medications Acetaminophen (Tylenol) 650 mg PO Q4H PRN PRN Reason: Pain (Mild 1-3) Stop: 01/15/20 04:04 Last Admin: 11/26/19 21:18 Dose: 650 mg Acetaminophen (Tylenol Extra Strength) 1,000 mg PO Q6H PRN PRN Reason: Pain (Moderate 4-6) Stop: 01/15/20 04:04 Last Admin: 11/28/19 16:16 Dose: 1,000 mg Al Hydrox/Mg Hydrox/Simethicone (Maalox) 30 ml PO Q4HR PRN PRN Reason: GI DISTRESS Stop: 01/15/20 04:04 Atenolol (Tenormin) 25 mg PO DAILY CORNELIO Stop: 01/16/20 08:59 Last Admin: 12/09/19 08:32 Dose: 25 mg Atorvastatin Calcium (Lipitor) 40 mg PO HS CORNELIO; Protocol Stop: 02/03/20 20:59 Last Admin: 12/08/19 21:24 Dose: 40 mg Donepezil HCl (Aricept) 5 mg PO DAILY CORNELIO Stop: 01/21/20 08:59 Last Admin: 12/09/19 08:33 Dose: 5 mg Levothyroxine Sodium (Synthroid) 0.05 mg PO QDAC CORNELIO Stop: 01/16/20 07:29 Last Admin: 12/09/19 06:51 Dose: 0.05 mg Lorazepam (Ativan) 0.5 mg PO Q4HR PRN; Protocol PRN Reason: Anxiety Stop: 12/16/19 04:04 Last Admin: 11/21/19 08:24 Dose: 0.5 mg Magnesium Hydroxide (Milk Of Magnesia) 30 ml PO HS PRN PRN Reason: Constipation Multivitamins/Vitamin C (Theragran) 1 tab PO DAILY CORNELIO Stop: 01/15/20 08:59 Last Admin: 12/09/19 08:33 Dose: 1 tab Quetiapine Fumarate (Seroquel) 50 mg PO BID CORNELIO; Protocol Stop: 01/27/20 16:59 Last Admin: 12/09/19 08:33 Dose: 50 mg Warfarin Sodium (Coumadin) 5 mg PO 1300 CORNELIO; Protocol Stop: 01/26/20 12:59 Last Admin: 12/08/19 13:40 Dose: 5 mg Zolpidem Tartrate (Ambien) 5 mg PO HS PRN PRN Reason: Insomnia Stop: 01/15/20 04:52 Last Admin: 12/02/19 21:49 Dose: 5 mg HEENT: NC/AT, PERRLA Neck: Supple, No JVD Lungs: CTAB Cardiovascular: RRR, Normal S1, Normal S2 Abdomen: soft Extremities: clear Neurological: no change Internal Medicine Assmt/Plan - Assessment Assessment: 1. Coagulapathy 2. CAD 3. HTN - Plan Plan: coumadin 5 mg po daily lab for INR, PTT not drawn discussed with nurse Proctor that lab needs to draw INR stat since patient is on coumadin. reviewed complete medical records Nutritional Asmnt/Malnutr-PDOC - Dietary Evaluation Malnutrition Findings (Please click <Entered> for more info): Nutritional Asmnt/Malnutrition Start: 11/16/19 12: 33 Text: Status: Complete Freq: Protocol: Document 11/16/19 13:10 NENO (Rec: 11/16/19 13:14 NENO [id number]) Nutritional Asmnt/Malnutrition Patient General Information Nutritional Screening High Risk Diagnosis Acute Psychosis Pertinent Medical Hx/Surgical Hx HTN Subjective Information Consult: Poor nutrition, pt thin and underweight Pt is a 79-year-old female admitted on 11/15 d/t acute psychosis, agitation and striking out. Provided pt with an Ensure at 10am, visited pt at 12pm and she had drank the entire Ensure. Pt nodded she enjoyed it, pt did not use words to speak. Pt allowed me to do a limited nutrition focused physical examination as she was unable to completely sit up to view back areas. Adding Ensure Enlive TID at snack times. Nutrition Focused Physical Exam Head and Face (Severe Malnutrition) Orbital region: Slightly dark circles, somewhat hollow Buccal Region: Hollow, sunken cheeks [place] region: Deep hallowing, scooping Upper Body (Mild to Moderate Malnutrition) Upper Arm Region: Some depth to pinch, not ample Clavicle Bone Region: Clavicle shows with some protrusion Acromion Bone Region: Shoulder to arm joints squared, bones prominent Ribs/Midaxillary Line (Normal) Thoracic and Lumbar Region: Chest is full and round with ribs not evident Minimal ability to visualize the iliac crest Lower Extremities (Mild to Moderate Malnutrition) Anterior thigh region: Slight depressions Patellar Region: Kneecap is more prominent Posterior Calf Region: Less- developed bulb of muscle Anthropometrics HT: 57 WT: 104 LB (47.27 kg) IBW: 135 LB (61.36 kg), 77% IBW BMI: 16.31 (underweight) GI/ Skin Integrity GI: WNL, Non-tender, Flat, Soft BM: Not Noted I/O: 120/Not Noted Skin: WNL Wilbert: 19 Diet Order: Cardiac Estimated Energy Needs: ( Underweight, CBW) 7652-5681 kcals (30-35 kcals/ kg) 55-60g Pro (1.2-1.3 g/kg) 2839-6399 ml (30-35 ml/kg) Current Diet Order/ Nutrition Support Cardiac Patient / S.O Can't verbalize diet edu Pertinent Medications Maalox (PRN), MOM (PRN), Theragran Pertinent Labs 11/13: PT 16.2, INR 1.64, Na 146, Cl 112, TSH 5.337, Free T4 0.85 Nutritional Hx/Data Height 1.7 m Height (Calculated Centimeters) 170.2 Current Weight (lbs) 47.174 kg Weight (Calculated Kilograms) 47.2 Weight (Calculated Grams) 44007.6 [place] Body Weight 135 LB (61.36 kg) % [place] Body Weight 77 Body Mass Index (BMI) 16.2 Weight Status Underweight GI Symptoms Last BM Not Noted Skin Integrity/Comment: Skin: WNL Wilbert: 19 Estimated Nutritional Goals BEE in Kcals: Using Current wt Calories/Kcals/Kg 30-35 Kcals Calculated 7648-1574 Protein: Using Current wt Protein g/k.2-1.3 Protein Calculated 55-60 Fluid: ml 2510-8992 ml (30-35 ml/kg) Nutritional Problem 2. Problem Problem Malnutrition Etiology r/t inadequate energy and protein intake Signs/Symptoms: aeb mild to moderate muscle and fat wasting noted on exam with some clavicle, Acromion, and kneecap protrusion, and slight bulb of muscle in calf region. 1. Problem Problem Underweight Etiology r/t chronic energy underconsumption Signs/Symptoms: aeb BMI >18.5 (16.31). Malnutrition Alert Body Fat Depletion (Non-Severe) Mild Depletion Muscle Mass (Non-Severe) Mild Depletion Is there a minimum of two criteria Yes selected? Query Text:Check all the applicable criteria. A minimum of two criteria are recommended for diagnosis of either severe or non-severe malnutrition. Malnutrition Related to Morbid Obesity Malnutrition related to morbid obesity No Intervention/Recommendation Recommendations by RD Increase Calorie Intake Comments 1.Continue cardiac diet as tolerated. 2.Add Ensure Enlive TID ( completed). 3.Nurse to encourage PO intake . 4.Weekly weights. Expected Outcomes/Goals Expected Outcomes/Goals 1.PO intake to meet 75% of estimated nutritional needs. 2.Gradual weight gain (~1.0 LB /week) trending toward IBW preferred. 3.Monitor PO intake, wt, nutrition related labs, and skin integrity. 4.F/U as moderate risk in 3-5 days, 11/18-11/20.
--- NOTE | 2019-12-09 11:13 | Progress Notes ---
DATE: 12/09/2019 SUBJECTIVE: An 79-year-old female, currently coming in from [facility], well known to this clinician. Unfortunately unable to speak with her. She is essentially nonverbal, does make some sounds. The patient has been here for quite some time, seems to be generally calmer. No overt agitation or escalation of behaviors. Resting comfortably, making some hand gestures in my direction. Apparently, the patient had a high temperature, is supposed to go to a [facility] facility. Medications reviewed. Labs reviewed. Vitals reviewed. Ongoing concerns for disorientation. No agitation. Discussed with staff, chart was reviewed. PLAN: We will continue to monitor. JOB# [id number]
[2019-12-09 14:44] LABS: INR 1.8 (0.5-1.4)
[2019-12-10] MEDS: Levothyroxine 0.05 Mg Tab PO SCH (06:45)
--- NOTE | 2019-12-10 07:12 | Progress Notes ---
DATE: 12/10/2019 SUBJECTIVE: An 79-year-old female, not really verbal, hard to understand, seems to have history of dementia, had been living with daughter. The patient likely approaching her baseline. No overt agitation or escalation of behaviors, waves when I see her. Not able to say much. Limited [id number], generally calmer. No agitation, no escalation of behaviors. Apparently, per staff, tearful on the unit, pending a safe disposition plan. Medications reviewed. Labs reviewed. Vitals were reviewed. ASSESSMENT: The patient likely at baseline. PLAN: We will continue to monitor, seems that the patient has been accepted to a [facility] facility. JOB# [id number]
[2019-12-10] MEDS: Multivitamin Tab PO SCH (08:19)
--- NOTE | 2019-12-10 12:06 | Internal Medicine Prog Note ---
Internal Medicine Subjective - Subjective Service Date: 12/10/19 Patient seen and examined:: without staff (no fevers, no cough, no chest pain, no sob) Patient is:: awake Per staff patient has:: no adverse event, no episodes of fall Internal Medicine Objective - Results Result Diagrams: 12/05/19 09:30 11/22/19 09:17 Recent Labs: Laboratory Last Values WBC 5.5 K/uL (4.8-10.8) 11/17/19 12:31 RBC 4.73 MIL/uL (4.2-6.2) 11/17/19 12:31 Hgb 13.7 g/dL (12.0-16.0) 12/05/19 09:30 Hct 42.4 % (36-48) 12/05/19 09:30 MCV 88 fL (79.0-98.0) 11/17/19 12:31 MCH 27 pg (27-31) 11/17/19 12:31 MCHC 31 % (32-36) L 11/17/19 12:31 RDW 17.1 % (9.0-15.0) H 11/17/19 12:31 Plt Count 184 K/uL (130-430) 12/05/19 09:30 MPV 11.3 fl (7.4-10.4) H 11/17/19 12:31 Neut % (Auto) 59.2 % (40-70) 11/17/19 12:31 Lymph % (Auto) 28.9 % (20.5-51.5) 11/17/19 12:31 [place] % (Auto) 10.0 % (1.7-9.3) H 11/17/19 12:31 Eos % (Auto) 1.5 % (0-4) 11/17/19 12:31 Baso % (Auto) 0.4 % (0.0-2.0) 11/17/19 12:31 Neut # (Auto) 3.2 K/uL (1.8-7.7) 11/17/19 12:31 Lymph # (Auto) 1.6 K/uL (1.0-5.5) 11/17/19 12:31 [place] # (Auto) 0.5 K/uL (0.0-1.0) 11/17/19 12:31 Eos # (Auto) 0.1 K/uL (0.0-0.4) 11/17/19 12:31 Baso # (Auto) 0.0 K/uL (0.0-0.2) 11/17/19 12:31 PT 18.0 SECS (9.5-12.5) H 12/09/19 12:55 INR 1.80 (0.5-1.4) H 12/09/19 12:55 Sodium 140 mmol/L (136-145) 11/22/19 09:17 Potassium 4.6 mmol/L (3.5-5.1) 11/22/19 09:17 Chloride 108 mmol/L (98-107) H 11/22/19 09:17 Carbon Dioxide 26 mmol/L (23-29) 11/22/19 09:17 Anion Gap 11 (5-15) 11/22/19 09:17 BUN 22 mg/dL (8-21) H 11/22/19 09:17 Creatinine 1.11 mg/dL (0.70-1.30) 11/22/19 09:17 Glucose 67 mg/dL (70-99) L 11/22/19 09:17 POC Glucose 96 MG/DL (70 - 105) 11/16/19 03:10 Hemoglobin A1c 5.6 % (4.8-5.6) 11/17/19 12:49 Calcium 9.9 mg/dL (8.4-10.2) 11/22/19 09:17 Total Bilirubin 0.4 mg/dL (0.0-1.0) 11/22/19 09:17 AST 40 U/L (10-37) H 11/22/19 09:17 ALT 27 U/L (12-78) 11/22/19 09:17 Alkaline Phosphatase 119 U/L (46-116) H 11/22/19 09:17 Total Protein 6.9 g/dL (6.4-8.3) 11/22/19 09:17 Albumin 3.1 g/dL (3.4-5.0) L 11/22/19 09:17 Triglycerides 130 mg/dL (30-150) 11/17/19 12:31 Cholesterol 158 mg/dL (<200) 11/17/19 12:31 LDL Cholesterol 101 mg/dL (0-129) 11/17/19 12:31 HDL Cholesterol 42 mg/dL (>55) L 11/17/19 12:31 Coronavirus (PCR) NOT DETECTED (NOT DETECTD) 12/02/19 12:02 SARS Serology NEGATIVE (NEGATIVE) A* 12/06/19 14:14 - Physical Exam Vitals and I&O: Vital Signs Temp 96.7 F 12/10/19 06:15 Pulse 52 12/10/19 08:20 Resp 20 12/10/19 07:43 BP 144/72 12/10/19 08:20 Pulse Ox 95 12/10/19 06:15 Intake & Output 12/09/19 12/10/19 12/10/19 18:59 06:59 18:59 Intake Total 1200 240 Balance 1200 240 Intake: Oral 1200 240 Other: # Voids 2 # Bowel Movements 1 Stool Characteristics Formed Active Medications: Current Medications Acetaminophen (Tylenol) 650 mg PO Q4H PRN PRN Reason: Pain (Mild 1-3) Stop: 01/15/20 04:04 Last Admin: 11/26/19 21:18 Dose: 650 mg Acetaminophen (Tylenol Extra Strength) 1,000 mg PO Q6H PRN PRN Reason: Pain (Moderate 4-6) Stop: 01/15/20 04:04 Last Admin: 11/28/19 16:16 Dose: 1,000 mg Al Hydrox/Mg Hydrox/Simethicone (Maalox) 30 ml PO Q4HR PRN PRN Reason: GI DISTRESS Stop: 01/15/20 04:04 Atenolol (Tenormin) 25 mg PO DAILY [facility] Stop: 01/16/20 08:59 Last Admin: 12/10/19 08:20 Dose: 25 mg Atorvastatin Calcium (Lipitor) 40 mg PO HS CORNELIO; Protocol Stop: 02/03/20 20:59 Last Admin: 12/09/19 21:01 Dose: 40 mg Donepezil HCl (Aricept) 5 mg PO DAILY [facility]ELIO Stop: 01/21/20 08:59 Last Admin: 12/10/19 08:19 Dose: 5 mg Levothyroxine Sodium (Synthroid) 0.05 mg PO QDAC CORNELIO Stop: 01/16/20 07:29 Last Admin: 12/10/19 06:45 Dose: 0.05 mg Lorazepam (Ativan) 0.5 mg PO Q4HR PRN; Protocol PRN Reason: Anxiety Stop: 12/16/19 04:04 Last Admin: 11/21/19 08:24 Dose: 0.5 mg Magnesium Hydroxide (Milk Of Magnesia) 30 ml PO HS PRN PRN Reason: Constipation Multivitamins/Vitamin C (Theragran) 1 tab PO DAILY CORNELIO Stop: 01/15/20 08:59 Last Admin: 12/10/19 08:19 Dose: 1 tab Quetiapine Fumarate (Seroquel) 50 mg PO BID CORNELIO; Protocol Stop: 01/27/20 16:59 Last Admin: 12/10/19 08:19 Dose: 50 mg Warfarin Sodium (Coumadin) 5 mg PO 1300 CORNELIO; Protocol Stop: 01/26/20 12:59 Last Admin: 12/09/19 13:45 Dose: 5 mg Zolpidem Tartrate (Ambien) 5 mg PO HS PRN PRN Reason: Insomnia Stop: 01/15/20 04:52 Last Admin: 12/02/19 21:49 Dose: 5 mg HEENT: NC/AT, PERRLA Neck: Supple, No JVD Lungs: CTAB Cardiovascular: RRR, Normal S1, Normal S2 Abdomen: soft Extremities: clear Neurological: no change Internal Medicine Assmt/Plan - Assessment Assessment: 1. Coagulapathy 2. CAD 3. HTN - Plan Plan: coumadin 5 mg po daily INR is 1.8. will repeat INR, PT, PTT in few days d/w r.n. reviewed complete medical records Nutritional Asmnt/Malnutr-PDOC - Dietary Evaluation Malnutrition Findings (Please click <Entered> for more info): Nutritional Asmnt/Malnutrition Start: 11/16/19 12: 33 Text: Status: Complete Freq: Protocol: Document 11/16/19 13:10 NENO (Rec: 11/16/19 13:14 NENO [id number]) Nutritional Asmnt/Malnutrition Patient General Information Nutritional Screening High Risk Diagnosis Acute Psychosis Pertinent Medical Hx/Surgical Hx HTN Subjective Information Consult: Poor nutrition, pt thin and underweight Pt is a 79-year-old female admitted on 11/15 d/t acute psychosis, agitation and striking out. Provided pt with an Ensure at 10am, visited pt at 12pm and she had drank the entire Ensure. Pt nodded she enjoyed it, pt did not use words to speak. Pt allowed me to do a limited nutrition focused physical examination as she was unable to completely sit up to view back areas. Adding Ensure Enlive TID at snack times. Nutrition Focused Physical Exam Head and Face (Severe Malnutrition) Orbital region: Slightly dark circles, somewhat hollow Buccal Region: Hollow, sunken cheeks Protestant region: Deep hallowing, scooping Upper Body (Mild to Moderate Malnutrition) Upper Arm Region: Some depth to pinch, not ample Clavicle Bone Region: Clavicle shows with some protrusion Acromion Bone Region: Shoulder to arm joints squared, bones prominent Ribs/Midaxillary Line (Normal) Thoracic and Lumbar Region: Chest is full and round with ribs not evident Minimal ability to visualize the iliac crest Lower Extremities (Mild to Moderate Malnutrition) Anterior thigh region: Slight depressions Patellar Region: Kneecap is more prominent Posterior Calf Region: Less- developed bulb of muscle Anthropometrics HT: 57 WT: 104 LB (47.27 kg) IBW: 135 LB (61.36 kg), 77% IBW BMI: 16.31 (underweight) GI/ Skin Integrity GI: WNL, Non-tender, Flat, Soft BM: Not Noted I/O: 120/Not Noted Skin: WNL Wilbert: 19 Diet Order: Cardiac Estimated Energy Needs: ( Underweight, CBW) 3763-7518 kcals (30-35 kcals/ kg) 55-60g Pro (1.2-1.3 g/kg) 2682-1752 ml (30-35 ml/kg) Current Diet Order/ Nutrition Support Cardiac Patient / S.O Can't verbalize diet edu Pertinent Medications Maalox (PRN), MOM (PRN), Theragran Pertinent Labs 11/13: PT 16.2, INR 1.64, Na 146, Cl 112, TSH 5.337, Free T4 0.85 Nutritional Hx/Data Height 1.7 m Height (Calculated Centimeters) 170.2 Current Weight (lbs) 47.174 kg Weight (Calculated Kilograms) 47.2 Weight (Calculated Grams) 06520.6 [place] Body Weight 135 LB (61.36 kg) % [place] Body Weight 77 Body Mass Index (BMI) 16.2 Weight Status Underweight GI Symptoms Last BM Not Noted Skin Integrity/Comment: Skin: WNL Wilbert: 19 Estimated Nutritional Goals BEE in Kcals: Using Current wt Calories/Kcals/Kg 30-35 Kcals Calculated 0068-3143 Protein: Using Current wt Protein g/k.2-1.3 Protein Calculated 55-60 Fluid: ml 7445-0343 ml (30-35 ml/kg) Nutritional Problem 2. Problem Problem Malnutrition Etiology r/t inadequate energy and protein intake Signs/Symptoms: aeb mild to moderate muscle and fat wasting noted on exam with some clavicle, Acromion, and kneecap protrusion, and slight bulb of muscle in calf region. 1. Problem Problem Underweight Etiology r/t chronic energy underconsumption Signs/Symptoms: aeb BMI >18.5 (16.31). Malnutrition Alert Body Fat Depletion (Non-Severe) Mild Depletion Muscle Mass (Non-Severe) Mild Depletion Is there a minimum of two criteria Yes selected? Query Text:Check all the applicable criteria. A minimum of two criteria are recommended for diagnosis of either severe or non-severe malnutrition. Malnutrition Related to Morbid Obesity Malnutrition related to morbid obesity No Intervention/Recommendation Recommendations by RD Increase Calorie Intake Comments 1.Continue cardiac diet as tolerated. 2.Add Ensure Enlive TID ( completed). 3.Nurse to encourage PO intake . 4.Weekly weights. Expected Outcomes/Goals Expected Outcomes/Goals 1.PO intake to meet 75% of estimated nutritional needs. 2.Gradual weight gain (~1.0 LB /week) trending toward IBW preferred. 3.Monitor PO intake, wt, nutrition related labs, and skin integrity. 4.F/U as moderate risk in 3-5 days, 11/18-11/20.
[2019-12-11] MEDS: Levothyroxine 0.05 Mg Tab PO SCH (06:38)
[2019-12-11] MEDS: Multivitamin Tab PO SCH (09:01)
--- NOTE | 2019-12-11 12:52 | Internal Medicine Prog Note ---
Internal Medicine Subjective - Subjective Service Date: 12/11/19 Patient seen and examined:: without staff Patient is:: awake Per staff patient has:: no adverse event, no episodes of fall Internal Medicine Objective - Results Result Diagrams: 12/05/19 09:30 11/22/19 09:17 Recent Labs: Laboratory Last Values WBC 5.5 K/uL (4.8-10.8) 11/17/19 12:31 RBC 4.73 MIL/uL (4.2-6.2) 11/17/19 12:31 Hgb 13.7 g/dL (12.0-16.0) 12/05/19 09:30 Hct 42.4 % (36-48) 12/05/19 09:30 MCV 88 fL (79.0-98.0) 11/17/19 12:31 MCH 27 pg (27-31) 11/17/19 12:31 MCHC 31 % (32-36) L 11/17/19 12:31 RDW 17.1 % (9.0-15.0) H 11/17/19 12:31 Plt Count 184 K/uL (130-430) 12/05/19 09:30 MPV 11.3 fl (7.4-10.4) H 11/17/19 12:31 Neut % (Auto) 59.2 % (40-70) 11/17/19 12:31 Lymph % (Auto) 28.9 % (20.5-51.5) 11/17/19 12:31 [place] % (Auto) 10.0 % (1.7-9.3) H 11/17/19 12:31 Eos % (Auto) 1.5 % (0-4) 11/17/19 12:31 Baso % (Auto) 0.4 % (0.0-2.0) 11/17/19 12:31 Neut # (Auto) 3.2 K/uL (1.8-7.7) 11/17/19 12:31 Lymph # (Auto) 1.6 K/uL (1.0-5.5) 11/17/19 12:31 [place] # (Auto) 0.5 K/uL (0.0-1.0) 11/17/19 12:31 Eos # (Auto) 0.1 K/uL (0.0-0.4) 11/17/19 12:31 Baso # (Auto) 0.0 K/uL (0.0-0.2) 11/17/19 12:31 PT 18.0 SECS (9.5-12.5) H 12/09/19 12:55 INR 1.80 (0.5-1.4) H 12/09/19 12:55 Sodium 140 mmol/L (136-145) 11/22/19 09:17 Potassium 4.6 mmol/L (3.5-5.1) 11/22/19 09:17 Chloride 108 mmol/L (98-107) H 11/22/19 09:17 Carbon Dioxide 26 mmol/L (23-29) 11/22/19 09:17 Anion Gap 11 (5-15) 11/22/19 09:17 BUN 22 mg/dL (8-21) H 11/22/19 09:17 Creatinine 1.11 mg/dL (0.70-1.30) 11/22/19 09:17 Glucose 67 mg/dL (70-99) L 11/22/19 09:17 POC Glucose 96 MG/DL (70 - 105) 11/16/19 03:10 Hemoglobin A1c 5.6 % (4.8-5.6) 11/17/19 12:49 Calcium 9.9 mg/dL (8.4-10.2) 11/22/19 09:17 Total Bilirubin 0.4 mg/dL (0.0-1.0) 11/22/19 09:17 AST 40 U/L (10-37) H 11/22/19 09:17 ALT 27 U/L (12-78) 11/22/19 09:17 Alkaline Phosphatase 119 U/L (46-116) H 11/22/19 09:17 Total Protein 6.9 g/dL (6.4-8.3) 11/22/19 09:17 Albumin 3.1 g/dL (3.4-5.0) L 11/22/19 09:17 Triglycerides 130 mg/dL (30-150) 11/17/19 12:31 Cholesterol 158 mg/dL (<200) 11/17/19 12:31 LDL Cholesterol 101 mg/dL (0-129) 11/17/19 12:31 HDL Cholesterol 42 mg/dL (>55) L 11/17/19 12:31 Coronavirus (PCR) NOT DETECTED (NOT DETECTD) 12/02/19 12:02 SARS Serology NEGATIVE (NEGATIVE) A* 12/06/19 14:14 - Physical Exam Vitals and I&O: Vital Signs Temp 98.3 F 12/11/19 06:43 Pulse 61 12/11/19 09:01 Resp 19 12/11/19 06:43 BP 135/73 12/11/19 09:01 Pulse Ox 97 12/11/19 06:43 Intake & Output 12/10/19 12/11/19 12/11/19 18:59 06:59 18:59 Intake Total 950 120 Balance 950 120 Intake: Oral 950 120 Other: # Voids 4 1 # Bowel Movements 1 0 Active Medications: Current Medications Acetaminophen (Tylenol) 650 mg PO Q4H PRN PRN Reason: Pain (Mild 1-3) Stop: 01/15/20 04:04 Last Admin: 11/26/19 21:18 Dose: 650 mg Acetaminophen (Tylenol Extra Strength) 1,000 mg PO Q6H PRN PRN Reason: Pain (Moderate 4-6) Stop: 01/15/20 04:04 Last Admin: 11/28/19 16:16 Dose: 1,000 mg Al Hydrox/Mg Hydrox/Simethicone (Maalox) 30 ml PO Q4HR PRN PRN Reason: GI DISTRESS Stop: 01/15/20 04:04 Atenolol (Tenormin) 25 mg PO DAILY CORNELIO Stop: 01/16/20 08:59 Last Admin: 12/11/19 09:01 Dose: 25 mg Atorvastatin Calcium (Lipitor) 40 mg PO HS CORNELIO; Protocol Stop: 02/03/20 20:59 Last Admin: 12/10/19 20:56 Dose: 40 mg Donepezil HCl (Aricept) 5 mg PO DAILY [facility] Stop: 01/21/20 08:59 Last Admin: 12/11/19 09:01 Dose: 5 mg Levothyroxine Sodium (Synthroid) 0.05 mg PO QDAC CORNELIO Stop: 01/16/20 07:29 Last Admin: 12/11/19 06:38 Dose: 0.05 mg Lorazepam (Ativan) 0.5 mg PO Q4HR PRN; Protocol PRN Reason: Anxiety Stop: 12/16/19 04:04 Last Admin: 11/21/19 08:24 Dose: 0.5 mg Magnesium Hydroxide (Milk Of Magnesia) 30 ml PO HS PRN PRN Reason: Constipation Multivitamins/Vitamin C (Theragran) 1 tab PO DAILY [facility]ELIO Stop: 01/15/20 08:59 Last Admin: 12/11/19 09:01 Dose: 1 tab Quetiapine Fumarate (Seroquel) 50 mg PO BID CORNELIO; Protocol Stop: 01/27/20 16:59 Last Admin: 12/11/19 09:01 Dose: 50 mg Warfarin Sodium (Coumadin) 5 mg PO 1300 CORNELIO; Protocol Stop: 01/26/20 12:59 Last Admin: 12/10/19 13:24 Dose: 5 mg Zolpidem Tartrate (Ambien) 5 mg PO HS PRN PRN Reason: Insomnia Stop: 01/15/20 04:52 Last Admin: 12/02/19 21:49 Dose: 5 mg HEENT: NC/AT, PERRLA Neck: Supple, No JVD Lungs: CTAB Cardiovascular: RRR, Normal S1, Normal S2 Abdomen: soft Extremities: clear Neurological: no change Internal Medicine Assmt/Plan - Assessment Assessment: 1. Coagulapathy 2. CAD 3. HTN - Plan Plan: coumadin 5 mg po daily INR is 1.8. will repeat INR, PT, PTT in few days d/w r.n. reviewed complete medical records Nutritional Asmnt/Malnutr-PDOC - Dietary Evaluation Malnutrition Findings (Please click <Entered> for more info): Nutritional Asmnt/Malnutrition Start: 11/16/19 12: 33 Text: Status: Complete Freq: Protocol: Document 11/16/19 13:10 NENO (Rec: 11/16/19 13:14 NENO [id number]) Nutritional Asmnt/Malnutrition Patient General Information Nutritional Screening High Risk Diagnosis Acute Psychosis Pertinent Medical Hx/Surgical Hx HTN Subjective Information Consult: Poor nutrition, pt thin and underweight Pt is a 79-year-old female admitted on 11/15 d/t acute psychosis, agitation and striking out. Provided pt with an Ensure at 10am, visited pt at 12pm and she had drank the entire Ensure. Pt nodded she enjoyed it, pt did not use words to speak. Pt allowed me to do a limited nutrition focused physical examination as she was unable to completely sit up to view back areas. Adding Ensure Enlive TID at snack times. Nutrition Focused Physical Exam Head and Face (Severe Malnutrition) Orbital region: Slightly dark circles, somewhat hollow Buccal Region: Hollow, sunken cheeks Catholic region: Deep hallowing, scooping Upper Body (Mild to Moderate Malnutrition) Upper Arm Region: Some depth to pinch, not ample Clavicle Bone Region: Clavicle shows with some protrusion Acromion Bone Region: Shoulder to arm joints squared, bones prominent Ribs/Midaxillary Line (Normal) Thoracic and Lumbar Region: Chest is full and round with ribs not evident Minimal ability to visualize the iliac crest Lower Extremities (Mild to Moderate Malnutrition) Anterior thigh region: Slight depressions Patellar Region: Kneecap is more prominent Posterior Calf Region: Less- developed bulb of muscle Anthropometrics HT: 57 WT: 104 LB (47.27 kg) IBW: 135 LB (61.36 kg), 77% IBW BMI: 16.31 (underweight) GI/ Skin Integrity GI: WNL, Non-tender, Flat, Soft BM: Not Noted I/O: 120/Not Noted Skin: WNL Wilbert: 19 Diet Order: Cardiac Estimated Energy Needs: ( Underweight, CBW) 3165-3720 kcals (30-35 kcals/ kg) 55-60g Pro (1.2-1.3 g/kg) 8064-4790 ml (30-35 ml/kg) Current Diet Order/ Nutrition Support Cardiac Patient / S.O Can't verbalize diet edu Pertinent Medications Maalox (PRN), MOM (PRN), Theragran Pertinent Labs 11/13: PT 16.2, INR 1.64, Na 146, Cl 112, TSH 5.337, Free T4 0.85 Nutritional Hx/Data Height 1.7 m Height (Calculated Centimeters) 170.2 Current Weight (lbs) 47.174 kg Weight (Calculated Kilograms) 47.2 Weight (Calculated Grams) 22627.6 [place] Body Weight 135 LB (61.36 kg) % [place] Body Weight 77 Body Mass Index (BMI) 16.2 Weight Status Underweight GI Symptoms Last BM Not Noted Skin Integrity/Comment: Skin: WNL Wilbert: 19 Estimated Nutritional Goals BEE in Kcals: Using Current wt Calories/Kcals/Kg 30-35 Kcals Calculated 0009-2961 Protein: Using Current wt Protein g/k.2-1.3 Protein Calculated 55-60 Fluid: ml 8684-5136 ml (30-35 ml/kg) Nutritional Problem 2. Problem Problem Malnutrition Etiology r/t inadequate energy and protein intake Signs/Symptoms: aeb mild to moderate muscle and fat wasting noted on exam with some clavicle, Acromion, and kneecap protrusion, and slight bulb of muscle in calf region. 1. Problem Problem Underweight Etiology r/t chronic energy underconsumption Signs/Symptoms: aeb BMI >18.5 (16.31). Malnutrition Alert Body Fat Depletion (Non-Severe) Mild Depletion Muscle Mass (Non-Severe) Mild Depletion Is there a minimum of two criteria Yes selected? Query Text:Check all the applicable criteria. A minimum of two criteria are recommended for diagnosis of either severe or non-severe malnutrition. Malnutrition Related to Morbid Obesity Malnutrition related to morbid obesity No Intervention/Recommendation Recommendations by RD Increase Calorie Intake Comments 1.Continue cardiac diet as tolerated. 2.Add Ensure Enlive TID ( completed). 3.Nurse to encourage PO intake . 4.Weekly weights. Expected Outcomes/Goals Expected Outcomes/Goals 1.PO intake to meet 75% of estimated nutritional needs. 2.Gradual weight gain (~1.0 LB /week) trending toward IBW preferred. 3.Monitor PO intake, wt, nutrition related labs, and skin integrity. 4.F/U as moderate risk in 3-5 days, 11/18-11/20.
--- NOTE | 2019-12-11 20:35 | Discharge Summary ---
DATE OF DISCHARGE: 12/11/2019 IDENTIFYING INFORMATION: The patient is an 79-year-old female. HISTORY OF PRESENT ILLNESS: The patient was evaluated by [facility], Dr. Hinkle because of agitation and irritability. Basically she was brought into the Emergency Room from her home because of combative behavior, erratic behavior. The patient is nonverbal according to the family and the EMS reported the patient has old bruises to her chest when Dr. Hinkle was interviewing the patient, she was hitting her chest with her fist. The patient lives with her daughter and also it seems that her daughter had some psychiatric issue. According to the Emergency Room staff, the patient was unable to communicate at all and she was hitting her chest with a fist. The patient also diagnosed with dementia. No substance abuse problem. COURSE IN THE HOSPITAL: The patient was diagnosed with dementia with behavior disturbance and psychotic feature. COURSE IN THE HOSPITAL: The patient was started on medication, Aricept 5 mg at bedtime, Seroquel 50 mg twice a day. At the beginning, it was a smaller dose that she will continue multivitamins, magnesium, levothyroxine, atorvastatin, atenolol as well as she was not acting anyway dangerous prior to her discharge last week; however, she came back because apparently she was going to [facility] and one of the EMT workers have a temperature, so the staff at [facility] said they are not taking her, so she was sent back. However, now they said they will in take her. The patient has APS case open, they are investigating because of bruises on her chest. However, the patient as she was doing well. She was not acting out in anyway dangerous. She was sleeping well, eating well. We felt she could be discharged back to [facility] until the investigation is done by APS. CONDITION UPON DISCHARGE: The patient can take care of herself. She can bathe herself, feed herself, dress herself. She cannot function very well socially because she is nonverbal. The patient will follow up with the psychiatrist, primary care physician and therapist. FINAL DIAGNOSES: Dementia with behavior disturbance and psychosis. MEDICAL DIAGNOSES: Deferred to the medical doctor. EXPECTED OUTCOME: Stable. JOB# [id number] [facility]
[2019-12-12] MEDS: Levothyroxine 0.05 Mg Tab PO SCH (06:37)
[2019-12-12] MEDS: Multivitamin Tab PO SCH (08:00)
--- NOTE | 2019-12-12 14:30 | Internal Medicine Prog Note ---
Internal Medicine Subjective - Subjective Service Date: 12/12/19 Patient seen and examined:: without staff Patient is:: awake Per staff patient has:: no adverse event, no episodes of fall Internal Medicine Objective - Results Result Diagrams: 12/05/19 09:30 11/22/19 09:17 Recent Labs: Laboratory Last Values WBC 5.5 K/uL (4.8-10.8) 11/17/19 12:31 RBC 4.73 MIL/uL (4.2-6.2) 11/17/19 12:31 Hgb 13.7 g/dL (12.0-16.0) 12/05/19 09:30 Hct 42.4 % (36-48) 12/05/19 09:30 MCV 88 fL (79.0-98.0) 11/17/19 12:31 MCH 27 pg (27-31) 11/17/19 12:31 MCHC 31 % (32-36) L 11/17/19 12:31 RDW 17.1 % (9.0-15.0) H 11/17/19 12:31 Plt Count 184 K/uL (130-430) 12/05/19 09:30 MPV 11.3 fl (7.4-10.4) H 11/17/19 12:31 Neut % (Auto) 59.2 % (40-70) 11/17/19 12:31 Lymph % (Auto) 28.9 % (20.5-51.5) 11/17/19 12:31 [place] % (Auto) 10.0 % (1.7-9.3) H 11/17/19 12:31 Eos % (Auto) 1.5 % (0-4) 11/17/19 12:31 Baso % (Auto) 0.4 % (0.0-2.0) 11/17/19 12:31 Neut # (Auto) 3.2 K/uL (1.8-7.7) 11/17/19 12:31 Lymph # (Auto) 1.6 K/uL (1.0-5.5) 11/17/19 12:31 [place] # (Auto) 0.5 K/uL (0.0-1.0) 11/17/19 12:31 Eos # (Auto) 0.1 K/uL (0.0-0.4) 11/17/19 12:31 Baso # (Auto) 0.0 K/uL (0.0-0.2) 11/17/19 12:31 PT 18.0 SECS (9.5-12.5) H 12/09/19 12:55 INR 1.80 (0.5-1.4) H 12/09/19 12:55 Sodium 140 mmol/L (136-145) 11/22/19 09:17 Potassium 4.6 mmol/L (3.5-5.1) 11/22/19 09:17 Chloride 108 mmol/L (98-107) H 11/22/19 09:17 Carbon Dioxide 26 mmol/L (23-29) 11/22/19 09:17 Anion Gap 11 (5-15) 11/22/19 09:17 BUN 22 mg/dL (8-21) H 11/22/19 09:17 Creatinine 1.11 mg/dL (0.70-1.30) 11/22/19 09:17 Glucose 67 mg/dL (70-99) L 11/22/19 09:17 POC Glucose 96 MG/DL (70 - 105) 11/16/19 03:10 Hemoglobin A1c 5.6 % (4.8-5.6) 11/17/19 12:49 Calcium 9.9 mg/dL (8.4-10.2) 11/22/19 09:17 Total Bilirubin 0.4 mg/dL (0.0-1.0) 11/22/19 09:17 AST 40 U/L (10-37) H 11/22/19 09:17 ALT 27 U/L (12-78) 11/22/19 09:17 Alkaline Phosphatase 119 U/L (46-116) H 11/22/19 09:17 Total Protein 6.9 g/dL (6.4-8.3) 11/22/19 09:17 Albumin 3.1 g/dL (3.4-5.0) L 11/22/19 09:17 Triglycerides 130 mg/dL (30-150) 11/17/19 12:31 Cholesterol 158 mg/dL (<200) 11/17/19 12:31 LDL Cholesterol 101 mg/dL (0-129) 11/17/19 12:31 HDL Cholesterol 42 mg/dL (>55) L 11/17/19 12:31 Coronavirus (PCR) NOT DETECTED (NOT DETECTD) 12/02/19 12:02 SARS Serology NEGATIVE (NEGATIVE) A* 12/06/19 14:14 - Physical Exam Vitals and I&O: Vital Signs Temp 97.5 F 12/12/19 11:57 Pulse 60 12/12/19 11:57 Resp 17 12/12/19 11:57 BP 130/73 12/12/19 11:57 Pulse Ox 99 12/12/19 11:57 Intake & Output 12/11/19 12/12/19 12/12/19 18:59 06:59 18:59 Intake Total 1100 Balance 1100 Intake: Oral 1100 Other: # Voids 2 # Bowel Movements 0 Stool Characteristics Formed Active Medications: Current Medications Acetaminophen (Tylenol) 650 mg PO Q4H PRN PRN Reason: Pain (Mild 1-3) Stop: 01/15/20 04:04 Last Admin: 11/26/19 21:18 Dose: 650 mg Acetaminophen (Tylenol Extra Strength) 1,000 mg PO Q6H PRN PRN Reason: Pain (Moderate 4-6) Stop: 01/15/20 04:04 Last Admin: 11/28/19 16:16 Dose: 1,000 mg Al Hydrox/Mg Hydrox/Simethicone (Maalox) 30 ml PO Q4HR PRN PRN Reason: GI DISTRESS Stop: 01/15/20 04:04 Atenolol (Tenormin) 25 mg PO DAILY CORNELIO Stop: 01/16/20 08:59 Last Admin: 12/12/19 08:00 Dose: 25 mg Atorvastatin Calcium (Lipitor) 40 mg PO HS CORNELIO; Protocol Stop: 02/03/20 20:59 Last Admin: 12/11/19 21:37 Dose: 40 mg Donepezil HCl (Aricept) 5 mg PO DAILY CORNELIO Stop: 01/21/20 08:59 Last Admin: 12/12/19 08:00 Dose: 5 mg Levothyroxine Sodium (Synthroid) 0.05 mg PO QDAC CORNELIO Stop: 01/16/20 07:29 Last Admin: 12/12/19 06:37 Dose: 0.05 mg Lorazepam (Ativan) 0.5 mg PO Q4HR PRN; Protocol PRN Reason: Anxiety Stop: 12/16/19 04:04 Last Admin: 11/21/19 08:24 Dose: 0.5 mg Magnesium Hydroxide (Milk Of Magnesia) 30 ml PO HS PRN PRN Reason: Constipation Last Admin: 12/12/19 11:08 Dose: 30 ml Multivitamins/Vitamin C (Theragran) 1 tab PO DAILY CORNELIO Stop: 01/15/20 08:59 Last Admin: 12/12/19 08:00 Dose: 1 tab Quetiapine Fumarate (Seroquel) 50 mg PO BID CORNELIO; Protocol Stop: 01/27/20 16:59 Last Admin: 12/12/19 08:00 Dose: 50 mg Warfarin Sodium (Coumadin) 5 mg PO 1300 CORNELIO; Protocol Stop: 01/26/20 12:59 Last Admin: 12/12/19 12:48 Dose: 5 mg Zolpidem Tartrate (Ambien) 5 mg PO HS PRN PRN Reason: Insomnia Stop: 01/15/20 04:52 Last Admin: 12/02/19 21:49 Dose: 5 mg HEENT: NC/AT, PERRLA Neck: Supple, No JVD Lungs: CTAB Cardiovascular: RRR, Normal S1, Normal S2 Abdomen: soft Extremities: clear Neurological: no change Internal Medicine Assmt/Plan - Assessment Assessment: 1. Coagulapathy 2. CAD 3. HTN - Plan Plan: coumadin 5 mg po daily INR is 1.8. check INR, PT, PTT d/w r.n. reviewed complete medical records Nutritional Asmnt/Malnutr-PDOC - Dietary Evaluation Malnutrition Findings (Please click <Entered> for more info): Nutritional Asmnt/Malnutrition Start: 11/16/19 12: 33 Text: Status: Complete Freq: Protocol: Document 11/16/19 13:10 NENO (Rec: 11/16/19 13:14 [id number] [id number]) Nutritional Asmnt/Malnutrition Patient General Information Nutritional Screening High Risk Diagnosis Acute Psychosis Pertinent Medical Hx/Surgical Hx HTN Subjective Information Consult: Poor nutrition, pt thin and underweight Pt is a 79-year-old female admitted on 11/15 d/t acute psychosis, agitation and striking out. Provided pt with an Ensure at 10am, visited pt at 12pm and she had drank the entire Ensure. Pt nodded she enjoyed it, pt did not use words to speak. Pt allowed me to do a limited nutrition focused physical examination as she was unable to completely sit up to view back areas. Adding Ensure Enlive TID at snack times. Nutrition Focused Physical Exam Head and Face (Severe Malnutrition) Orbital region: Slightly dark circles, somewhat hollow Buccal Region: Hollow, sunken cheeks Taoism region: Deep hallowing, scooping Upper Body (Mild to Moderate Malnutrition) Upper Arm Region: Some depth to pinch, not ample Clavicle Bone Region: Clavicle shows with some protrusion Acromion Bone Region: Shoulder to arm joints squared, bones prominent Ribs/Midaxillary Line (Normal) Thoracic and Lumbar Region: Chest is full and round with ribs not evident Minimal ability to visualize the iliac crest Lower Extremities (Mild to Moderate Malnutrition) Anterior thigh region: Slight depressions Patellar Region: Kneecap is more prominent Posterior Calf Region: Less- developed bulb of muscle Anthropometrics HT: 57 WT: 104 LB (47.27 kg) IBW: 135 LB (61.36 kg), 77% IBW BMI: 16.31 (underweight) GI/ Skin Integrity GI: WNL, Non-tender, Flat, Soft BM: Not Noted I/O: 120/Not Noted Skin: WNL Wilbert: 19 Diet Order: Cardiac Estimated Energy Needs: ( Underweight, CBW) 4418-2380 kcals (30-35 kcals/ kg) 55-60g Pro (1.2-1.3 g/kg) 8893-0258 ml (30-35 ml/kg) Current Diet Order/ Nutrition Support Cardiac Patient / S.O Can't verbalize diet edu Pertinent Medications Maalox (PRN), MOM (PRN), Theragran Pertinent Labs 11/13: PT 16.2, INR 1.64, Na 146, Cl 112, TSH 5.337, Free T4 0.85 Nutritional Hx/Data Height 1.7 m Height (Calculated Centimeters) 170.2 Current Weight (lbs) 47.174 kg Weight (Calculated Kilograms) 47.2 Weight (Calculated Grams) 80023.6 [place] Body Weight 135 LB (61.36 kg) % [place] Body Weight 77 Body Mass Index (BMI) 16.2 Weight Status Underweight GI Symptoms Last BM Not Noted Skin Integrity/Comment: Skin: WNL Wilbert: 19 Estimated Nutritional Goals BEE in Kcals: Using Current wt Calories/Kcals/Kg 30-35 Kcals Calculated 9419-2202 Protein: Using Current wt Protein g/k.2-1.3 Protein Calculated 55-60 Fluid: ml 4271-0998 ml (30-35 ml/kg) Nutritional Problem 2. Problem Problem Malnutrition Etiology r/t inadequate energy and protein intake Signs/Symptoms: aeb mild to moderate muscle and fat wasting noted on exam with some clavicle, Acromion, and kneecap protrusion, and slight bulb of muscle in calf region. 1. Problem Problem Underweight Etiology r/t chronic energy underconsumption Signs/Symptoms: aeb BMI >18.5 (16.31). Malnutrition Alert Body Fat Depletion (Non-Severe) Mild Depletion Muscle Mass (Non-Severe) Mild Depletion Is there a minimum of two criteria Yes selected? Query Text:Check all the applicable criteria. A minimum of two criteria are recommended for diagnosis of either severe or non-severe malnutrition. Malnutrition Related to Morbid Obesity Malnutrition related to morbid obesity No Intervention/Recommendation Recommendations by RD Increase Calorie Intake Comments 1.Continue cardiac diet as tolerated. 2.Add Ensure Enlive TID ( completed). 3.Nurse to encourage PO intake . 4.Weekly weights. Expected Outcomes/Goals Expected Outcomes/Goals 1.PO intake to meet 75% of estimated nutritional needs. 2.Gradual weight gain (~1.0 LB /week) trending toward IBW preferred. 3.Monitor PO intake, wt, nutrition related labs, and skin integrity. 4.F/U as moderate risk in 3-5 days, 11/18-11/20.
--- NOTE | 2019-12-13 03:09 | Discharge Summary ---
DATE OF DISCHARGE: 12/12/2019 Case was discussed with staff of the patient and reviewed records. This is an addendum to the discharge summary that was done yesterday. Discharge did not happen because they need a COVID-19 test. The patient is currently stable. No side effects to the medication, no sedation, no nausea, and no extrapyramidal symptoms. Sleeping well and eating well. No suicidal ideation, no homicidal ideation. The patient will be discharged today. Discharge diagnoses and plans are the same like they were dictated yesterday. JOB# [id number]
== END 2019-12-12 15:00 | DRG 884 ==
LOC: GERO 11-16 03:00 → UNDODISIN 12-05 15:30
PROVIDERS: ADMIT Psychiatry & Neurology Psychiatry; ATTEND Psychiatry & Neurology Psychiatry
DX: F03.91 Unspecified dementia, unspecified severity, with behavioral disturbance (principal); D68.9 Coagulation defect, unspecified; I10 Essential (primary) hypertension; Z20.828 Contact with and (suspected) exposure to other viral communicable diseases; F32.9 Major depressive disorder, single episode, unspecified
CPT/HCPCS: 36415-UA; 80053-TC; 80061-TC; 82948-90; 83036-90; 85014-TC; 85018-TC; 85025-TC; 85049-TC; 85610-TC; 90899; G0410; U0003-CS; Z7610